=== PATIENT | female | born 1940 | race Caucasian/White ===

== ENCOUNTER → 2016-07-11 | Outpatient (CLI) | payer MEDICARE ==
--- NOTE | 2016-07-12 13:17 | ECHOF ---
Referral Reason:I27 Primary Pulmonary Hypertension MEASUREMENTS -------- HEIGHT: 157.5 cm WEIGHT: 79.4 kg BP: IVSd: 1.2 cm (0.6 - 1.1) LVIDd: 4.5 cm (3.9 - 5.3) LVPWd: 1.1 cm (0.6 - 1.1) IVSs: 1.4 cm LVIDs: 3.1 cm LVPWs: 1.4 cm LA Diam: 3.0 cm (2.7 - 3.8) Ao Diam: 3.4 cm (2.0 - 3.7) AV Cusp: 1.5 cm (1.5 - 2.6) LA Diam: 2.7 cm (2.7 - 3.8) MV EXCURSION: 15.965 mm (> 18.000) MV EF SLOPE: 78 mm/s (70 - 150) EPSS: 0.9 cm MV E Viktor: 0.46 m/s MV DecT: 259 ms MV A Viktor: 0.74 m/s MV E/A Ratio: 0.62 RAP: 5.00 mmHg RVSP: 25.57 mmHg FINDINGS -------- Sinus rhythm. This was a technically good study. The left ventricular size is normal. There is mild concentric left ventricular hypertrophy. Overall left ventricular systolic function is normal with, an EF between 55 - 60 %. The right ventricle is normal in size. The left atrial size is normal. The right atrial size is normal. There is mild aortic valve sclerosis. There is no evidence of aortic regurgitation. The mitral valve is normal. Mild mitral regurgitation is present. Mild tricuspid regurgitation present. There is no evidence of pulmonary hypertension. The right ventricular systolic pressure, as measured by Doppler, is 25.57mmHg. There is no pulmonic regurgitation present. The aortic root size is normal. There is no pericardial effusion. CONCLUSIONS -------- 1. Sinus rhythm. 2. There is no evidence of pulmonary hypertension. 3. There is no pulmonic regurgitation present. 4. There is no pericardial effusion. 5. This was a technically good study. 6. There is mild concentric left ventricular hypertrophy. 7. Overall left ventricular systolic function is normal with, an EF between 55 - 60 %. 8. The left atrial size is normal. 9. There is mild aortic valve sclerosis. 10. There is no evidence of aortic regurgitation. 11. Mild mitral regurgitation is present. 12. Mild tricuspid regurgitation present. [employer] INSTALLER: Blanca Hyde RDCS
== END | disposition home or self-care (01) ==
LOC: RADECHMAIN 14:32
PROVIDERS: ATTEND Internal Medicine
DX: I34.0 Nonrheumatic mitral (valve) insufficiency (principal); I36.1 Nonrheumatic tricuspid (valve) insufficiency; I35.8 Other nonrheumatic aortic valve disorders
CPT/HCPCS: 93306

== ENCOUNTER 2016-09-25 14:05 | Emergency (ER) | payer MEDICARE ==
[2016-09-25 14:12] VITALS: BP 128/87; PULSE 62; RESP 18; TEMP 98.7
[2016-09-25 14:54] LABS: Basophils % (A) 0 %; CH 32.2; CHCM 34.4; Eosinophils # (A) 0.1 k/uL (0-0.7); Eosinophils % (A) 2 %; HCT 44.9 % (34.0-46.0); HDW 2.31; HGB 15.1 gm/dL (11.4-16.0); Luc # (Auto) 0.13; Luc % (Auto) 2; Lymphocytes # (A) 1.8 k/uL (1.0-4.8); Lymphocytes % (A) 33 %; MCH 31.5 pg (25.0-35.0); MCHC 33.6 g/dL (31.0-37.0); MCV 93.9 fL (80.0-100.0); Monocytes # (A) 0.3 k/uL (0-1.0); Monocytes % (A) 5 %; Neutrophils # (A) 3.1 k/uL (1.3-7.7); Neutrophils % (A) 57 %; RBC 4.78 m/uL (3.80-5.40); RDW 13.3 % (11.5-15.5); WBC 5.5 k/uL (3.8-10.6); WBC (Perox) 5.21
[2016-09-25 15:02] LABS: ALT 26 U/L (9-52); AST 31 U/L (14-36); Alkaline Phosphatase 62 U/L (38-126); Anion Gap 8 mmol/L; Blood Urea Nitrogen 16 mg/dL (7-17); Calcium 9.2 mg/dL (8.4-10.2); Carbon Dioxide 25 mmol/L (22-30); Chloride 105 mmol/L (98-107); Glucose 88 mg/dL (74-99); Non-African American GFR(MDRD) >60 (>60 ml/min/1.73 sqM); Potassium 4.7 mmol/L (3.5-5.1); Sodium 138 mmol/L (137-145); Total Protein 7.3 g/dL (6.3-8.2)
[2016-09-25 15:05] LABS: Amorphous Sediment,Urine Occasional /hpf; Appearance,Urine Cloudy (Clear); Bilirubin,Urine Negative (Negative); Glucose,Urine (UA) Negative (Negative); Ketones,Urine 2+ (Negative); Leukocyte Esterase,Urine Large (Negative); Mucus,Urine Few /hpf; Nitrite,Urine Negative (Negative); Particle Count 5535; Protein,Urine Trace (Negative); RBC,Urine 2 /hpf (0-5); Specific Gravity,Urine 1.016 (1.001-1.035); Squamous Epithelial Cell,Urine 18 /hpf (0-4); UA Billing (MACRO vs. MICRO) MICRO; Urobilinogen,Urine <2.0 mg/dL (<2.0); WBC,Urine 19 /hpf (0-5)
--- NOTE | 2016-09-25 16:00 | ED ---
General Adult HPI - General Chief complaint: Urogenital Stated complaint: Poss UTI Time Seen by Provider: 09/25/16 14:18 Source: patient, family, RN notes reviewed, old records reviewed Mode of arrival: wheelchair Limitations: no limitations - History of Present Illness Initial comments: Chief complaint and history of present illness a 76-year-old female presents after having been on Macrodantin for 5 days for urinary tract infection. Patient reports she just feels tired and weak in general. Further investigation the patient's been feeling tired and weak for more than a year. She has difficulty sleeping. When she does fall asleep she states really 4 hours. Recently she was placed on Cymbalta for depression which irritated her stomach. - Related Data Home Medications Medication Instructions Recorded Confirmed Lisinopril [Zestril] 20 mg PO DAILY 09/20/15 09/25/16 Ascorbic Acid [Vitamin C] 500 mg PO DAILY 09/25/16 09/25/16 Aspirin 81 mg PO DAILY 09/25/16 09/25/16 Calcium Carbonate [Calcium] 600 mg PO DAILY 09/25/16 09/25/16 Ferrous Sulfate [Iron (65 MG 325 mg PO DAILY 09/25/16 09/25/16 Elemental)] Instaflex 1 cap PO DAILY 09/25/16 09/25/16 Magnesium Oxide [Magnesium] 500 mg PO DAILY 09/25/16 09/25/16 Multivitamins, Thera [Multivitamin 1 tab PO DAILY 09/25/16 09/25/16 (formulary)] Nitrofurantoin Monohyd/M-Cryst 100 mg PO BID 09/25/16 09/25/16 [Macrobid 100 mg Capsule] [place]-3 Fatty Acids/Fish Oil [Fish 1,000 mg PO DAILY 09/25/16 09/25/16 Oil 1,000 mg Capsule] Ubidecarenone [Co Q-10] 100 mg PO DAILY 09/25/16 09/25/16 Vitamin B Complex 1 cap PO DAILY 09/25/16 09/25/16 Previous Rx's Medication Instructions Recorded Ciprofloxacin HCl [Cipro] 500 mg PO Q12HR #14 tablet 09/25/16 Allergies Allergy/AdvReac Type Severity Reaction Status Date / Time No Known Allergies Allergy Verified 09/25/16 15:00 Review of Systems ROS Statement: Those systems with pertinent positive or pertinent negative responses have been documented in the HPI. Review of systems. No headache or chest pain or shortness of breath no GI/ problems other than being treated for urinary tract infection. She still has frequency and mild urgency. No dysuria. Patient's denying any headache or visual acuity. Changes no chest pain shortness of breath with generalized weakness which is been ongoing for a year or longer. She has difficulty sleeping and her physician is tried several medications to assist in sleep but they've not been effective. It was suggested the patient follow up with counselor psychologist or psychiatrist to help her with her sense of depression. All systems are reviewed. Past medical problems GERD, hypertension , pneumonia, leaky heart valve and irregular heart rate and rhythm. Surgeries close ectopy, orthopedic surgery, tonsillectomy. Instructed facial surgery. Family history non-contributory. Patient's later on stated that she may have some reaction to sulfa. Nonsmoker nondrinker ROS Other: All systems not noted in ROS Statement are negative. Past Medical History Past Medical History: GERD/Reflux, Hypertension, Pneumonia Additional Past Medical History / Comment(s): "leaky heart valve,irregular heart beat". hiatal hernia, hx kindey stones History of Any Multi-Drug Resistant Organisms: None Reported Past Surgical History: Cholecystectomy, Orthopedic Surgery, Tonsillectomy Additional Past Surgical History / Comment(s): reconstructive facial surgery, rt carpal tunnel, rt bunionectomy Past Anesthesia/Blood Transfusion Reactions: No Reported Reaction Past Psychological History: No Psychological Hx Reported Smoking Status: Never smoker Past Alcohol Use History: None Reported Past Drug Use History: None Reported - Past Family History Mother Family Medical History: Cancer General Exam - General Exam Comments Initial Comments: General: The patient is awake and alert, in no distress, and does not appear acutely ill. Complains of generally feeling weak for 1 year. She's had total workup several times during that time including an wound care nurse multiple labs done 1 month ago which she reports are negative. Recently placed on Cymbalta which made her have a mildly upset stomach so she stopped that. She's been on Macrodantin for 5 days. Still some urinary tract symptoms such as frequency and urgency but no dysuria. No blood in the urine. Vital signs shows temperature 98.7 pulse 60 respiratory rate 18 pulse ox 98% room air blood pressure 128/87 Eye: Pupils are equal, round and reactive to light, extra-ocular movements are intact ; there is normal conjunctiva bilaterally. No signs of icterus. Ears, nose, mouth and throat: There are moist mucous membranes and no oral lesions. Neck: The neck is supple, there is no tenderness . Cardiovascular: There is a regular rate and rhythm. Faint systolic murmur appreciated., rub or gallop is appreciated. Respiratory: Lungs are clear to auscultation, respirations are non-labored, breath sounds are equal. No wheezes, stridor, rales, or rhonchi. Gastrointestinal: Soft, non-distended, non-tender abdomen without masses or organomegaly noted. There is no rebound or guarding present. Bowel sounds are unremarkable. Back: There is no tenderness to palpation in the midline. Musculoskeletal: Normal ROM, no tenderness, There is no pedal edema. There is no calf tenderness or swelling. Neurological: No complaint of any focal or lateralizing symptoms. Skin: Skin is warm and dry and no rashes or lesions are noted. Psychiatric: Cooperative, somewhat flat affect. Does not argue that she may be depressed. Does not describe any suicidal thoughts. Encouraged to discuss this with her family physician for referral to a psychologist or psychiatrist. Patient agrees she will do this. Limitations: no limitations Course Vital Signs 09/25/16 14:09 Temperature 98.7 F Pulse Rate 62 Respiratory 18 Rate Blood Pressure 128/87 O2 Sat by Pulse 98 Oximetry Medical Decision Making - Medical Decision Making Medical decision making patient white count 5 hemoglobin 15 hematocrit of 44 with a potassium 4.7. BUN 16 creatinine 0.73 the GFR greater than 60. Glucose 88. TSH normal at 2.1. Urinalysis still shows significant number of red and white cells with large leuk esterase. The patient be placed on Cipro 500 twice a day for one week and advised to get her urine rechecked within the week after that. Also discussed with her family physician clinical depression. - Lab Data Result diagrams: 09/25/16 14:35 09/25/16 14:35 Lab Results 09/25/16 09/25/16 09/25/16 Range/Units 14:35 14:35 14:35 WBC 5.5 (3.8-10.6) k/uL RBC 4.78 (3.80-5.40) m/uL Hgb 15.1 (11.4-16.0) gm/dL Hct 44.9 (34.0-46.0) % MCV 93.9 (80.0-100.0) fL MCH 31.5 (25.0-35.0) pg MCHC 33.6 (31.0-37.0) g/dL RDW 13.3 (11.5-15.5) % Plt Count 194 (150-450) k/uL Neutrophils % 57 % Lymphocytes % 33 % Monocytes % 5 % Eosinophils % 2 % Basophils % 0 % Neutrophils # 3.1 (1.3-7.7) k/uL Lymphocytes # 1.8 (1.0-4.8) k/uL Monocytes # 0.3 (0-1.0) k/uL Eosinophils # 0.1 (0-0.7) k/uL Basophils # 0.0 (0-0.2) k/uL Sodium 138 (137-145) mmol/L Potassium 4.7 (3.5-5.1) mmol/L Chloride 105 (98-107) mmol/L Carbon Dioxide 25 (22-30) mmol/L Anion Gap 8 mmol/L BUN 16 (7-17) mg/dL Creatinine 0.73 (0.52-1.04) mg/dL Est GFR (MDRD) Af Amer >60 (>60 ml/min/1.73 sqM) Est GFR (MDRD) Non-Af >60 (>60 ml/min/1.73 sqM) Glucose 88 (74-99) mg/dL Calcium 9.2 (8.4-10.2) mg/dL Total Bilirubin 1.0 (0.2-1.3) mg/dL AST 31 (14-36) U/L ALT 26 (9-52) U/L Alkaline Phosphatase 62 (38-126) U/L Total Protein 7.3 (6.3-8.2) g/dL Albumin 4.4 (3.5-5.0) g/dL TSH 2.110 (0.465-4.680) mIU/L Urine Color Dark Yellow Urine Appearance Cloudy H (Clear) Urine pH 7.0 (5.0-8.0) Ur Specific [place] 1.016 (1.001-1.035) Urine Protein Trace H (Negative) Urine Glucose (UA) Negative (Negative) Urine Ketones 2+ H (Negative) Urine Blood Negative (Negative) Urine Nitrite Negative (Negative) Urine Bilirubin Negative (Negative) Urine Urobilinogen <2.0 (<2.0) mg/dL Ur Leukocyte Esterase Large H (Negative) Urine RBC 2 (0-5) /hpf Urine WBC 19 H (0-5) /hpf Ur Squamous Epith Cells 18 H (0-4) /hpf Amorphous Sediment Occasional H (None) /hpf Urine Mucus Few H (None) /hpf Disposition Clinical Impression: Urinary tract infection Disposition: HOME SELF-CARE Condition: Fair Instructions: Urinary Tract Infection in Women (ED) Additional Instructions: Follow-up with the family physician and ask about counseling with psychologist or psychiatrist for evaluation for situational depression. Continue with home medications and stop Macrodantin and take Cipro 500 twice daily 7 days also get urine rechecked within the week after finishing the antibiotics. Prescriptions: Ciprofloxacin HCl [Cipro] 500 mg PO Q12HR #14 tablet Referrals: Mell Fox MD [Primary Care Provider] - 1-2 days Time of Disposition: 16:08
== END 2016-09-25 16:19 | disposition home or self-care (01) ==
LOC: EC 14:05
DX: N39.0 Urinary tract infection, site not specified (principal); R53.1 Weakness; F32.9 Major depressive disorder, single episode, unspecified; K21.9 Gastro-esophageal reflux disease without esophagitis; I10 Essential (primary) hypertension; Z87.01 Personal history of pneumonia (recurrent); Z79.82 Long term (current) use of aspirin; Z79.899 Other long term (current) drug therapy
CPT/HCPCS: 36415; 80053; 81001; 84443; 85025; 87086; 99284

== ENCOUNTER → 2017-02-06 | Outpatient (CLI) | payer MEDICARE ==
--- NOTE | 2017-02-06 18:47 | BD ---
EXAMINATION TYPE: MG DEXA axial skeleton. DATE OF EXAM: 02/06/2017 COMPARISON: 01.09.2014 CLINICAL HISTORY: PT IS A 76 YR OLD FEMALE: ICD10 CODE: Z78.0 POST MENOPAUSAL Height: 68 Weight: 170 FRAX RISK QUESTIONS: Alcohol (3 or more units per day): NO Family History (Parent hip fracture): NO Glucocorticoids (More than 3mos): NO (Ex: prednisone, prednisolone, methylprednisolone, dexamethasone, and hydrocortisone). History of Fracture in Adulthood: YES Secondary Osteoporosis: NO 1. Type 1 Diabetes: NO 2. Hyperthyroidism: NO 3. Menopause before 45: NO 4. Malnutrition: NO 5. Chronic liver disease: NO Rheumatoid Arthritis: NO Current Tobacco Use: NO RISK FACTORS HISTORY OF: BOTH FEET/TOES, LT ANKLE AND LT ORBIT/FACIAL BONES >50 YRS OLD History of Wrist Fracture: RT When: > 50 YRS, 73 YRS OLD Family History of Osteoporosis: NO Active: YES Diet low in dairy products/other sources of calcium: NO Postmenopausal woman: YES AT AGE 53 Take estrogen and/or progesterone medications: TOOK IN PAST 3-4 YRS Lost more than 2 inches in height since high school: YES Hyperparathyroidism: NO Adrenal Insufficiency: NO MEDICATIONS: Prednisone or other steroids: PREDNISONE ON AND OFF Additional Medications: BP MEDS, VIIBRYD, VIT D AND CALCIUM Additional History: HYPERTENSION, INSOMNIA EXAM MEASUREMENTS: Bone mineral densitometry was performed using the [employer]ek System. Bone mineral density as measured about the Lumbar spine is: ----- L1-L4(G/cm2): 1.140 T Score Values are as follows: ----- L1: -1.6 ----- L2: -1.9 ----- L3: 0.2 ----- L4: 1.1 ----- L1-L4: -0.3 Bone mineral density has: Decreased -3.6% since study of: 01.09.2014 Bone mineral density about the R hip (g/cm2): 0.811 Bone mineral density about the L hip (g/cm2): 0.806 T Score values are as follows: -----R Neck: -0.5 -----L Neck: -1.5 -----R Total: -1.6 -----L Total: -1.6 Bone mineral density has: Decreased -5.9% since study of: 01.09.2014 FRAX%'S: THERE IS A 17.3% CHANCE OF A MAJOR OSTEOPOROTIC FX AND A 3.2% OF HIP FX.....PROBABILITY O F FX IN 10 YRS TIME IMPRESSION: Osteopenia (T Score between -2.5 and -1) as noted by T score values with respect to both hips. There is slightly increased risk of fracture and the patient may be considered for treatment. Re-Screen 2-5 years. NOTE: T-SCORE=SD OF THE YOUNG ADULT MEAN.
--- NOTE | 2017-02-07 06:58 | MM ---
Reason for exam: screening (asymptomatic). Last mammogram was performed 1 year ago. History: Patient is postmenopausal and has history of other cancer at age 74. Took estrogen for 5 years beginning at age 71. Physical Findings: A clinical breast exam by your physician is recommended on an annual basis and results should be correlated with mammographic findings. MG 3D Screening Mammo W/Cad Bilateral CC and MLO view(s) were taken. Prior study comparison: February 05, 2016, bilateral MG 3d screening mammo w/cad. February 03, 2015, bilateral MG screening mammo w CAD. January 14, 2014, right breast MG work up mamm w CAD RT. The breast tissue is heterogeneously dense. This may lower the sensitivity of mammography. Finding: There are a few typically benign round, diffuse calcifications in both breasts. There is a chronic nodularity bilaterally, retroaerolar region. There is no discrete abnormality. ASSESSMENT: Benign, BI-RAD 2 RECOMMENDATION: Routine screening mammogram of both breasts in 1 year.
== END | disposition home or self-care (01) ==
LOC: RADMAMWWP 11:33
PROVIDERS: ATTEND Internal Medicine
DX: Z12.31 Encounter for screening mammogram for malignant neoplasm of breast (principal); M85.89 Other specified disorders of bone density and structure, multiple sites; Z78.0 Asymptomatic menopausal state
CPT/HCPCS: 77080; 77063; G0202

== ENCOUNTER 2017-09-18 10:32 | Emergency (ER) | payer MEDICARE ==
[2017-09-18 10:39] VITALS: PULSE 71
[2017-09-18] MEDS ORDERED: ONDANSETRON 4 MG/2 ML VIAL IVP STA (11:04)
[2017-09-18] MEDS ORDERED: FAMOTIDINE 20 MG/2 ML VIAL IV STA (11:04)
[2017-09-18] MEDS ORDERED: ACETAMINOPHEN IV (For NPO) 1,000 MG in EMPTY BAG 1 BAG IVPB STA (11:04)
[2017-09-18] MEDS ORDERED: SODIUM CHLORIDE 0.9% 1,000 ML IV STA (11:04)
--- NOTE | 2017-09-18 11:07 | ED ---
General Adult HPI - General Chief complaint: Abdominal Pain Stated complaint: abdominal pain Time Seen by Provider: 09/18/17 10:41 Source: patient, EMS, RN notes reviewed Mode of arrival: EMS Limitations: no limitations - History of Present Illness Initial comments: Patient is a 77-year-old female presented to the emergency room today by EMS with chief complaint of nausea vomiting diarrhea times one day. Patient does admit to cramping type abdominal pain that comes and goes and middle of the abdomen. Patient denies any other complaints or symptoms. Patient denies any recent fever, chills, shortness of breath, chest pain, back pain, numbness or tingling, dysuria or hematuria, constipation, headaches or visual changes, or any other complaints. - Related Data Home Medications Medication Instructions Recorded Confirmed Lisinopril [Zestril] 20 mg PO DAILY 09/20/15 09/18/17 [facility] 2 tab PO BID 09/18/17 09/18/17 Vilazodone HCl [Viibryd] 40 mg PO DAILY 09/18/17 09/18/17 hydrOXYzine HCL [Atarax] 25 mg PO HS 09/18/17 09/18/17 Previous Rx's Medication Instructions Recorded Ondansetron Odt [Zofran ODT] 4 mg PO Q8HR PRN #20 tab 09/18/17 Allergies Allergy/AdvReac Type Severity Reaction Status Date / Time No Known Allergies Allergy Verified 09/18/17 11:19 Review of Systems ROS Statement: Those systems with pertinent positive or pertinent negative responses have been documented in the HPI. ROS Other: All systems not noted in ROS Statement are negative. Past Medical History Past Medical History: GERD/Reflux, Hypertension, Pneumonia Additional Past Medical History / Comment(s): "leaky heart valve,irregular heart beat". hiatal hernia, hx kindey stones History of Any Multi-Drug Resistant Organisms: None Reported Past Surgical History: Cholecystectomy, Orthopedic Surgery, Tonsillectomy Additional Past Surgical History / Comment(s): cataract extraction, reconstructive facial surgery, rt carpal tunnel, rt bunionectomy Past Anesthesia/Blood Transfusion Reactions: No Reported Reaction Past Psychological History: Depression Smoking Status: Never smoker Past Alcohol Use History: None Reported Past Drug Use History: None Reported - Past Family History Mother Family Medical History: Cancer General Exam - General Exam Comments Initial Comments: General: The patient is awake and alert, in no distress, and does not appear acutely ill. Eye: Pupils are equal, round and reactive to light, extra-ocular movements are intact. No nystagmus. There is normal conjunctiva bilaterally. No signs of icterus. Ears, nose, mouth and throat: There are moist mucous membranes and no oral lesions. Neck: The neck is supple, there is no tenderness or JVD. Cardiovascular: There is a regular rate and rhythm. No murmur, rub or gallop is appreciated. Respiratory: Lungs are clear to auscultation, respirations are non-labored, breath sounds are equal. No wheezes, stridor, rales, or rhonchi. Gastrointestinal: Admits soft on palpation. Patient does have mild tenderness epigastric. Mild tenderness lower abdomen and middle. No rebound tenderness. No guarding. No CVA tenderness. Musculoskeletal: Normal ROM, no tenderness. Strength 5/5. Sensation intact. Pulses equal bilaterally 2+. Neurological: A&O x 3. CN II-XII intact, There are no obvious motor or sensory deficits. Coordination appears grossly intact. Speech is normal. Skin: Skin is warm and dry and no rashes or lesions are noted. Psychiatric: Cooperative, appropriate mood & affect, normal judgment. Limitations: no limitations Course Vital Signs 09/18/17 10:34 Temperature 98.1 F Pulse Rate 71 Respiratory 18 Rate Blood Pressure 171/86 O2 Sat by Pulse 100 Oximetry Medical Decision Making - Medical Decision Making Patient reexamined at this time shows no signs of distress. She's had no vomiting here the emergency room. She states that she still does feel somewhat nauseous. Patient's CT of the abdomen does show some renal cyst that has been redemonstrated from prior. Small hiatal hernia. No other acute abnormalities. Results were discussed with the patient. Patient's labs been reviewed unremarkable. Patient's abdomen soft nontender. Patient will be discharged home with nausea medication. Advise follow-up family doctor next 2 days return here to the emergency room if any symptoms increase or worsen or for any other concerns. - Lab Data Result diagrams: 09/18/17 11:33 09/18/17 11:33 Lab Results 09/18/17 09/18/17 09/18/17 Range/Units 11:33 11:33 12:39 WBC 6.0 (3.8-10.6) k/uL RBC 4.79 (3.80-5.40) m/uL Hgb 14.8 (11.4-16.0) gm/dL Hct 43.1 (34.0-46.0) % MCV 90.0 (80.0-100.0) fL MCH 30.9 (25.0-35.0) pg MCHC 34.3 (31.0-37.0) g/dL RDW 13.2 (11.5-15.5) % Plt Count 178 (150-450) k/uL Neutrophils % 77 % Lymphocytes % 18 % Monocytes % 4 % Eosinophils % 1 % Basophils % 0 % Neutrophils # 4.6 (1.3-7.7) k/uL Lymphocytes # 1.1 (1.0-4.8) k/uL Monocytes # 0.2 (0-1.0) k/uL Eosinophils # 0.0 (0-0.7) k/uL Basophils # 0.0 (0-0.2) k/uL Sodium 142 (137-145) mmol/L Potassium 4.0 (3.5-5.1) mmol/L Chloride 105 (98-107) mmol/L Carbon Dioxide 24 (22-30) mmol/L Anion Gap 13 mmol/L BUN 12 (7-17) mg/dL Creatinine 0.66 (0.52-1.04) mg/dL Est GFR (CKD-EPI)AfAm >90 (>60 ml/min/1.73 sqM) Est GFR (CKD-EPI)NonAf 86 (>60 ml/min/1.73 sqM) Glucose 107 H (74-99) mg/dL Calcium 9.2 (8.4-10.2) mg/dL Total Bilirubin 0.8 (0.2-1.3) mg/dL AST 21 (14-36) U/L ALT 28 (9-52) U/L Alkaline Phosphatase 68 (38-126) U/L Total Protein 6.6 (6.3-8.2) g/dL Albumin 4.3 (3.5-5.0) g/dL Amylase 57 (30-110) U/L Lipase 243 (23-300) U/L Urine Color Yellow Urine Appearance Clear (Clear) Urine pH 8.0 (5.0-8.0) Ur Specific [place] 1.012 (1.001-1.035) Urine Protein Negative (Negative) Urine Glucose (UA) Negative (Negative) Urine Ketones 2+ H (Negative) Urine Blood Negative (Negative) Urine Nitrite Negative (Negative) Urine Bilirubin Negative (Negative) Urine Urobilinogen <2.0 (<2.0) mg/dL Ur Leukocyte Esterase Negative (Negative) Disposition Clinical Impression: Nausea vomiting and diarrhea Disposition: HOME SELF-CARE Condition: Good Instructions: Abdominal Pain (ED) Additional Instructions: Please use medication as discussed. Please follow-up with family doctor in the next 2 days of symptoms have not improved. Please return to emergency room if the symptoms increase or worsen or for any other concerns. Prescriptions: Ondansetron Odt [Zofran ODT] 4 mg PO Q8HR PRN #20 tab PRN Reason: Nausea Is patient prescribed a controlled substance at d/c from ED?: No Referrals: Mell Fox MD [Primary Care Provider] - 1-2 days Time of Disposition: 13:34
[2017-09-18 11:53] LABS: Basophils % (A) 0 %; Eosinophils % (A) 1 %; HCT 43.1 % (34.0-46.0); HGB 14.8 gm/dL (11.4-16.0); Lymphocytes # (A) 1.1 k/uL (1.0-4.8); Lymphocytes % (A) 18 %; MCH 30.9 pg (25.0-35.0); MCHC 34.3 g/dL (31.0-37.0); Mean Platelet Volume 6.6; Monocytes # (A) 0.2 k/uL (0-1.0); Monocytes % (A) 4 %; Neutrophils # (A) 4.6 k/uL (1.3-7.7); Neutrophils % (A) 77 %; Platelet Count 178 k/uL (150-450); RBC 4.79 m/uL (3.80-5.40); RDW 13.2 % (11.5-15.5)
[2017-09-18 11:56] LABS: ALT 28 U/L (9-52); AST 21 U/L (14-36); Albumin 4.3 g/dL (3.5-5.0); Alkaline Phosphatase 68 U/L (38-126); Amylase 57 U/L (30-110); Anion Gap 13 mmol/L; Blood Urea Nitrogen 12 mg/dL (7-17); Calcium 9.2 mg/dL (8.4-10.2); Carbon Dioxide 24 mmol/L (22-30); Chloride 105 mmol/L (98-107); Glucose 107 mg/dL (74-99); Lipase 243 U/L (23-300); Sodium 142 mmol/L (137-145); Total Bilirubin 0.8 mg/dL (0.2-1.3); Total Protein 6.6 g/dL (6.3-8.2)
[2017-09-18 12:55] LABS: Appearance,Urine Clear (Clear); Bilirubin,Urine Negative (Negative); Blood,Urine Negative (Negative); Color,Urine Yellow; Glucose,Urine (UA) Negative (Negative); Ketones,Urine 2+ (Negative); Leukocyte Esterase,Urine Negative (Negative); Nitrite,Urine Negative (Negative); Protein,Urine Negative (Negative); Specific Gravity,Urine 1.012 (1.001-1.035); Urobilinogen,Urine <2.0 mg/dL (<2.0)
--- NOTE | 2017-09-18 13:10 | CT ---
EXAMINATION TYPE: CT abdomen pelvis w con DATE OF EXAM: 09/18/2017 COMPARISON: 12/31/2013 HISTORY: Patient complains of epigastric pain and nausea. CT DLP: 557.8 mGycm CONTRAST: CT scan of the abdomen and pelvis is performed without Oral Contrast and with IV Contrast, patient in jected with 100 mL of Isovue 300. FINDINGS: LUNG BASES-: No visible nodule. No infiltrate. Sliding-type hiatal hernia. LIVER/GB: Cholecystectomy clips are in place. Mild hepatic steatosis. No space occupying hepatic l esion. Biliary tree is of normal caliber. PANCREAS: No inflammation. No distinct mass. SPLEEN: No splenic enlargement. No lesion seen. ADRENALS: No nodule. No thickening. KIDNEYS/BLADDER: No hydronephrosis. No nephrolithiasis. Bilateral renal cysts are again noted. Urin herbert bladder grossly unremarkable. BOWEL: Normal appendix. Normal bowel caliber. No inflammation. GENITAL ORGANS: No gross abnormality. LYMPH NODES: No greater than 1cm abdominal or pelvic lymph nodes are appreciated. AORTA: No significant abnormality. OSSEOUS STRUCTURES: No significant abnormality is seen. OTHER: No significant additional abnormality is seen. IMPRESSION: 1. No acute intra-abdominal process. 2. Renal cystic changes noted. 3. Small sliding-type hiatal hernia.
[2017-09-18 13:59] VITALS: BP 150/90; RESP 20; TEMP 97.9
== END 2017-09-18 13:47 | disposition home or self-care (01) ==
LOC: EC 10:32
DX: R11.2 Nausea with vomiting, unspecified (principal); R19.7 Diarrhea, unspecified; N28.1 Cyst of kidney, acquired; K44.9 Diaphragmatic hernia without obstruction or gangrene; R10.9 Unspecified abdominal pain; I10 Essential (primary) hypertension; F32.9 Major depressive disorder, single episode, unspecified; Z79.899 Other long term (current) drug therapy; Z90.49 Acquired absence of other specified parts of digestive tract
CPT/HCPCS: 99284; 96374; 96375 ×2; 96361; 36415; 80053; 82150; 83690; 85025; 81003; 74177; J2405; J0131; Q9967

== ENCOUNTER 2017-10-08 13:14 | Emergency (ER) | payer MEDICARE ==
[2017-10-08 13:36] VITALS: RESP 18; TEMP 98.2
[2017-10-08] MEDS ORDERED: FAMOTIDINE 20 MG/2 ML VIAL IV STA (13:52)
[2017-10-08] MEDS ORDERED: DICYCLOMINE 20 MG TAB PO STA (13:52)
[2017-10-08] MEDS ORDERED: SODIUM CHLORIDE 0.9% 1,000 ML IV ONE (13:52)
[2017-10-08] MEDS ORDERED: TRIMETHOBENZAMIDE 300 MG CAP PO STA (13:53)
--- NOTE | 2017-10-08 13:58 | ED ---
Abdominal Pain HPI - General Chief Complaint: Abdominal Pain Stated Complaint: IBS Time Seen by Provider: 10/08/17 13:41 Source: patient Mode of arrival: ambulatory Limitations: no limitations - History of Present Illness Initial Comments: 77 yoF presenting with cramping abdominal pain, diarrhea, and nausea. Patient states she has had these symptoms intermittently at night for many years. Over the last month they have increased in frequency and severity. She was seen on 09/18 this month for similar symptoms, had a normal CT abdomen pelvis, and was discharged home with Zofran. Patient states she felt improved after but then this Monday the symptoms returned. She initially was feeling constipated and used a Fleet enema with some relief. She has now had multiple episodes of yellow diarrhea and severe nausea but no vomiting. She states the symptoms are accompanied by severe abdominal cramping that is improved with bowel activity, but not alleviated, and are worse at night. The zofran is not helping her symptoms and her last dose was OILSEED MEAT PRESSER. She denies history of IBD, IBS, and states she had a normal colonoscopy two years prior. She has been trying to follow up with her primary care doctor for a referral to a GI doctor (required by her insurance) but has been unable to obtain an appointment. She denies urinary symptoms, chest pain, shortness of breath, F/C. She denies history of atrial fibrillation or anticoagulation use. Denies melena, hematochezia, or other bloody bowel movements. - Related Data Home Medications Medication Instructions Recorded Confirmed Lisinopril [Zestril] 20 mg PO DAILY 09/20/15 10/08/17 [facility] 2 tab PO BID 09/18/17 10/08/17 Vilazodone HCl [Viibryd] 40 mg PO DAILY 09/18/17 10/08/17 Previous Rx's Medication Instructions Recorded Dicyclomine [Bentyl] 10 mg PO TID PRN #20 capsule 10/08/17 Allergies Allergy/AdvReac Type Severity Reaction Status Date / Time No Known Allergies Allergy Verified 10/08/17 13:36 Review of Systems ROS Statement: Those systems with pertinent positive or pertinent negative responses have been documented in the HPI. Review of Systems Constitutional: Denies fever, chills Eyes: Denies change in vision, Denies pain Ears, nose, mouth, throat: Denies headaches, Denies sore throat Cardiovascular: Denies chest pain. Denies palpitations Respiratory: Denies shortness of breath, Denies cough Gastrointestinal: Positive abdominal pain, nausea, diarrhea. Genitourinary: Denies hematuria, Denies infections Musculoskeletal: Denies pain, Denies swelling Integumentary: Denies rash Neurological: Denies headache, focal weakness, focal numbness Psychiatric: Denies anxiety, Denies depression Hematologic/Lymphatic: Denies easy bleeding or bruising ROS Other: All systems not noted in ROS Statement are negative. Past Medical History Past Medical History: GERD/Reflux, Hypertension, Pneumonia Additional Past Medical History / Comment(s): "leaky heart valve,irregular heart beat". hiatal hernia, hx kindey stones History of Any Multi-Drug Resistant Organisms: None Reported Past Surgical History: Cholecystectomy, Orthopedic Surgery, Tonsillectomy Additional Past Surgical History / Comment(s): cataract extraction, reconstructive facial surgery, rt carpal tunnel, rt bunionectomy Past Anesthesia/Blood Transfusion Reactions: No Reported Reaction Past Psychological History: Depression Smoking Status: Never smoker Past Alcohol Use History: None Reported Past Drug Use History: None Reported - Past Family History Mother Family Medical History: Cancer General Exam - General Exam Comments Initial Comments: General: Awake, alert, No acute Distress HENT: Normocephalic. Atraumatic Eyes: PERRL. EOMI. No scleral icterus. No injected conjunctiva Neck: Full ROM Chest/Lungs: Clear to auscultation bilaterally. No wheezing, rhonchi, or rales Cardiac: Regular rate, rhythm. No murmurs or rubs Abdomen/GI: [Soft, nontender, nondistended. No rebound, guarding, or rigidity. Musculoskeletal: Full ROM Skin: Warm, dry, intact Neurologic: A/Ox3, no weakness, no sensory deficit, no abnormal gait, no coordination deficit Limitations: no limitations Course Vital Signs 10/08/17 13:33 Temperature 98.2 F Pulse Rate 73 Respiratory 18 Rate Blood Pressure 142/103 O2 Sat by Pulse 99 Oximetry Medical Decision Making - Medical Decision Making 77-year-old female presenting with nausea vomiting diarrhea. Initial exam the patient is awake, alert, no acute distress. VSS. Patient's laboratory workup unremarkable. CT showed a renal cyst but no other acute process. Patient's symptoms improved with medication. Patient's symptoms likely related to diet and possibly IBS. She was instructed to follow up with the GI doctor she has been wanting to see, as well as her primary care physician. She had no chest pain, upper abdominal pain, or shortness of breath. No cardiac workup was indicated. No further emergent workup indicated. The patient was given return to ED instructions. They were instructed to follow up with their primary care provider. Stable for discharge at this time. - Lab Data Result diagrams: 10/08/17 14:20 10/08/17 14:20 Lab Results 10/08/17 10/08/17 10/08/17 Range/Units 14:20 14:20 14:20 WBC 5.5 (3.8-10.6) k/uL RBC 4.80 (3.80-5.40) m/uL Hgb 15.2 (11.4-16.0) gm/dL Hct 43.9 (34.0-46.0) % MCV 91.4 (80.0-100.0) fL MCH 31.6 (25.0-35.0) pg MCHC 34.6 (31.0-37.0) g/dL RDW 13.4 (11.5-15.5) % Plt Count 182 (150-450) k/uL Neutrophils % 68 % Lymphocytes % 25 % Monocytes % 4 % Eosinophils % 2 % Basophils % 0 % Neutrophils # 3.7 (1.3-7.7) k/uL Lymphocytes # 1.4 (1.0-4.8) k/uL Monocytes # 0.2 (0-1.0) k/uL Eosinophils # 0.1 (0-0.7) k/uL Basophils # 0.0 (0-0.2) k/uL Sodium 141 (137-145) mmol/L Potassium 4.0 (3.5-5.1) mmol/L Chloride 104 (98-107) mmol/L Carbon Dioxide 27 (22-30) mmol/L Anion Gap 10 mmol/L BUN 15 (7-17) mg/dL Creatinine 0.80 (0.52-1.04) mg/dL Est GFR (CKD-EPI)AfAm 83 (>60 ml/min/1.73 sqM) Est GFR (CKD-EPI)NonAf 72 (>60 ml/min/1.73 sqM) Glucose 94 (74-99) mg/dL Calcium 9.3 (8.4-10.2) mg/dL Total Bilirubin 0.9 (0.2-1.3) mg/dL Conjugated Bilirubin 0.0 (0.0-0.3) mg/dL Unconjugated Bilirubin 0.6 (0.0-1.1) mg/dL Delta Bilirubin 0.3 H (0.0-0.2) mg/dL AST 22 (14-36) U/L ALT 30 (9-52) U/L Alkaline Phosphatase 64 (38-126) U/L Total Protein 6.9 (6.3-8.2) g/dL Albumin 4.5 (3.5-5.0) g/dL Lipase 256 (23-300) U/L Urine Color Yellow Urine Appearance Clear (Clear) Urine pH 6.0 (5.0-8.0) Ur Specific [place] 1.021 (1.001-1.035) Urine Protein Trace H (Negative) Urine Glucose (UA) Negative (Negative) Urine Ketones 2+ H (Negative) Urine Blood Negative (Negative) Urine Nitrite Negative (Negative) Urine Bilirubin Negative (Negative) Urine Urobilinogen <2.0 (<2.0) mg/dL Ur Leukocyte Esterase Trace H (Negative) Urine RBC 2 (0-5) /hpf Urine WBC 3 (0-5) /hpf Ur Squamous Epith Cells 1 (0-4) /hpf Amorphous Sediment Rare H (None) /hpf Urine Bacteria Rare H (None) /hpf Urine Mucus Many H (None) /hpf Disposition Clinical Impression: Emesis, IBS (irritable bowel syndrome), Cramp, abdominal Disposition: HOME SELF-CARE Condition: Good Additional Instructions: Follow up with your primary care doctor this week. Call GI doctor and make an appointment. Prescriptions: Dicyclomine [Bentyl] 10 mg PO TID PRN #20 capsule PRN Reason: pain Is patient prescribed a controlled substance at d/c from ED?: No Referrals: Mell Fox MD [Primary Care Provider] - 1-2 days
[2017-10-08 14:35] LABS: Basophils % (A) 0 %; Eosinophils # (A) 0.1 k/uL (0-0.7); Eosinophils % (A) 2 %; HCT 43.9 % (34.0-46.0); HGB 15.2 gm/dL (11.4-16.0); Lymphocytes # (A) 1.4 k/uL (1.0-4.8); Lymphocytes % (A) 25 %; MCH 31.6 pg (25.0-35.0); MCHC 34.6 g/dL (31.0-37.0); MCV 91.4 fL (80.0-100.0); Mean Platelet Volume 6.5; Monocytes # (A) 0.2 k/uL (0-1.0); Monocytes % (A) 4 %; Neutrophils # (A) 3.7 k/uL (1.3-7.7); Neutrophils % (A) 68 %; Platelet Count 182 k/uL (150-450); RDW 13.4 % (11.5-15.5); WBC 5.5 k/uL (3.8-10.6)
[2017-10-08 14:40] LABS: Amorphous Sediment,Urine Rare /hpf; Appearance,Urine Clear (Clear); Bacteria,Urine Rare /hpf; Bilirubin,Urine Negative (Negative); Blood,Urine Negative (Negative); Color,Urine Yellow; Glucose,Urine (UA) Negative (Negative); Ketones,Urine 2+ (Negative); Leukocyte Esterase,Urine Trace (Negative); Mucus,Urine Many /hpf; Nitrite,Urine Negative (Negative); Protein,Urine Trace (Negative); RBC,Urine 2 /hpf (0-5); Specific Gravity,Urine 1.021 (1.001-1.035); Squamous Epithelial Cell,Urine 1 /hpf (0-4); Urobilinogen,Urine <2.0 mg/dL (<2.0); WBC,Urine 3 /hpf (0-5)
[2017-10-08 14:45] LABS: Albumin 4.5 g/dL (3.5-5.0); Bilirubin, Delta 0.3 mg/dL (0.0-0.2); Bilirubin,Unconjugated 0.6 mg/dL (0.0-1.1); Calcium 9.3 mg/dL (8.4-10.2); Total Bilirubin 0.9 mg/dL (0.2-1.3); Total Protein 6.9 g/dL (6.3-8.2)
--- NOTE | 2017-10-08 16:25 | CT ---
EXAMINATION TYPE: CT angio abdomen pelvis DATE OF EXAM: 10/08/2017 COMPARISON: 09/18/2017 INDICATION: Treytent complains of nausea, diarrhea, and generalized abdominal pain. DLP: 667.7 mGycm, Automated exposure control for dose reduction was used. CONTRAST: 100 mL of Isovue 300. Study performed without Oral Contrast TECHNIQUE: Axial images were obtained from above the diaphragm to the pubic rami in the axial plane a t 5 mm thick sections. Reconstructed images are reviewed on the computer in the coronal plane. FINDINGS: Limited CT sections are obtained the lung bases. There is some tenting of the mediastinal border in the right middle lobe. Some atelectasis or scarring could be considered. Lung bases otherwise appear clear. CT ABDOMEN: Liver: Normal Spleen: Normal Pancreas: Normal, Pancreatic duct at the head of the pancreas is normal 0.3 cm. Adrenal glands: The adrenal glands are normal. Gallbladder: Surgically absent Kidneys: No masses are evident. No hydronephrosis is present. There is a 2.1 cm cyst measuring 19 H [place] units on the posterior lateral right mid kidney. Delayed images were obtained through the kidneys, which remain unremarkable. Aorta: Normal Inferior vena cava: Normal. CT PELVIS: Loops of bowel within the abdomen and pelvis are normal. There are loops of bowel which are incom pletely distended or lack oral contrast limiting their evaluation. Appendix: Not visualized. No suspicious inflammatory changes are evident. Urinary bladder: Normal. Genitourinary structures: Uterus and adnexal regions are normal. Osseous structures: No suspicious lytic or sclerotic lesions. Facet degenerative changes are within t he lumbar spine. IMPRESSIONS: 1. Right renal cyst. 2. No suspicious acute changes within the abdomen or pelvis.
[2017-10-08 16:54] VITALS: BP 148/72; PULSE 70
== END 2017-10-08 16:53 | disposition home or self-care (01) ==
LOC: EC 13:14
DX: K58.9 Irritable bowel syndrome, unspecified (principal); R11.2 Nausea with vomiting, unspecified; N28.1 Cyst of kidney, acquired; I10 Essential (primary) hypertension; F32.9 Major depressive disorder, single episode, unspecified; Z79.899 Other long term (current) drug therapy; Z90.49 Acquired absence of other specified parts of digestive tract
CPT/HCPCS: 36415; 80048; 80076; 83690; 85025; 81001; 74174; 99284; 96374; 96361; Q9967

== ENCOUNTER → 2018-02-13 | Outpatient (CLI) | payer MEDICARE ==
--- NOTE | 2018-02-15 11:29 | MM ---
Reason for exam: screening (asymptomatic). Last mammogram was performed 1 year ago. History: Patient is postmenopausal and has history of other cancer at age 74. Took estrogen for 5 years beginning at age 71. Physical Findings: A clinical breast exam by your physician is recommended on an annual basis and results should be correlated with mammographic findings. MG 3D Screening Mammo W/Cad Bilateral CC and MLO view(s) were taken. Prior study comparison: February 06, 2017, bilateral MG 3d screening mammo w/cad. February 05, 2016, bilateral MG 3d screening mammo w/cad. The breast tissue is heterogeneously dense. This may lower the sensitivity of mammography. Stable benign calcifications. There is no discrete abnormality. No significant changes when compared with prior studies. ASSESSMENT: Benign, BI-RAD 2 RECOMMENDATION: Routine screening mammogram of both breasts in 1 year.
== END | disposition home or self-care (01) ==
LOC: RADMAMWWP 13:55
PROVIDERS: ATTEND Internal Medicine
DX: Z12.31 Encounter for screening mammogram for malignant neoplasm of breast (principal)
CPT/HCPCS: 77063; 77067

== ENCOUNTER → 2018-03-28 | Outpatient (CLI) | payer MEDICARE ==
[2018-03-28 16:01] LABS: HCT 42.4 % (34.0-46.0); HGB 14.1 gm/dL (11.4-16.0); MCHC 33.3 g/dL (31.0-37.0); MCV 93.3 fL (80.0-100.0); Mean Platelet Volume 7.1; Platelet Count 189 k/uL (150-450); RBC 4.54 m/uL (3.80-5.40); RDW 12.9 % (11.5-15.5); WBC 6.1 k/uL (3.8-10.6)
[2018-03-28 16:13] LABS: Potassium 4.8 mmol/L (3.5-5.1)
== END | disposition home or self-care (01) ==
LOC: LABPAT 15:38
PROVIDERS: ATTEND Internal Medicine Interventional Cardiology
DX: Z01.812 Encounter for preprocedural laboratory examination (principal); I10 Essential (primary) hypertension; R94.39 Abnormal result of other cardiovascular function study; I49.1 Atrial premature depolarization
CPT/HCPCS: 80051; 82565; 84520; 85027

== ENCOUNTER → 2018-04-03 | Day surgery (SDC) | payer MEDICARE ==
[2018-03-29 11:54] VITALS: BMI 25.7
[~2018-04-03] MED LIST: ALPRAZolam 0.25 MG TAB PO PRN; ALPRAZolam 0.5 MG TAB PO PRN; AMITRIPTYLINE HCL 10 MG TAB PO SCH; ASPIRIN 325 MG TAB PO STA; ATORVASTATIN 80 MG TAB PO STA; DICYCLOMINE 10 MG CAP PO PRN; HEPARIN SODIUM 1,000 UN/ML (10ML VL) IV ONE; HEPARIN SODIUM 1,000 UN/ML (10ML VL) ONE; IOPAMIDOL-370 125ML BTL INJ ONE; LIDOCAINE 1% INJ 10MG/ML (20 ML MDV) ONE; LIDOCAINE 1% INJ 10MG/ML (20 ML MDV) SQ ONE; LISINOPRIL 20 MG TAB PO SCH; MIDAZOLAM 2 MG/2 ML VIAL IVP ONE; NITROGLYCERIN SL TABS 0.4 MG TAB SUBLINGUAL PRN; NON-FORMULARY DRUG (Aspirin [Adult Low Dose Aspirin Ec] 81 MG) PO SCH; NON-FORMULARY DRUG (Calcium Carbonate [Calcium] 600 MG) PO SCH; NON-FORMULARY DRUG (Magnesium [Magnesium] 200 MG) PO SCH; NON-FORMULARY DRUG (Vilazodone Hcl [Viibryd] 40 MG) PO SCH; NON-FORMULARY DRUG (Vit C/E/Zn/Coppr/Lutein/Zeaxan [Preservision Areds 2 Softgel] 1 EACH) PO SCH; RX INFO: IV CONTRAST WAS GIVEN 1 EACH MISC MISCELLANE PRN; SODIUM CHLORIDE 0.9% 1,000 ML IV ONE; SODIUM CHLORIDE 0.9% 1,000 ML IV SCH; SODIUM CHLORIDE 0.9% 1,000 ML in EMPTY BAG 1 BAG IV ONE; VERAPAMIL 2.5 MG/ML 2 ML AMP ONE; VERAPAMIL SYRINGE (5 MG/10 ML) INTRAARTER ONE; fentaNYL (PF) 50 MCG/ML 2 ML AMP IV ONE; fentaNYL (PF) 50 MCG/ML 2 ML AMP ONE
[2018-04-03 07:05] VITALS: RESP 16; TEMP 97.8
--- NOTE | 2018-04-03 08:32 | CC ---
CARDIAC CATHETERIZATION REPORT Mrs. Bae is a 77-year-old female with known history of hypertension who has been complaining of progressive dyspnea on exertion. She underwent a myocardial perfusion imaging that showed a partial reversible anterior wall defect. In view of that, recommendations were made regarding cardiac catheterization. The procedures, risks and complications were discussed with the patient who is in full understanding and agreement. PROCEDURE: Patient was brought to the labor gang supervisor in a fasting semi-sedated state after receiving fentanyl and Benadryl and achieving moderate conscious sedated state. Using Xylocaine anesthesia and Seldinger technique, a a 6-[place]ian sheath was introduced in the right radial artery. Selective right and left coronary angiography were performed using 5- [place] 3.5 bend right and left Tiffanie catheter. Multiple views of the coronary artery including hemiaxial views were obtained. Following that, a 5-[place]ian tight pigtail catheter was introduced in the left ventricle and a 30 degree HILL view of the left ventricle was obtained. Following that, catheter and sheaths were removed. Hemostasis was obtained with deployment of a TR band. There was no immediate complication. Patient is returned to her room in stable condition. Of note, patient received 4000 units of intravenous heparin as well as intra-arterial verapamil. FINDINGS: LEFT MAIN: This is a large-sized vessel, trifurcating into left circumflex, left descending artery and ramus intermedius. Left main coronary artery has no evidence of high-grade stenosis. LEFT ANTERIOR DESCENDING ARTERY: This is a large-sized vessel, reaching toward the apex with a wraparound apex segment, giving rise to a large proximal diagonal branch. The left anterior descending artery as well as branches have no evidence of obstructive coronary artery disease. RAMUS INTERMEDIUS: This is a large-sized vessel, reaching toward the apicolateral wall that has no evidence of high-grade stenosis. LEFT CIRCUMFLEX: This is a nondominant vessel, moderate in caliber, giving rise to one obtuse marginal branch of moderate caliber. The left circumflex and its branches have no evidence of obstructive coronary artery disease. RIGHT CORONARY ARTERY: This is a large dominant vessel, bifurcating distally into PDA and posterolateral segment and branches. The right coronary artery as well as branches have no evidence of obstructive coronary artery disease. LEFT VENTRICULOGRAM: Left ventriculogram is performed in 30 degree HILL view and revealed normal left ventricular size and systolic function. Ejection fraction is 60%. There was no significant mitral regurgitation. HEMODYNAMICS: There was no gradient across gradient across the aortic valve the ventricle end- diastolic pressure was 12 to 14 mmHg. CONCLUSION: 1. Normal coronary arteries. 2. Normal left ventricular size and systolic function. RECOMMENDATION: In view of finding anatomy, I would recommend continue medical therapy with aggressive coronary risk modifications being initiated. Those findings and recommendation were discussed with the patient and her family who are in full understanding and agreement. Duration of procedure is 19 minutes. MMODL / IJN: [id number] /
[2018-04-03 12:01] VITALS: BP 149/88; PULSE 66
== END | disposition home or self-care (01) ==
LOC: CATHCVL 06:24
PROVIDERS: ATTEND Internal Medicine Interventional Cardiology
DX: I10 Essential (primary) hypertension (principal); R94.39 Abnormal result of other cardiovascular function study; K21.9 Gastro-esophageal reflux disease without esophagitis; Z82.49 Family history of ischemic heart disease and other diseases of the circulatory system; Z72.0 Tobacco use; Z79.82 Long term (current) use of aspirin; Z79.899 Other long term (current) drug therapy; I49.1 Atrial premature depolarization
CPT/HCPCS: 93458; C1894; C1769 ×2; J2250; J2001; J3010; J1644; Q9967

== ENCOUNTER → 2018-12-10 | Outpatient (CLI) | payer MEDICARE ==
[2018-12-10 23:44] LABS: African American GFR (CKD) 62.9 (60.0-200.0); Anion Gap 9.4 mmol/L (4.00-12.00); Carbon Dioxide 30.6 mmol/L (21.6-31.8); Potassium 4.4 mmol/L (3.5-5.5)
== END | disposition home or self-care (01) ==
LOC: LABWHC1 15:05
PROVIDERS: ATTEND Internal Medicine Interventional Cardiology
DX: I10 Essential (primary) hypertension (principal)
CPT/HCPCS: 36415; 80051; 82565; 84520

== ENCOUNTER → 2019-01-14 | Outpatient (CLI) | payer MEDICARE ==
[2019-01-15 01:41] LABS: African American GFR (CKD) 96.9 (60.0-200.0); Anion Gap 9.6 mmol/L (4.00-12.00); BUN/Creat Ratio 35.71 Ratio (12.00-20.00); Carbon Dioxide 27.4 mmol/L (21.6-31.8)
== END | disposition home or self-care (01) ==
LOC: LABWHC1 15:26
PROVIDERS: ATTEND Nurse Practitioner Adult Health
DX: I10 Essential (primary) hypertension (principal)
CPT/HCPCS: 36415; 80048

== ENCOUNTER → 2019-04-06 | Outpatient (CLI) | payer MEDICARE ==
--- NOTE | 2019-04-12 10:02 | MM ---
Reason for exam: screening (asymptomatic). Last mammogram was performed 1 year and 2 months ago. History: Patient is postmenopausal and has history of other cancer at age 74. Took estrogen for 5 years beginning at age 71. Physical Findings: A clinical breast exam by your physician is recommended on an annual basis and results should be correlated with mammographic findings. MG 3D Screening Mammo W/Cad Bilateral CC and MLO view(s) were taken. Prior study comparison: February 13, 2018, bilateral MG 3d screening mammo w/cad. February 06, 2017, bilateral MG 3d screening mammo w/cad. There are scattered fibroglandular densities. Small benign oil cyst calcifications. No significant changes when compared with prior studies. ASSESSMENT: Benign, BI-RAD 2 RECOMMENDATION: Routine screening mammogram of both breasts in 1 year.
== END | disposition home or self-care (01) ==
LOC: RADMAMWWP 10:23
PROVIDERS: ATTEND Internal Medicine
DX: Z12.31 Encounter for screening mammogram for malignant neoplasm of breast (principal)
CPT/HCPCS: 77063; 77067

== ENCOUNTER → 2019-10-09 | Outpatient (CLI) | payer MEDICARE ==
[2019-10-09 15:28] LABS: HCT 45.5 % (34.0-46.0); HGB 14.5 gm/dL (11.4-16.0); MCH 30.3 pg (25.0-35.0); MCHC 31.8 g/dL (31.0-37.0); MCV 95.3 fL (80.0-100.0); Mean Platelet Volume 7.4; Platelet Count 217 k/uL (150-450); RBC 4.78 m/uL (3.80-5.40); RDW 13.4 % (11.5-15.5)
[2019-10-09 16:23] LABS: Erythrocyte Sedimentation Rate 8 mm/hr (0-20)
[2019-10-09 23:57] LABS: African American GFR (CKD) 62.5 (60.0-200.0); Albumin 4.6 g/dL (3.80-4.90); Albumin/Globulin Ratio 2.19 (1.60-3.17); Anion Gap 6.8 mmol/L (4.00-12.00); Calcium 9.1 mg/dL (8.7-10.3); Carbon Dioxide 28.2 mmol/L (21.6-31.8); Globulin 2.1 g/dL (1.6-3.3); Non-African American GFR(CKD) 53.9 (60.0-200.0); Total Bilirubin 0.5 mg/dL (0.3-1.2); Total Protein 6.7 g/dL (6.2-8.2)
[2019-10-10 00:04] LABS: T4, Free (Free Thyroxine) 1.2 ng/dL (0.80-1.80)
[2019-10-11 21:42] LABS: Cyclic Citrullinated Pep IgG NEGATIVE (NEGATIVE)
== END | disposition home or self-care (01) ==
LOC: LABWHC1 14:46
PROVIDERS: ATTEND Internal Medicine
DX: M25.50 Pain in unspecified joint (principal); R53.83 Other fatigue
CPT/HCPCS: 36415; 80053; 82785; 84439; 84443; 85027; 85652; 86038; 86200; 86431

== ENCOUNTER 2019-10-21 17:44 | Emergency (ER) | payer MEDICARE ==
[2019-10-21 17:52] VITALS: BP 123/87; RESP 16; TEMP 98
[2019-10-21 19:02] VITALS: PULSE 82
[2019-10-21] MEDS ORDERED: SODIUM CHLORIDE 0.9% 500 ML 500 ML IV STA (19:15)
--- NOTE | 2019-10-21 19:40 | ED ---
Weakness HPI - General Chief complaint: Weakness Stated complaint: weakness/trouble sleeping/throat drainage Time Seen by Provider: 10/21/19 18:58 Source: patient Mode of arrival: wheelchair Limitations: no limitations - History of Present Illness Initial comments: 79-year-old female patient presents to the emergency department today for evaluation of generalized weakness and fatigue. Patient states that she has had insomnia for the last couple of years, worsening over the last year. States that she did see her primary care physician about a week ago was prescribed Ambien. States she did take a for a few nights and seems to have made her symptoms worse. States she has not taken for the last 2 days but she is feeling more weak and fatigued. Patient states that she does have a history of depression. States the symptoms are not worse. Denies any chest pain, shortness of breath, abdominal pain, nausea, or vomiting. She denies any focal weakness to her extremities. Denies numbness or tingling. She denies any dizziness. Denies hematuria, dysuria, urinary frequency, urinary urgency. - Related Data Home Medications Medication Instructions Recorded Confirmed Lisinopril [Zestril] 20 mg PO DAILY 09/20/15 04/03/18 Vilazodone HCl [Viibryd] 40 mg PO DAILY 09/18/17 04/03/18 Amitriptyline HCl [Elavil] 10 mg PO HS 03/29/18 04/03/18 Aspirin [Adult Low Dose Aspirin EC] 81 mg PO DAILY 03/29/18 04/03/18 Calcium Carbonate [Calcium] 600 mg PO DAILY 03/29/18 04/03/18 Instaflex 1 tab PO DAILY 03/29/18 04/03/18 Magnesium 200 mg PO DAILY 03/29/18 04/03/18 Vit C/E/Zn/Coppr/Lutein/Zeaxan 1 each PO BID 03/29/18 04/03/18 [Preservision Areds 2 Softgel] Previous Rx's Medication Instructions Recorded Dicyclomine [Bentyl] 10 mg PO TID PRN #20 capsule 10/08/17 Allergies Allergy/AdvReac Type Severity Reaction Status Date / Time No Known Allergies Allergy Verified 03/29/18 11:45 Review of Systems ROS Statement: Those systems with pertinent positive or pertinent negative responses have been documented in the HPI. ROS Other: All systems not noted in ROS Statement are negative. Past Medical History Past Medical History: GERD/Reflux, Hypertension, Pneumonia Additional Past Medical History / Comment(s): "leaky heart valve,irregular heart beat". hiatal hernia, hx kindey stones History of Any Multi-Drug Resistant Organisms: None Reported Past Surgical History: Cholecystectomy, Orthopedic Surgery, Tonsillectomy Additional Past Surgical History / Comment(s): cataract extraction, reconstructive facial surgery, rt carpal tunnel, rt bunionectomy Past Anesthesia/Blood Transfusion Reactions: No Reported Reaction Past Psychological History: Depression Smoking Status: Never smoker Past Alcohol Use History: None Reported Past Drug Use History: None Reported - Past Family History Mother Family Medical History: Cancer General Exam Limitations: no limitations General appearance: alert, in no apparent distress, other (This is a well- developed, well-nourished adult female patient in no acute distress. Vital signs upon presentation are temperature 98.0F, pulse 83, respirations 16, blood pressure 123/87, pulse ox 97% on room air.) Eye exam: Present: normal appearance, PERRL, EOMI. Absent: scleral icterus, conjunctival injection, nystagmus, periorbital swelling Respiratory exam: Present: normal lung sounds bilaterally. Absent: respiratory distress, wheezes, rales, rhonchi, stridor Cardiovascular Exam: Present: regular rate, normal rhythm, normal heart sounds. Absent: systolic murmur, diastolic murmur, rubs, gallop, clicks GI/Abdominal exam: Present: soft, normal bowel sounds. Absent: distended, tenderness, guarding, rebound, rigid Neurological exam: Present: alert, oriented X3, CN II-XII intact Psychiatric exam: Present: normal affect, normal mood Skin exam: Present: warm, dry, intact, normal color. Absent: rash Course Vital Signs 10/21/19 10/21/19 17:49 18:48 Temperature 98.0 F Pulse Rate 83 Pulse Rate [ 82 Pulse Oximetery ] Respiratory 16 Rate Blood Pressure 123/87 O2 Sat by Pulse 97 Oximetry Medical Decision Making - Medical Decision Making 79-year-old female patient presented to the emergency department today for evaluation of increased weakness, fatigue, insomnia. Patient believes this may be related to her medications as symptoms started a couple of years ago after she started taking Effexor. Physical examination is unremarkable. She is neurologically intact with no focal deficits. She did see her primary care phys izzy about a week ago and was started on Ambien but she states this made her symptoms worse. Labs are reviewed and are unremarkable. Urinalysis shows no signs of infection. Chest x-ray did show increased infiltrate the right lung base did show that it could be possibly subsegmental atelectasis. Since patient has no cough, congestion, or fever atelectasis is most likely. She will be discharged to follow-up with her primary care physician for recheck in 1-2 days. She does have an appointment with her rock breaker at the end of this week. Return parameters were discussed in detail. She verbalizes understanding and agrees with this plan. - Lab Data Result diagrams: 10/21/19 19:34 10/21/19 19:34 Lab Results 10/21/19 10/21/19 10/21/19 Range/Units 19:34 19:34 19:34 WBC 5.2 (3.8-10.6) k/uL RBC 4.58 (3.80-5.40) m/uL Hgb 14.7 (11.4-16.0) gm/dL Hct 43.2 (34.0-46.0) % MCV 94.3 (80.0-100.0) fL MCH 32.1 (25.0-35.0) pg MCHC 34.1 (31.0-37.0) g/dL RDW 13.2 (11.5-15.5) % Plt Count 210 (150-450) k/uL Neutrophils % 59 % Lymphocytes % 31 % Monocytes % 6 % Eosinophils % 2 % Basophils % 0 % Neutrophils # 3.1 (1.3-7.7) k/uL Lymphocytes # 1.6 (1.0-4.8) k/uL Monocytes # 0.3 (0-1.0) k/uL Eosinophils # 0.1 (0-0.7) k/uL Basophils # 0.0 (0-0.2) k/uL PT 10.3 (9.0-12.0) sec INR 1.0 (<1.2) APTT 23.6 (22.0-30.0) sec Sodium 136 L (137-145) mmol/L Potassium 4.5 (3.5-5.1) mmol/L Chloride 103 (98-107) mmol/L Carbon Dioxide 26 (22-30) mmol/L Anion Gap 7 mmol/L BUN 14 (7-17) mg/dL Creatinine 0.61 (0.52-1.04) mg/dL Est GFR (CKD-EPI)AfAm >90 (>60 ml/min/1.73 sqM) Est GFR (CKD-EPI)NonAf 87 (>60 ml/min/1.73 sqM) Glucose 94 (74-99) mg/dL Plasma Lactic Acid [place] (0.7-2.0) mmol/L Calcium 9.2 (8.4-10.2) mg/dL Magnesium 2.3 (1.6-2.3) mg/dL Total Bilirubin 0.5 (0.2-1.3) mg/dL AST 41 H (14-36) U/L ALT 50 H (4-34) U/L Alkaline Phosphatase 79 (38-126) U/L Troponin I (0.000-0.034) ng/mL Total Protein 6.6 (6.3-8.2) g/dL Albumin 4.2 (3.5-5.0) g/dL TSH 1.610 (0.465-4.680) mIU/L Urine Color Urine Appearance (Clear) Urine pH (5.0-8.0) Ur Specific [place] (1.001-1.035) Urine Protein (Negative) Urine Glucose (UA) (Negative) Urine Ketones (Negative) Urine Blood (Negative) Urine Nitrite (Negative) Urine Bilirubin (Negative) Urine Urobilinogen (<2.0) mg/dL Ur Leukocyte Esterase (Negative) 10/21/19 10/21/19 10/21/19 Range/Units 19:34 19:34 20:02 WBC (3.8-10.6) k/uL RBC (3.80-5.40) m/uL Hgb (11.4-16.0) gm/dL Hct (34.0-46.0) % MCV (80.0-100.0) fL MCH (25.0-35.0) pg MCHC (31.0-37.0) g/dL RDW (11.5-15.5) % Plt Count (150-450) k/uL Neutrophils % % Lymphocytes % % Monocytes % % Eosinophils % % Basophils % % Neutrophils # (1.3-7.7) k/uL Lymphocytes # (1.0-4.8) k/uL Monocytes # (0-1.0) k/uL Eosinophils # (0-0.7) k/uL Basophils # (0-0.2) k/uL PT (9.0-12.0) sec INR (<1.2) APTT (22.0-30.0) sec Sodium (137-145) mmol/L Potassium (3.5-5.1) mmol/L Chloride (98-107) mmol/L Carbon Dioxide (22-30) mmol/L Anion Gap mmol/L BUN (7-17) mg/dL Creatinine (0.52-1.04) mg/dL Est GFR (CKD-EPI)AfAm (>60 ml/min/1.73 sqM) Est GFR (CKD-EPI)NonAf (>60 ml/min/1.73 sqM) Glucose (74-99) mg/dL Plasma Lactic Acid [place] 1.3 (0.7-2.0) mmol/L Calcium (8.4-10.2) mg/dL Magnesium (1.6-2.3) mg/dL Total Bilirubin (0.2-1.3) mg/dL AST (14-36) U/L ALT (4-34) U/L Alkaline Phosphatase (38-126) U/L Troponin I <0.012 (0.000-0.034) ng/mL Total Protein (6.3-8.2) g/dL Albumin (3.5-5.0) g/dL TSH (0.465-4.680) mIU/L Urine Color Yellow Urine Appearance Clear (Clear) Urine pH 8.0 (5.0-8.0) Ur Specific [place] 1.011 (1.001-1.035) Urine Protein Negative (Negative) Urine Glucose (UA) Negative (Negative) Urine Ketones 1+ H (Negative) Urine Blood Negative (Negative) Urine Nitrite Negative (Negative) Urine Bilirubin Negative (Negative) Urine Urobilinogen <2.0 (<2.0) mg/dL Ur Leukocyte Esterase Negative (Negative) - Radiology Data Radiology results: report reviewed, image reviewed Two-view x-ray of the chest is obtained. Report is reviewed in its entirety. Impression by Dr. Hernandez shows minimal increased infiltrate the right lung ba se. Body of the report reads that this could be subsegmental atelectasis per Disposition Clinical Impression: Weakness, Fatigue, Insomnia Disposition: HOME SELF-CARE Condition: Good Instructions (If sedation given, give patient instructions): Weakness (ED), Insomnia (ED), Fatigue (ED) Additional Instructions: Follow-up with Dr. Fox in 1-2 days. Discuss weaning you from your effexor and trying a different medication. Discuss seroquel as a possibility. Also, discuss a home sleep study. Return to the emergency department immediately for any new, worsening, or concerning symptoms. Is patient prescribed a controlled substance at d/c from ED?: No Referrals: Mell Fox MD [Primary Care Provider] - 1-2 days Time of Disposition: 20:55
[2019-10-21 19:55] LABS: Basophils % (A) 0 %; Eosinophils # (A) 0.1 k/uL (0-0.7); Eosinophils % (A) 2 %; HCT 43.2 % (34.0-46.0); HGB 14.7 gm/dL (11.4-16.0); Lymphocytes # (A) 1.6 k/uL (1.0-4.8); Lymphocytes % (A) 31 %; MCH 32.1 pg (25.0-35.0); MCHC 34.1 g/dL (31.0-37.0); MCV 94.3 fL (80.0-100.0); Mean Platelet Volume 7.3; Monocytes # (A) 0.3 k/uL (0-1.0); Monocytes % (A) 6 %; Neutrophils # (A) 3.1 k/uL (1.3-7.7); Neutrophils % (A) 59 %; Platelet Count 210 k/uL (150-450); RBC 4.58 m/uL (3.80-5.40); RDW 13.2 % (11.5-15.5); WBC 5.2 k/uL (3.8-10.6)
[2019-10-21 20:04] LABS: ALT 50 U/L (4-34); AST 41 U/L (14-36); African American GFR (CKD) >90 (>60 ml/min/1.73 sqM); Albumin 4.2 g/dL (3.5-5.0); Alkaline Phosphatase 79 U/L (38-126); Anion Gap 7 mmol/L; Blood Urea Nitrogen 14 mg/dL (7-17); Calcium 9.2 mg/dL (8.4-10.2); Carbon Dioxide 26 mmol/L (22-30); Chloride 103 mmol/L (98-107); Glucose 94 mg/dL (74-99); Magnesium 2.3 mg/dL (1.6-2.3); Non-African American GFR(CKD) 87 (>60 ml/min/1.73 sqM); Potassium 4.5 mmol/L (3.5-5.1); Sodium 136 mmol/L (137-145); Total Bilirubin 0.5 mg/dL (0.2-1.3); Total Protein 6.6 g/dL (6.3-8.2)
[2019-10-21 20:08] LABS: Partial Thromboplastin Time 23.6 sec (22.0-30.0); Prothrombin Time 10.3 sec (9.0-12.0)
--- NOTE | 2019-10-21 20:15 | XR ---
EXAMINATION TYPE: XR chest 2V DATE OF EXAM: 10/21/2019 COMPARISON: 02/25/2013 INDICATION: Weakness fatigue not sleeping TECHNIQUE: Frontal and lateral views of the chest are obtained. FINDINGS: The heart size is normal. The pulmonary vasculature is normal. There is subtle increased lung markings at the right base. Subsegmental atelectasis or early pneumoni a could be considered. Follow-up can be performed as clinically indicated. IMPRESSION: 1. Minimal increased infiltrate at the right lung base. Follow-up as clinically indicated
[2019-10-21 20:26] LABS: Appearance,Urine Clear (Clear); Bilirubin,Urine Negative (Negative); Blood,Urine Negative (Negative); Color,Urine Yellow; Glucose,Urine (UA) Negative (Negative); Ketones,Urine 1+ (Negative); Leukocyte Esterase,Urine Negative (Negative); Nitrite,Urine Negative (Negative); Protein,Urine Negative (Negative); Specific Gravity,Urine 1.011 (1.001-1.035); Urobilinogen,Urine <2.0 mg/dL (<2.0)
[2019-10-22 14:53] LABS: Hepatitis A Antibody IgM NEGATIVE
[2019-10-22 20:26] LABS: Hepatitis B Core IgM Non-Reactive (Non-Reactive); Hepatitis B Surface Antigen Non-Reactive (Non-Reactive); Hepatitis C IgG Antibody Non-Reactive (Non-Reactive)
== END 2019-10-21 21:04 | disposition home or self-care (01) ==
LOC: EC 17:44
DX: R53.1 Weakness (principal); R53.83 Other fatigue; G47.00 Insomnia, unspecified; R91.8 Other nonspecific abnormal finding of lung field; F32.9 Major depressive disorder, single episode, unspecified; I10 Essential (primary) hypertension; Z79.899 Other long term (current) drug therapy; Z79.82 Long term (current) use of aspirin
CPT/HCPCS: 36415; 71046; 80053; 80074; 81003; 83605; 83735; 84443; 84484; 85025; 85610; 85730; 93005; 99285

== ENCOUNTER → 2020-03-06 | Outpatient (CLI) | payer MEDICARE ==
[2020-03-06 12:10] LABS: Basophils % (A) 0 %; Eosinophils # (A) 0.1 k/uL (0-0.7); Eosinophils % (A) 3 %; HCT 46.1 % (34.0-46.0); HGB 14.6 gm/dL (11.4-16.0); Lymphocytes # (A) 1.5 k/uL (1.0-4.8); Lymphocytes % (A) 33 %; MCH 29.7 pg (25.0-35.0); MCHC 31.6 g/dL (31.0-37.0); MCV 94.2 fL (80.0-100.0); Mean Platelet Volume 6.7; Monocytes # (A) 0.3 k/uL (0-1.0); Monocytes % (A) 6 %; Neutrophils # (A) 2.6 k/uL (1.3-7.7); Neutrophils % (A) 57 %; Platelet Count 230 k/uL (150-450); RDW 13.8 % (11.5-15.5); WBC 4.6 k/uL (3.8-10.6)
[2020-03-06 19:39] LABS: Anion Gap 7.3 mmol/L (4.00-12.00); Carbon Dioxide 28.7 mmol/L (21.6-31.8); Potassium 4.8 mmol/L (3.5-5.5)
[2020-03-06 19:57] LABS: INR 0.95 (0.90-1.11); Prothrombin Time 10.5 sec (9.9-11.9)
== END | disposition home or self-care (01) ==
LOC: LABWHC1 11:18
PROVIDERS: ATTEND Orthopaedic Surgery
DX: Z01.818 Encounter for other preprocedural examination (principal); M16.12 Unilateral primary osteoarthritis, left hip
CPT/HCPCS: 36415; 80051; 85025; 85610; 87070

== ENCOUNTER 2020-03-16 11:02 | Day surgery (SDC) | payer MEDICARE ==
[2020-03-06 09:58] VITALS: BMI 27.2
--- NOTE | 2020-03-15 10:50 | HP ---
HISTORY AND PHYSICAL REASON FOR ADMISSION: Surgery is scheduled for 03/16/2020 HISTORY OF PRESENT ILLNESS: Karo Bae is a 79-year-old patient seen with symptomatic left hip osteoarthritis. We discussed options for treatment. She elected to proceed left total hip arthroplasty. Consent was obtained. Medical clearance was provided by Dr. Fox. PAST MEDICAL HISTORY: Hypertension. SURGICAL HISTORY: Cholecystectomy, carpal tunnel release. MEDICATIONS: Lisinopril. ALLERGIES: None reported. SOCIAL HISTORY: She denies tobacco use. PHYSICAL EXAMINATION: Evaluation of the left hip: There is very limited range of motion. Diffuse tenderness about the hip girdle. Positive hip impingement sign. Straight leg raise negative. Distal neurovascular exam is intact. RADIOGRAPHS: Radiographs of the left hip reveal severe osteoarthritic changes. IMPRESSION: 1. Left hip osteoarthritis. 2. Hypertension. PLAN: Direct anterior left total hip arthroplasty. Surgery is scheduled for 03/16/2020. MMODL / IJN: [id number] /
[~2020-03-16 11:02] MED LIST changes: +ACETAMINOPHEN TAB 500 MG TAB PO PRN; -ALPRAZolam 0.25 MG TAB PO PRN; -ALPRAZolam 0.5 MG TAB PO PRN; -AMITRIPTYLINE HCL 10 MG TAB PO SCH; -ASPIRIN 325 MG TAB PO STA; -ATORVASTATIN 80 MG TAB PO STA; +DEXAMETHASONE SOD PHOSPHATE 4 MG/ML 1 ML VIAL IV ONE; -DICYCLOMINE 10 MG CAP PO PRN; -HEPARIN SODIUM 1,000 UN/ML (10ML VL) IV ONE; -HEPARIN SODIUM 1,000 UN/ML (10ML VL) ONE; +HYDROmorphone 0.5 MG/0.5 ML SYRINGE IVP PRN; -IOPAMIDOL-370 125ML BTL INJ ONE; -LIDOCAINE 1% INJ 10MG/ML (20 ML MDV) ONE; -LIDOCAINE 1% INJ 10MG/ML (20 ML MDV) SQ ONE; -LISINOPRIL 20 MG TAB PO SCH; +MELOXICAM 7.5 MG TAB PO PRN; -MIDAZOLAM 2 MG/2 ML VIAL IVP ONE; -NITROGLYCERIN SL TABS 0.4 MG TAB SUBLINGUAL PRN; -NON-FORMULARY DRUG (Aspirin [Adult Low Dose Aspirin Ec] 81 MG) PO SCH; -NON-FORMULARY DRUG (Calcium Carbonate [Calcium] 600 MG) PO SCH; -NON-FORMULARY DRUG (Magnesium [Magnesium] 200 MG) PO SCH; -NON-FORMULARY DRUG (Vilazodone Hcl [Viibryd] 40 MG) PO SCH; -NON-FORMULARY DRUG (Vit C/E/Zn/Coppr/Lutein/Zeaxan [Preservision Areds 2 Softgel] 1 EACH) PO SCH; +ONDANSETRON 4 MG/2 ML VIAL IVP ONE; -RX INFO: IV CONTRAST WAS GIVEN 1 EACH MISC MISCELLANE PRN; -SODIUM CHLORIDE 0.9% 1,000 ML IV ONE; -SODIUM CHLORIDE 0.9% 1,000 ML IV SCH; -SODIUM CHLORIDE 0.9% 1,000 ML in EMPTY BAG 1 BAG IV ONE; +TRANEXAMIC ACID 1,000 MG in SODIUM CHLORIDE 0.9% 100 ML IVPB PRN; -VERAPAMIL 2.5 MG/ML 2 ML AMP ONE; -VERAPAMIL SYRINGE (5 MG/10 ML) INTRAARTER ONE; -fentaNYL (PF) 50 MCG/ML 2 ML AMP IV ONE; -fentaNYL (PF) 50 MCG/ML 2 ML AMP ONE
[2020-03-16] MEDS: LACTATED RINGERS 1,000 ML IV SCH ×2 (11:57→16:33)
[2020-03-16] MEDS ORDERED: LIDOCAINE 1% (10MG/ML) FOR IV START INTRADERMA ONE (11:57)
[2020-03-16] MEDS ORDERED: TRANEXAMIC ACID 1,000 MG/10 ML VIAL ONE (12:18)
[2020-03-16] MEDS ORDERED: MIDAZOLAM 2 MG/2 ML VIAL ONE (12:18)
[2020-03-16] MEDS ORDERED: PHENYLEPHRINE-0.9% NACL SYG 1 MG/10 ML SYRINGE ONE (12:18)
[2020-03-16] MEDS ORDERED: PROPOFOL 10 MG/ML 20 ML VIAL IV ONE (12:18)
[2020-03-16] MEDS ORDERED: SODIUM CHLORIDE 0.9% 100 ML BAG ONE (12:18)
[2020-03-16] MEDS ORDERED: ceFAZolin 1,000 MG in SODIUM CHLORIDE 0.9% 1,000 ML IRRIGATION ONE (12:20)
[2020-03-16] MEDS: ROPIVACAINE 246.25 MG, EPINEPHrine 0.5 MG, KETOROLAC 30 MG, cloNIDine HCL/PF 80 MCG, WA... MISCELLANE PRN ×10 (12:56→13:29)
[2020-03-16] MEDS ORDERED: LACTATED RINGERS 1,000 ML IV ONE (13:50)
--- NOTE | 2020-03-16 13:53 | XR ---
EXAMINATION TYPE: XR Hip Limited LT DATE OF EXAM: 03/16/2020 COMPARISON: NONE HISTORY: Pain TECHNIQUE: One view submitted. FINDINGS: There is postsurgical change in near anatomic alignment. There is soft tissue edema and emphysema. IMPRESSION: 1. Postoperative change. Appears in near-anatomic alignment.
--- NOTE | 2020-03-16 13:58 | FL ---
EXAMINATION TYPE: FL guidance operating room DATE OF EXAM: 03/16/2020 HISTORY: Fluoroscopy time 18 seconds of fluoroscopy provided. IMPRESSION: 1. Fluoroscopy time.
[2020-03-16] MEDS ORDERED: HYDROmorphone 0.5 MG/0.5 ML SYRINGE IVP PRN ×2 (14:01)
[2020-03-16] MEDS ORDERED: HYDROcodone/APAP 5-325MG 1 EACH TAB PO PRN (14:01)
[2020-03-16] MEDS ORDERED: NALOXONE 0.4 MG/ML 1 ML VIAL IV PRN (14:01)
[2020-03-16] MEDS ORDERED: ONDANSETRON 4 MG/2 ML VIAL IVP PRN (14:01)
[2020-03-16] MEDS ORDERED: HYDROmorphone 0.2 MG/1 ML SYRINGE IVP PRN (14:01)
--- NOTE | 2020-03-16 14:01 | P.OP ---
Date of Procedure: 03/16/20 Preoperative Diagnosis: Left hip osteoarthritis Postoperative Diagnosis: Left hip osteoarthritis Procedure(s) Performed: Direct anterior left total hip arthroplasty Implants: 1. Depuy [place]ail KA size 12 press-fit femoral stem 2. Depuy [place] 52 mm press-fit acetabular shell 3. Depuy [place] neutral acetabular polyethylene liner 36 mm ID 50 mm OD 4. Biolox delta ceramic femoral head +1.5 36 mm Anesthesia: local, spinal Surgeon: Skyler Weaver Milk Route Deliverer #1: Prince Jones Estimated Blood Loss (ml): 125 Pathology: other (Femoral head) Condition: stable Disposition: PACU Indications for Procedure: 79-year-old patient seen with symptomatic left hip osteoarthritis. After treatment options were discussed, she elected to proceed with total hip arthroplasty Operative Findings: See description of procedure Description of Procedure: The patient was taken to the operative suite. Patient underwent a right total anesthetic by the department of anesthesia. Patient was then transferred to the [place] table. Patient was given preoperative IV antibiotics and TXA. Both lower extremities were placed in standard leg spars. The hip was then prepped and draped in the normal sterile orthopedic fashion. A standard anterior incision was made beginning 3 cm lateral and 1 cm distal to the ASIS extending 10 cm. Dissection was then carried down through the subcutaneous soft tissues down to the fascia overlying the tensor fascia angela. An incision was now made through the fascia. Careful dissection was taken down exposing the tensor fascia angela muscle. A Cobra retractor was now placed along the medial femoral neck and a second one along the lateral femoral neck. The venous circumflex vessels were now identified, cauterized and clipped. We identified the anterior hip capsule. An incision was made through the hip capsule along the lateral border. I performed a partial anterior capsulectomy. Retractors were now placed around the femoral neck itself. A femoral neck cut was now made with a sagittal saw. It was completed with an osteotome at the lateral neck area. The femoral head was now removed without difficulty. The extremity was now rotated to 45 of external rotation. It was locked in position. Residual labrum was now debrided out. Serial reaming was performed of the acetabulum while Sanjay BARTLETT assisted holding an anterior retractor for exposure. Once we reached the appropriate size and a trial was position and fit nicely. The appropriate size was now chosen opened and made available. It was introduced into the acetabulum without difficulty. The C-arm/fluoroscopy was now brought into the operative field. We made sure we had a true AP pelvic view. We now under direct C- arm/fluoroscopy introduced into the acetabular component with appropriate version and inclination. I held the cup in appropriate position well Sanjay BARTLETT used a mallet to seat the acetabular component. I noted the component now to be well seated and stable. Acetabular cup introduce her was removed. The C-arm was pulled back. An appropriate liner was introduced and clicked into position. It was felt to be stable. At this point retractors were removed. The extremity was now placed into 120 external rotation with no traction. The leg was now dropped to the ground and adducted. Appropriate retractors were now positioned along the proximal femur. We also placed our femoral look into position. Additional capsular releasing was performed to gain access to the proximal femur. We now used a box osteotome. A canal finder was now utilized. Serial broaching was now performed with the assistance of Sanjay BARTLETT tapping the broaches down with a mallet while held the broach in appropriate rotation and position. This was done until we reached the appropriate size with good overall rotational stability. Appropriate calcar planing was performed. A trial head/neck was placed into position. The hip was now reduced. The C-a rm/fluoroscopy was brought back into the operative field. I obtained an AP pelvis to ascertain leg lengths which seemed reasonably aligned. The trial components appeared stable. The C-arm/fluoroscopy was pulled back. Retractors were repositioned and the hip was dislocated. The leg was again taken down to the ground and adducted. Appropriate retractors were repositioned as well as the femoral hook. All trial components were removed. The femoral implant was opened along with the femoral head. The femoral implant was introduced on the appropriate handle into our pre-broached area. I held the component position well Sanjay BARTLETT used a mallet to seat the femoral component. The femoral component was now noted to be well seated and stable.. The femoral head was introduced with good positioning and fixation noted. Retractors were now removed. The hip was now reduced. There appeared be good positioning of the hip confirmed on intraoperative fluoroscopy. Spot films were obtained to document this. A second gram of TXA was given. The deep and superficial soft tissues were infiltrated with local analgesic. Bipolar cautery had been utilized intermittently through the procedure for hemostasis. The wound was irrigated copiously with pulse lavage mechanical irrigation. The fascia was repaired with Vicryl suture. The subcutaneous soft tissues were repaired in layers with Vicryl suture. The skin was approximated with pernio/Dermabond. Sterile dressings were applied. Patient was then awakened, transferred to a bed and taken to recovery in stable condition. Sanjay BARTLETT assisted with the complex procedure.
[2020-03-16 17:56] LABS: Basophils % (A) 0 %; Eosinophils % (A) 0 %; HCT 43.2 % (34.0-46.0); HGB 13.8 gm/dL (11.4-16.0); Lymphocytes # (A) 0.4 k/uL (1.0-4.8); Lymphocytes % (A) 4 %; MCH 30.3 pg (25.0-35.0); MCHC 31.9 g/dL (31.0-37.0); MCV 95.1 fL (80.0-100.0); Mean Platelet Volume 6.9; Monocytes # (A) 0.1 k/uL (0-1.0); Monocytes % (A) 1 %; Neutrophils # (A) 9.5 k/uL (1.3-7.7); Neutrophils % (A) 94 %; Platelet Count 214 k/uL (150-450); RBC 4.55 m/uL (3.80-5.40); RDW 13.9 % (11.5-15.5); WBC 10.1 k/uL (3.8-10.6)
[2020-03-16 18:05] LABS: African American GFR (CKD) >90 (>60 ml/min/1.73 sqM); Anion Gap 4 mmol/L; Blood Urea Nitrogen 16 mg/dL (7-17); Carbon Dioxide 29 mmol/L (22-30); Chloride 103 mmol/L (98-107); Glucose 131 mg/dL (74-99); Non-African American GFR(CKD) 78 (>60 ml/min/1.73 sqM); Potassium 4.3 mmol/L (3.5-5.1); Sodium 136 mmol/L (137-145)
[2020-03-16 19:57] LABS: Appearance,Urine Clear (Clear); Bilirubin,Urine Negative (Negative); Blood,Urine Negative (Negative); Color,Urine Yellow; Glucose,Urine (UA) Negative (Negative); Ketones,Urine Negative (Negative); Leukocyte Esterase,Urine Negative (Negative); Nitrite,Urine Negative (Negative); PH, Urine 6.5 (5.0-8.0); Protein,Urine Negative (Negative); Specific Gravity,Urine 1.016 (1.001-1.035); Urobilinogen,Urine <2.0 mg/dL (<2.0)
[2020-03-16] MEDS: HYDROcodone/APAP 5-325MG 1 EACH TAB PO PRN (20:49)
[2020-03-16] MEDS ORDERED: SENNOSIDES-DOCUSATE SODIUM 1 EACH TAB PO SCH (21:00)
--- NOTE | 2020-03-16 23:03 | CONS ---
CONSULTATION DATE OF SERVICE: 03/16/2020. REASON FOR CONSULTATION: Advice regarding hypertension and multiple other medical issues requested by Dr. Weaver. HISTORY OF PRESENT ILLNESS: This 79-year-old woman with a past medical history of GERD, hypertension, DJD, leaky heart valve, being followed Dr. Fox in the outpatient setting underwent left total hip joint arthroplasty for severe DJD by Dr. Weaver. Postoperatively, patient had some shaking chills and was feeling cold also. There is no history of any fever. No history of headache, loss of consciousness or seizures at this time. PAST MEDICAL HISTORY: History of DJD, GERD, hypertension, history of leaky valve, cholecystectomy. MEDICATIONS: Medications are: Lisinopril 20 mg daily, vitamin C, zinc 1 p.o. daily, magnesium 200 mg daily, Claritin 10 mg, aspirin 81 mg daily. ALLERGIES: None. FAMILY HISTORY: History of cancer in the family. SOCIAL HISTORY: No history of smoking. Occasional alcohol intake. REVIEW OF SYSTEMS: ENT: No diminished hearing or diminished vision. CARDIOVASCULAR SYSTEM: No angina. RESPIRATORY SYSTEM: No cough or hemoptysis. GI: No nausea or vomiting. : No dysuria. NERVOUS SYSTEM: No numbness or weakness. ALLERGY/IMMUNOLOGY: No asthma or hayfever. MUSCULOSKELETAL: As mentioned earlier. HEMATOLOGY/ONCOLOGY: No history of anemia. ENDOCRINE: No history of diabetes mellitus or hypothyroidism. CONSTITUTIONAL: As mentioned earlier. DERMATOLOGY: Negative. RHEUMATOLOGY: Negative. PSYCHIATRY: As mentioned earlier. PHYSICAL EXAMINATION: Patient is alert and oriented x3. The pulse is 67, blood pressure is 118/70, respirations 16, temperature 97.6, pulse ox 99% on room air. HEENT: Conjunctivae normal. NECK: No jugular venous distention. CARDIOVASCULAR: S1, S2 muffled. RESPIRATORY: Breath sounds diminished at the bases. No rhonchi, no crackles. ABDOMEN: Soft, nontender. LEGS: Status post surgery. NERVOUS SYSTEM: Higher function as mentioned earlier. Moves all 4 limbs. No focal motor or sensory deficits. LYMPHATICS: No lymphadenopathy of the neck, axillae or groin. SKIN: No ulcer, rash or bleeding. JOINTS: No active deforming arthropathy. LAB: The preop labs hematology is within normal limits. Coags are normal. Chemistry also acceptable. Urine noted. Rheumatoid factor was elevated. ASSESSMENT: 1. Status post left hip arthroplasty for severe left degenerative joint disease. 2. Hypertension. 3. Degenerative joint disease. 4. History of leaky valve. 5. Cholecystectomy. 6. History of cataracts extraction. 7. History of depression. 8. FULL CODE. RECOMMENDATIONS AND DISCUSSION: This 79-year-old woman who was admitted after surgery at this time I recommend to continue the current medications. Continue symptomatic treatment. The patient had symptoms of some chills after the surgery. I would recommend CBC, BMP, and UA with micro and continue to monitor. Otherwise, DVT prophylaxis. Resume the home medications. The patient may be asked to follow up with Dr. Fox after discharge and we will follow the patient closely. Thank you Dr. Weaver for letting us participate in the care of this patient. MMCHAYAL / CASEYN: [id number] /
[2020-03-16] MEDS ORDERED: CALCIUM CARBONATE 500 MG CHEWABLE PO PRN (23:31)
[2020-03-17] MEDS: HYDROcodone/APAP 5-325MG 1 EACH TAB PO PRN ×2 (04:05→10:32)
[2020-03-17 04:47] VITALS: TEMP 98.1
[2020-03-17] MEDS: LACTATED RINGERS 1,000 ML IV SCH ×2 (05:11→09:13)
[2020-03-17 06:34] LABS: Basophils % (A) 0 %; Eosinophils % (A) 0 %; HGB 12.7 gm/dL (11.4-16.0); Lymphocytes # (A) 1.1 k/uL (1.0-4.8); Lymphocytes % (A) 11 %; MCH 31.3 pg (25.0-35.0); MCHC 33.3 g/dL (31.0-37.0); MCV 93.7 fL (80.0-100.0); Mean Platelet Volume 6.7; Monocytes # (A) 0.6 k/uL (0-1.0); Monocytes % (A) 6 %; Neutrophils % (A) 82 %; Platelet Count 186 k/uL (150-450); RBC 4.06 m/uL (3.80-5.40); RDW 13.3 % (11.5-15.5); WBC 9.8 k/uL (3.8-10.6)
[2020-03-17 08:13] VITALS: BP 113/74; PULSE 55; RESP 16
[2020-03-17] MEDS ORDERED: ENOXAPARIN 40 MG/0.4 ML SYRINGE SQ SCH (09:00)
[2020-03-17] MEDS ORDERED: LORATADINE 10 MG TAB PO SCH (09:00)
[2020-03-17] MEDS ORDERED: lisinopriL 20 MG TAB PO SCH (09:00)
[2020-03-17] MEDS ORDERED: ASPIRIN 81 MG PO SCH (09:00)
[2020-03-17] MEDS ORDERED: MAGNESIUM OXIDE 400 MG TAB PO SCH (09:00)
--- NOTE | 2020-03-17 10:38 | P.PN ---
Subjective Progress Note Date: 03/17/20 Principal diagnosis: Status post direct anterior left total hip arthroplasty Patient evaluated today at bedside, she is resting comfortably. Her pain is well-controlled. She denies any headaches, lightheadedness, chest pain or shortness of breath. Objective - Vital Signs Vital signs: Vital Signs Temp 98.1 F 03/17/20 08:00 Pulse 55 L 03/17/20 08:00 Resp 16 03/17/20 08:15 BP 113/74 03/17/20 08:00 Pulse Ox 97 03/17/20 08:00 Intake & Output 03/16/20 03/17/20 03/17/20 18:59 06:59 18:59 Intake Total 1151 Output Total 125 1600 Balance 1026 -1600 Weight 86.5 kg Intake: IV 1051 Oral 100 Output: Urine 1600 Estimated Blood Loss 125 Other: Voiding Method Toilet Toilet # Voids 1 - Exam Left lower extremity: Incision is clean, dry, and intact. The foam dressing is in good condition. There is minimal soft tissue swelling and ecchymosis surrounding the medial and lateral aspects of the incision. Calf is soft, no tenderness with palpation. Plantar flexion, dorsiflexion, EHL, FHL are intact. Sensory exam to light touch throughout the extremity is intact, dorsal pedis pulses 2+. - Labs CBC & Chem 7: 03/17/20 06:03 03/16/20 17:10 Labs: Abnormal Lab Results - Last 24 Hours (Table) 03/16/20 03/16/20 03/17/20 Range/Units 17:10 17:10 06:03 Neutrophils # 9.5 H 8.0 H (1.3-7.7) k/uL Lymphocytes # 0.4 L (1.0-4.8) k/uL Sodium 136 L (137-145) mmol/L Glucose 131 H (74-99) mg/dL Assessment and Plan Assessment: Status post direct anterior left total hip arthroplasty Plan: Pain control, plan for discharge home on oral medication DVT prophylaxis, aspirin 81 mg twice a day Wound care instructions discussed Home health care discharge Medical recommendations Plan for discharge home today Time with Patient: Less than 30
--- NOTE | 2020-03-17 10:39 | P.DS ---
Providers Date of admission: 03/16/2020 Expected date of discharge: 03/17/20 Attending physician: Skyler Weaver Consults: 03/16/20 14:01 Consult Physician Routine Consulting Provider: Karl Monterroso Consult Reason/Comments: Medical management Do you want consulting provider notified?: Yes Primary care physician: Ruddy Monte [facility] Course: Date of admission: 03/16/2020 Date of discharge: 03/17/2020 Admission diagnosis: Status post direct anterior left total hip arthroplasty Discharge diagnosis: Same Attending physician: Dr. Weaver Surgical procedures: Direct anterior left total hip arthroplasty Brief history: Patient is a 79-year-old female with a history of progressive primary left hip osteoarthritis. At this point patient has failed conservative treatment measures and has opted to proceed with a elective direct anterior left total hip arthroplasty. Hospital course: Details of patient's surgery can be found in operative report. Patient tolerated the procedure well and was subsequently transported to orthopedic floor. Patient's orthopeidc and medical care was provided daily. Patient had daily laboratory tests performed for evaluation of overall blood counts. Patient had daily physical therapy to include strengthening range of motion as well as education with walker ambulation. Patient was treated with Lovenox for their postoperative DVT prophylaxis during their inpatient stay. Patient was noted to have a relatively uneventful postoperative course. Patient reported satisfactory pain control with oral pain medications by postoperative day 0. Patient showed satisfactory progress with physical therapy. Patient moved steadily through the program and had no difficulty meeting the goals by postoperative day 1. Given patient's otherwise satisfactory course and having met physical therapy goals, plan is to discharge patient home on postoperative day 1. Discharge condition/disposition: Patient will be discharged home in stable con dition. Discharge medications: Instructions are given on resumption of patient's normal daily medications per primary care recommendation, in addition patient will be prescribed [place] 5 mg/325 mg, Colace 100 mg, aspirin 81 mg. Discharge instructions: 1. Wound care and infection precautions, keep incision dry and covered while showering, no lotions, creams, moisturizers. No soaking, tubs, pools, hottubs. Do not scrub over the incision. Okay to remove foam dressing on 03/26/2020 2. Weight-bear as tolerated with walker / cane until follow-up. 3. Ice and elevate when necessary. Do not exceed 20 minutes per hour with ice pack. 4. Utilize compression sleeve until seen at first follow up appointment. 5. Visiting nursing care. 6. Home physical therapy. 7. Pain meds and anticoagulants per prescription. 8. Pain medication has potential to cause constipation. Increase oral fluid and fiber intake. Contact primary care provider if you have not had a bowel movement within 48 hours after discharge 9. No anti-inflammatory medication until discussed at first post operative visit, this including Motrin, Aleve, Mobic, Diclofenac. 10. Follow up in office at 2 weeks postop with Sanjay Jones PA-C 11. Follow up with your primary care doctor 7-10 days after discharge. 12. Contact [facility] with any questions, . Procedures: Direct anterior left total hip arthroplasty Patient Condition at Discharge: Good Plan - Discharge Summary Discharge Rx Participant: Yes New Discharge Prescriptions: New Aspirin [Adult Low Dose Aspirin EC] 81 mg PO BID #60 tablet. Docusate [Colace] 100 mg PO DAILY #30 capsule Hydrocodone/Acetaminophen [[place] 5-325] 1 - 2 each PO Q6HR PRN #42 tab PRN Reason: Pain Discontinued Aspirin [Adult Low Dose Aspirin EC] 81 mg PO DAILY No Action lisinopriL [Zestril] 20 mg PO DAILY Vit C/E/Zn/Coppr/Lutein/Zeaxan [Preservision Areds 2 Softgel] 1 each PO BID Magnesium 200 mg PO DAILY Loratadine [Claritin] 10 mg PO DAILY Discharge Medication List lisinopriL [Zestril] 20 mg PO DAILY 09/20/15 [History] Magnesium 200 mg PO DAILY 03/29/18 [History] Vit C/E/Zn/Coppr/Lutein/Zeaxan [Preservision Areds 2 Softgel] 1 each PO BID 03/29/18 [History] Loratadine [Claritin] 10 mg PO DAILY 03/06/20 [History] Aspirin [Adult Low Dose Aspirin EC] 81 mg PO BID #60 tablet. 03/17/20 [Rx] Docusate [Colace] 100 mg PO DAILY #30 capsule 03/17/20 [Rx] Hydrocodone/Acetaminophen [[place] 5-325] 1 - 2 each PO Q6HR PRN #42 tab 03/17/20 [Rx] Follow up Appointment(s)/Referral(s): Jean Carlos Dior [NON-STAFF] - As Needed Prince Jones, PAC [PHYSICIAN [facility]] - 2 Weeks Activity/Diet/Wound Care/Special Instructions: Orthopedic Discharge Instructions: 1. Wound care and infection precautions, keep incision dry and covered while showering, no lotions, creams, moisturizers. No soaking, pools, hot tubs. Do not scrub over incision. Okay to remove foam dressing on 03/26/2020 2. Weight-bear as tolerated with walker / cane until follow-up. 3. Ice and elevate when necessary. Do not exceed 20 minutes per hour with ice pack. 4. Utilize compression sleeve until seen at first follow up appointment. 5. Pain meds and anticoagulants per prescription. 6. Pain medication has potential to cause constipation. Increase oral fluid and fiber intake. Contact primary care provider if you have not had a bowel movement within 48 hours after discharge. 7. No anti-inflammatory medication until discussed at first post operative visit, this including Motrin, Aleve, Mobic, Diclofenac. 8. Follow up in office at 2 weeks postop with Sanjay Jones PA-C 9. Follow up with your primary care doctor 7-10 days after discharge. 10. Contact [facility] with any questions, . Discharge Disposition: HOME WITH HOME HEALTH SERVICES
--- NOTE | 2020-03-17 13:52 | P.PN ---
Subjective Progress Note Date: 03/17/20 This is a 79-year-old female who was recently admitted with Dr. Weaver and underwent left total hip joint arthroplasty for severe degenerative joint disease and is being closely monitored. Patient has a medical history of GERD, hypertension, DJD, leaky heart valve as follows with Dr. Fox in the outpatient setting. Patient home medications have been resumed and patient will continue with 2 baby aspirins daily for the next 2 weeks until follow-up with primary care provider and orthopedic surgery in the outpatient setting. Patient was seen and evaluated by physical therapy and will be going home today. Patient currently denies any chest pain, shortness of breath, or palpitations. Patient is afebrile. No reports of nausea or vomiting and patient is tolerating diet. Patient states she is feeling much better and is anxious to go home today. Review of systems: Constitutional: No reports of fatigue, fever, or chills Cardiovascular: No reports of chest pain or palpitations Respiratory: No reports of shortness of breath or cough GI: No reports of nausea, vomiting, or diarrhea : No reports of dysuria or retention Neurovascular: No reports of weakness or numbness All medications have been reviewed Objective - Vital Signs Vital signs: Vital Signs Temp 98.1 F 03/17/20 08:00 Pulse 55 L 03/17/20 08:00 Resp 16 03/17/20 08:15 BP 113/74 03/17/20 08:00 Pulse Ox 97 03/17/20 08:00 Intake & Output 03/16/20 03/17/20 03/17/20 18:59 06:59 18:59 Intake Total 1151 Output Total 125 1600 Balance 1026 -1600 Weight 86.5 kg Intake: IV 1051 Oral 100 Output: Urine 1600 Estimated Blood Loss 125 Other: Voiding Method Toilet Toilet # Voids 1 - Exam Gen: This is a 79-year-old female, awake, alert and oriented 3, well-developed, well-nourished. Temp is 98.1F, pulse is 55, respirations are 16, blood pr essure is 113/74, oxygen saturation is 97% on room air. HEENT: Head is atraumatic, normocephalic. Pupils equal, round. Sclerae is anicteric. NECK: Supple. No JVD. No lymphadenopathy. No thyromegaly. LUNGS: Diminished breath sounds at the bases with no wheezes or rhonchi. No intercostal retractions. HEART: S1, S2 are muffled. ABDOMEN: Soft. Bowel sounds are present. No masses. No tenderness. EXTREMITIES: No pedal edema. No calf tenderness. NEUROLOGICAL: Patient is awake, alert and oriented x3. Cranial nerves 2 through 12 are grossly intact. - Labs CBC & Chem 7: 03/17/20 06:03 03/16/20 17:10 Labs: Abnormal Lab Results - Last 24 Hours (Table) 03/16/20 03/16/20 03/17/20 Range/Units 17:10 17:10 06:03 Neutrophils # 9.5 H 8.0 H (1.3-7.7) k/uL Lymphocytes # 0.4 L (1.0-4.8) k/uL Sodium 136 L (137-145) mmol/L Glucose 131 H (74-99) mg/dL Assessment and Plan Assessment: Status post left hip arthroplasty for severe left degenerative joint disease Hypertension Degenerative joint disease History of leaking valve Cholecystectomy History of cataracts extraction history of depression Full code Recommendations and discussion: Recommend continue current medications and symptomatic treatment. Continue with current home medications. Patient will be continued on 2 baby aspirin daily until orthopedic and primary care follow-up in the outpatient setting. Discussed with the patient about increasing activity as tolerated. Will continue to follow along with orthopedic surgery during hospitalization. Further recommendations to follow. Patient states she is being discharged today.
== END 2020-03-17 13:20 | disposition home health service (06) ==
LOC: OR 11:02 → 4SSUR 13:53 → OR 03-17 13:20
PROVIDERS: ATTEND Orthopaedic Surgery
DX: M16.12 Unilateral primary osteoarthritis, left hip (principal); I10 Essential (primary) hypertension; F32.9 Major depressive disorder, single episode, unspecified; K21.9 Gastro-esophageal reflux disease without esophagitis; Z98.41 Cataract extraction status, right eye; Z98.42 Cataract extraction status, left eye; Z90.49 Acquired absence of other specified parts of digestive tract; Z79.899 Other long term (current) drug therapy; M19.90 Unspecified osteoarthritis, unspecified site; Z79.82 Long term (current) use of aspirin; Z80.9 Family history of malignant neoplasm, unspecified; Z98.890 Other specified postprocedural states
CPT/HCPCS: 97161; 80048; 85025 ×2; 81003; 88300; 73501; 27130; C1776; J2250; J0171; J1100; J0690 ×3; J2405; J1650; J1885; J2795; J2370; J2704; J0735; J1170; 86850; 86900; 86901

== ENCOUNTER → 2020-04-22 | Outpatient (CLI) | payer MEDICARE ==
--- NOTE | 2020-04-23 15:04 | MM ---
Reason for exam: screening (asymptomatic). Last mammogram was performed 1 year and 1 month ago. History: Patient is postmenopausal and has history of other cancer at age 74. Took estrogen for 5 years beginning at age 71. Physical Findings: A clinical breast exam by your physician is recommended on an annual basis and results should be correlated with mammographic findings. MG 3D Screening Mammo W/Cad Bilateral CC and MLO view(s) were taken. Prior study comparison: April 06, 2019, bilateral MG 3d screening mammo w/cad. February 13, 2018, bilateral MG 3d screening mammo w/cad. There are scattered fibroglandular densities. No significant changes when compared with prior studies. ASSESSMENT: Benign, BI-RAD 2 RECOMMENDATION: Routine screening mammogram of both breasts in 1 year.
== END | disposition home or self-care (01) ==
LOC: RADMAMWWP 11:18
PROVIDERS: ATTEND Internal Medicine
DX: Z12.31 Encounter for screening mammogram for malignant neoplasm of breast (principal)
CPT/HCPCS: 77063; 77067

== ENCOUNTER → 2020-10-16 | Outpatient (CLI) | payer MEDICARE ==
[2020-10-16 13:43] LABS: Basophils % (A) 0 %; Eosinophils # (A) 0.1 k/uL (0-0.7); Eosinophils % (A) 2 %; HCT 43.5 % (34.0-46.0); HGB 14.7 gm/dL (11.4-16.0); Lymphocytes # (A) 1.7 k/uL (1.0-4.8); Lymphocytes % (A) 30 %; MCH 31.6 pg (25.0-35.0); MCHC 33.9 g/dL (31.0-37.0); MCV 93.4 fL (80.0-100.0); Mean Platelet Volume 7.4; Monocytes # (A) 0.3 k/uL (0-1.0); Monocytes % (A) 5 %; Neutrophils # (A) 3.5 k/uL (1.3-7.7); Neutrophils % (A) 62 %; Platelet Count 215 k/uL (150-450); RBC 4.66 m/uL (3.80-5.40); RDW 13.2 % (11.5-15.5); WBC 5.7 k/uL (3.8-10.6)
[2020-10-16 13:47] LABS: Prothrombin Time 10.5 sec (9.0-12.0)
[2020-10-16 13:48] LABS: African American GFR (CKD) >90 (>60 ml/min/1.73 sqM); Anion Gap 7 mmol/L; Blood Urea Nitrogen 18 mg/dL (7-17); Carbon Dioxide 29 mmol/L (22-30); Chloride 103 mmol/L (98-107); Non-African American GFR(CKD) 86 (>60 ml/min/1.73 sqM); Potassium 4.4 mmol/L (3.5-5.1); Sodium 139 mmol/L (137-145)
[2020-10-16 14:05] LABS: T4, Free (Free Thyroxine) 1.27 ng/dL (0.78-2.19)
[2020-10-16 21:40] LABS: Hemoglobin A1C 5.2 % (4.0-6.0)
== END | disposition home or self-care (01) ==
LOC: LABPAT 12:20
PROVIDERS: ATTEND Orthopaedic Surgery
DX: Z01.812 Encounter for preprocedural laboratory examination (principal); G60.9 Hereditary and idiopathic neuropathy, unspecified; M16.11 Unilateral primary osteoarthritis, right hip
CPT/HCPCS: 80051; 82565; 82607; 83036; 84439; 84443; 84520; 85025; 85610; 87070

== ENCOUNTER 2020-10-26 13:38 | Day surgery (SDC) | payer MEDICARE ==
[2020-10-23 11:33] VITALS: BMI 27.2
--- NOTE | 2020-10-25 12:00 | HP ---
HISTORY AND PHYSICAL REASON FOR ADMISSION: Surgery scheduled for 10/26/2020 HISTORY OF PRESENT ILLNESS: Karo Bae is a 80-year-old patient seen with symptomatic right hip osteoarthritis. We discussed options for treatment. She elected to proceed with direct anterior right total hip arthroplasty. Consent was obtained. Medical clearance was provided by Dr. Fox. Cardiac clearance by Dr. Bae. PAST MEDICAL HISTORY: Hypertension, hyperlipidemia. PAST SURGICAL HISTORY: Carpal tunnel release, cholecystectomy. DAILY MEDICATIONS: Lisinopril, [place]. ALLERGIES: None. SOCIAL HISTORY: She currently denies tobacco use. PHYSICAL EXAMINATION: Evaluation of the right hip: There is very limited range of motion with severe pain. Positive hip impingement sign. Straight leg raise negative. Distal neurovascular exam is intact. RADIOGRAPHS: Radiographs of the right hip reveals severe osteoarthritic changes. IMPRESSION: 1. Right hip osteoarthritis. 2. Hypertension. PLAN: Direct anterior right total hip arthroplasty. Surgery is scheduled for 10/26/2020. MMODL / IJN: [id number] /
[~2020-10-26 13:38] MED LIST changes: +ROPIVACAINE/EPI/CLONIDINE/KET 50 ML SYRINGE MISCELLANE PRN
[2020-10-26] MEDS ORDERED: ONDANSETRON 4 MG/2 ML VIAL ONE (13:56)
[2020-10-26] MEDS: LACTATED RINGERS 1,000 ML IV SCH ×2 (14:08→20:42)
[2020-10-26] MEDS ORDERED: TRANEXAMIC ACID 1,000 MG/10 ML VIAL ONE (15:28)
[2020-10-26] MEDS ORDERED: MIDAZOLAM 2 MG/2 ML VIAL ONE (15:28)
[2020-10-26] MEDS ORDERED: fentaNYL (PF) 50 MCG/ML 2 ML AMP ONE (15:28)
[2020-10-26] MEDS ORDERED: SODIUM CHLORIDE 0.9% 100 ML BAG ONE (15:28)
[2020-10-26] MEDS ORDERED: PROPOFOL 10 MG/ML 20 ML VIAL IV ONE (15:28)
[2020-10-26] MEDS ORDERED: NALOXONE 0.4 MG/ML 1 ML VIAL IV PRN (17:06)
[2020-10-26] MEDS ORDERED: HYDROcodone/APAP 5-325MG 1 EACH TAB PO PRN ×2 (17:06)
[2020-10-26] MEDS ORDERED: ONDANSETRON 4 MG/2 ML VIAL IVP PRN (17:06)
[2020-10-26] MEDS ORDERED: HYDROmorphone 0.5 MG/0.5 ML SYRINGE IVP PRN ×2 (17:06)
[2020-10-26] MEDS ORDERED: HYDROmorphone 0.2 MG/1 ML SYRINGE IVP PRN (17:06)
--- NOTE | 2020-10-26 17:06 | P.OP ---
Date of Procedure: 10/26/20 Preoperative Diagnosis: Right hip osteoarthritis Postoperative Diagnosis: Right hip osteoarthritis Procedure(s) Performed: Direct anterior right total hip arthroplasty Implants: 1. Depuy Corail KA size 12 press-fit femoral stem 2. Depuy pinnacle 54 mm press-fit acetabular shell 3. Depuy pinnacle neutral polyethylene acetabular liner 36 mm ID 54 mm OD 4. Biolox delta ceramic femoral head +1.5 36 mm Anesthesia: local, spinal Surgeon: Skyler Weaver [employer] Maker #1: Prince Jones Estimated Blood Loss (ml): 105 Pathology: none sent (Femoral head) Condition: stable Disposition: PACU Indications for Procedure: 80-year-old patient seen with symptomatic right hip osteoarthritis. After treatment options were discussed, she elected to proceed with total hip arthroplasty. Operative Findings: See description of procedure Description of Procedure: The patient was taken to the operative suite. Patient underwent a spinal anesthetic by the department of anesthesia. Patient was then transferred to the [place] table. Patient was given preoperative IV antibiotics and TXA. Both lower extremities were placed in standard leg spars. The hip was then prepped and draped in the normal sterile orthopedic fashion. A standard anterior incision was made beginning 3 cm lateral and 1 cm distal to the ASIS extending 10 cm. Dissection was then carried down through the subcutaneous soft tissues down to the fascia overlying the tensor fascia angela. An incision was now made through the fascia. Careful dissection was taken down exposing the tensor fascia angela muscle. A Cobra retractor was now placed along the medial femoral neck and a second one along the lateral femoral neck. The venous circumflex vessels were now identified, cauterized and clipped. We identified the anterior hip capsule. An incision was made through the hip capsule along the lateral border. I performed a partial anterior capsulectomy. Retractors were now placed around the femoral neck itself. A femoral neck cut was now made with a sagittal saw. It was completed with an osteotome at the lateral neck area. The femoral head was now removed without difficulty. The extremity was now rotated to 60 of external rotation. It was locked in position. Residual labrum was now debrided out. Serial reaming was performed of the acetabulum while Sanjay BARTLETT assisted holding an anterior retractor for exposure. Once we reached the appropriate size and a trial was position and fit nicely. The appropriate size was now chosen opened and made available. It was introduced into the acetabulum without difficulty. The C-arm/fluoroscopy was now brought into the operative field. We made sure we had a true AP pelvic view. We now under direct C- arm/fluoroscopy introduced into the acetabular component with appropriate version and inclination. I held the cup in appropriate position well Sanjay BARTLETT used a mallet to seat the acetabular component. I noted the component now to be well seated and stable. Acetabular cup introduce her was removed. The C-arm was pulled back. An appropriate liner was introduced and clicked into position. It was felt to be stable. At this point retractors were removed. The extremity was now placed into 140 external rotation with no traction. The leg was now dropped to the ground and adducted. Appropriate retractors were now positioned along the proximal femur. We also placed our femoral look into position. Additional capsular releasing was performed to gain access to the proximal femur. We now used a box osteotome. A canal finder was now utilized. Serial broaching was now performed with the assistance of Sanjay BARTLETT tapping the broaches down with a mallet while held the broach in appropriate rotation and position. This was done until we reached the appropriate size with good overall rotational stability. Appropriate calcar planing was performed. A trial head/neck was placed into position. The hip was now reduced. The C- arm/fluoroscopy was brought back into the operative field. I obtained an AP pelvis noting reasonable leg length alignment. The trial components appear to be appropriately sized. The C-arm/fluoroscopy was pulled back. Retractors were repositioned and the hip was dislocated. The leg was again taken down to the ground and adducted. Appropriate retractors were repositioned as well as the femoral hook. All trial components were removed. The femoral implant was opened along with the femoral head. The femoral implant was introduced on the appropriate handle into our pre-broached area. I held the component position well Sanjay BARTLETT used a mallet to seat the femoral component. The femoral component was now noted to be well seated and stable.. The femoral head was introduced with good positioning and fixation noted. Retractors were now removed. The hip was now reduced. There appeared be good positioning of the hip confirmed on intraoperative fluoroscopy. Spot films were obtained to document this. A second gram of TXA was given. The deep and superficial soft tissues were infiltrated with local analgesic. Bipolar cautery had been utilized intermittently through the procedure for hemostasis. The wound was irrigated copiously with pulse lavage mechanical irrigation. The fascia was repaired with Vicryl suture. The subcutaneous soft tissues were repaired in layers with Vicryl suture. The skin was approximated with pernio/Dermabond. Sterile dressings were applied. Patient was then awakened, transferred to a bed and taken to recovery in stable condition. Sanjay BARTLETT assisted with the complex procedure.
[2020-10-26] MEDS ORDERED: SODIUM CHLORIDE 0.9% 1,000 ML IV SCH (17:15)
[2020-10-26] MEDS ORDERED: LACTATED RINGERS 1,000 ML IV ONE (17:20)
--- NOTE | 2020-10-26 19:29 | XR ---
EXAMINATION TYPE: XR Hip Limited RT DATE OF EXAM: 10/26/2020 COMPARISON: NONE HISTORY: Hip surgery TECHNIQUE: 2 views fluoroscopic images FINDINGS: There is a right hip prosthesis. Components appear in anatomic position. IMPRESSION: No complicating process seen.
[2020-10-26] MEDS ORDERED: SENNOSIDES-DOCUSATE SODIUM 1 EACH TAB PO SCH (21:00)
[2020-10-26] MEDS ORDERED: MAG HYDROX/AL HYDROX/SIMETH 30 ML CUP PO PRN (21:11)
[2020-10-26] MEDS: PANTOPRAZOLE 40 MG TABLET PO SCH (21:55)
[2020-10-27 07:11] VITALS: BP 118/78; PULSE 66; RESP 16; TEMP 98.6
[2020-10-27] MEDS: PANTOPRAZOLE 40 MG TABLET PO SCH (08:14)
--- NOTE | 2020-10-27 08:45 | FL ---
EXAMINATION TYPE: FL guidance operating room DATE OF EXAM: 10/26/2020 CLINICAL HISTORY: Right hip arthroplasty TECHNIQUE: Fluoroscopy. COMPARISON: None. FINDINGS: Fluoroscopic guidance was provided during right hip total arthroplasty procedure. A total of 25 seconds of fluoroscopic time was utilized during the procedure and 2 spot images was acquired. IMPRESSION: As Above.
[2020-10-27] MEDS ORDERED: VIT A,C & E-LUTEIN-MINERALS 1 EACH TAB PO SCH (09:00)
[2020-10-27] MEDS ORDERED: ASPIRIN 81 MG PO SCH (09:00)
[2020-10-27] MEDS ORDERED: ENOXAPARIN 40 MG/0.4 ML SYRINGE SQ SCH (09:00)
[2020-10-27] MEDS ORDERED: MAGNESIUM OXIDE 400 MG TAB PO SCH (09:00)
[2020-10-27 09:04] LABS: Basophils # (A) 0.02 X 10*3/uL (0.00-0.10); Basophils % (A) 0.2 %; Eosinophils # (A) 0 X 10*3/uL (0.04-0.35); Eosinophils % (A) 0 %; HCT 33.6 % (37.2-46.3); Lymphocytes # (A) 1.02 X 10*3/uL (0.90-5.00); Lymphocytes % (A) 9.8 %; MCH 31.1 pg (27.0-32.0); MCHC 32.7 g/dL (32.0-37.0); MCV 94.9 fL (80.0-97.0); Mean Platelet Volume 10.2 fL (9.5-12.2); Monocytes # (A) 0.81 X 10*3/uL (0.20-1.00); Monocytes % (A) 7.8 %; Neutrophils # (A) 8.52 X 10*3/uL (1.80-7.70); Neutrophils % (A) 81.6 %; Platelet Count 166 X 10*3/uL (140-440); RBC 3.54 X 10*6/uL (4.10-5.20); RDW 12.9 % (11.5-14.5); WBC 10.43 X 10*3/uL (4.50-10.00)
--- NOTE | 2020-10-27 09:41 | P.PN ---
Subjective Progress Note Date: 10/27/20 Principal diagnosis: Status post direct anterior right total hip arthroplasty Patient was evaluated at bedside, she is resting comfortably in her hospital bed. She is a year to get up and work with physical therapy. She denies any headaches, lightheadedness, chest pain or shortness of breath. Objective - Vital Signs Vital signs: Vital Signs Temp 98.6 F 10/27/20 07:10 Pulse 66 10/27/20 07:10 Resp 16 10/27/20 07:10 BP 118/78 10/27/20 07:10 Pulse Ox 97 10/27/20 07:10 Intake & Output 10/26/20 10/27/20 10/27/20 18:59 06:59 18:59 Intake Total 1050 Output Total 105 Balance 945 Weight 86 kg 86 kg Intake: IV 1050 Output: Estimated Blood Loss 105 Other: Voiding Method Toilet # Voids 2 - Exam Right lower extremity: Incision is clean, dry, and intact. The foam dressing is in good condition. There is minimal soft tissue swelling and ecchymosis surrounding the medial and lateral aspects of the incision. Calf is soft, no tenderness with palpation. Plantar flexion, dorsiflexion, EHL, FHL are intact. Sensory exam to light touch throughout the extremity is intact, dorsal pedis pulses 2+. - Labs CBC & Chem 7: 10/27/20 06:36 Labs: Abnormal Lab Results - Last 24 Hours (Table) 10/27/20 Range/Units 06:36 WBC 10.43 H (4.50-10.00) X 10*3/uL RBC 3.54 L (4.10-5.20) X 10*6/uL Hgb 11.0 L (12.0-15.0) g/dL Hct 33.6 L (37.2-46.3) % Immature Gran # 0.06 H (0.00-0.04) X 10*3/uL Neutrophils # 8.52 H (1.80-7.70) X 10*3/uL Eosinophils # 0 L (0.04-0.35) X 10*3/uL Assessment and Plan Assessment: Postoperative day 1 status post direct anterior right total hip arthroplasty Plan: Pain control, plan for discharge home on [place] 5 mg/325 mg GI and DVT prophylaxis, aspirin 81 mg twice a day for 30 days Encourage incentive spirometer PT/OT evaluation today Dressing instructions were discussed with patient Medical recommendations Discharge planning: Planning for discharge home today Time with Patient: Less than 30
--- NOTE | 2020-10-27 09:48 | P.DS ---
Providers Date of admission: 10/26/2020 Expected date of discharge: 10/27/20 Attending physician: Skyler Weaver Consults: 10/26/20 17:06 Consult Physician Routine Consulting Provider: Karl Monterroso Consult Reason/Comments: Medical management Do you want consulting provider notified?: Yes Primary care physician: Ruddy Monte [place] Hospital Course: Date of admission: 10/26/2020 Date of discharge: 10/27/2020 Admission diagnosis: Status post direct anterior right total hip arthroplasty Discharge diagnosis: same Attending physician: Dr. Weaver Surgical procedures: direct anterior right total hip arthroplasty Brief history: Patient is a 80-year-old female with a history of progressive primary right hip osteoarthritis. At this point patient has failed conservative treatment measures and has opted to proceed with a elective direct anterior right total hip arthroplasty. Hospital course: Details of patient's surgery can be found in operative report. Patient tolerated the procedure well and was subsequently transported to orthopedic floor. Patient's orthopeidc and medical care was provided daily. Patient had daily laboratory tests performed for evaluation of overall blood counts. Patient had daily physical therapy to include strengthening range of motion as well as education with walker ambulation. Patient was treated with Lovenox for their postoperative DVT prophylaxis during their inpatient stay. Patient was noted to have a relatively uneventful postoperative course. Patient reported satisfactory pain control with oral pain medications by postoperative day 0. Patient showed satisfactory progress with physical therapy. Patient moved steadily through the program and had no difficulty meeting the goals by postoperative day 1. Given patient's otherwise satisfactory course and having met physical therapy goals, plan is to discharge patient home on postoperative day 1. Discharge condition/disposition: Patient will be discharged home in stable condition. Discharge medications: Instructions are given on resumption of patient's normal daily medications per primary care recommendation, in addition patient will be prescribed [place] 5 mg/325 mg, Colace 100 mg, aspirin 81 mg. Discharge instructions: 1. Wound care and infection precautions, keep incision dry and covered while showering, no lotions, creams, moisturizers. No soaking, tubs, pools, hottubs. Do not scrub over the incision. After removal of the foam dressing on 11/02/2020, okay to shower directly over incision 2. Weight-bear as tolerated with walker / cane until follow-up. 3. Ice and elevate when necessary. Do not exceed 20 minutes per hour with ice pack. 4. Utilize compression sleeve until seen at first follow up appointment. 5. Visiting nursing care. 6. Home physical therapy including home CPM. 7. Pain meds and anticoagulants per prescription. 8. Pain medication has potential to cause constipation. Increase oral fluid and fiber intake. Contact primary care provider if you have not had a bowel movement within 48 hours after discharge 9. No anti-inflammatory medication until discussed at first post operative visit, this including Motrin, Aleve, Mobic, Diclofenac 10. Follow up in office at 2 weeks postop with Sanjay Jones PA-C/Theron Mc 11. Follow up with your primary care doctor 7-10 days after discharge. 12. Contact [facility] with any questions, . Procedures: Direct anterior right total hip arthroplasty Patient Condition at Discharge: Good Plan - Discharge Summary Discharge Rx Participant: Yes New Discharge Prescriptions: New Docusate [Colace] 100 mg PO DAILY #30 capsule HYDROcodone/APAP 5-325MG [[place] 5-325] 1 - 2 tab PO Q6HR PRN #42 tab PRN Reason: Pain No Action lisinopriL [Zestril] 20 mg PO DAILY Vit C/E/Zn/Coppr/Lutein/Zeaxan [Preservision Areds 2 Softgel] 1 each PO BID Magnesium 500 mg PO DAILY Loratadine [Claritin] 10 mg PO DAILY Aspirin [Adult Low Dose Aspirin EC] 81 mg PO BID #60 tablet. Gabapentin [Neurontin] 400 mg PO 1700 Discharge Medication List lisinopriL [Zestril] 20 mg PO DAILY 09/20/15 [History] Magnesium 500 mg PO DAILY 03/29/18 [History] Vit C/E/Zn/Coppr/Lutein/Zeaxan [Preservision Areds 2 Softgel] 1 each PO BID 03/29/18 [History] Loratadine [Claritin] 10 mg PO DAILY 03/06/20 [History] Aspirin [Adult Low Dose Aspirin EC] 81 mg PO BID #60 tablet. 03/17/20 [Rx] Gabapentin [Neurontin] 400 mg PO 1700 10/23/20 [History] Docusate [Colace] 100 mg PO DAILY #30 capsule 10/27/20 [Rx] HYDROcodone/APAP 5-325MG [[place] 5-325] 1 - 2 tab PO Q6HR PRN #42 tab 10/27/20 [Rx] Follow up Appointment(s)/Referral(s): Mell Fox MD [Primary Care Provider] - 11/03/20 9:40 am Prince Jones PAC [PH[facility]IC[facility]] - 11/11/20 2:10 pm Activity/Diet/Wound Care/Special Instructions: Orthopedic Discharge Instructions: 1. Wound care and infection precautions, keep incision dry and covered while showering, no lotions, creams, moisturizers. No soaking, pools, hot tubs. Do not scrub over incision. After removal of the foam dressing on 11/02/2020, can directly shower over incision 2. Weight-bear as tolerated with walker / cane until follow-up. 3. Ice and elevate when necessary. Do not exceed 20 minutes per hour with ice pack. 4. Utilize compression sleeve until seen at first follow up appointment. 5. Pain meds and anticoagulants per prescription. 6. Pain medication has potential to cause constipation. Increase oral fluid and fiber intake. Contact primary care provider if you have not had a bowel movement within 48 hours after discharge. 7. No anti-inflammatory medication until discussed at first post operative visit, this including Motrin, Aleve, Mobic, Diclofenac. 8. Follow up in office at 2 weeks postop with Sanjay Jones PA-C/Theron Burnett PA-C 9. Follow up with your primary care doctor 7-10 days after discharge. 10. Contact [facility] with any questions, . Discharge Disposition: HOME WITH HOME HEALTH SERVICES
--- NOTE | 2020-10-27 11:56 | P.CONS ---
History of Present Illness - Reason for Consult Management of hypertension and leukocytosis - History of Present Illness Patient is a pleasant 80-year-old female a admitted for left hip arthroplasty patient is excessively no surgery patient was bit hypotensive. Patient does use lisinopril 20 mg daily patient did lose significant weight and patient has been using 20 mg of lisinopril for many years. Patient does have leukocytosis but doesn't have any cough. patient denied any dysuria denied any fever chills cough. Patient is clinically doing well and probably will be discharged later today. REVIEW OF SYSTEMS: CONSTITUTIONAL: No fever, no malaise, no fatigue. HEENT: No recent visual problems or hearing problems. Denied any sore throat. CARDIOVASCULAR: No chest pain, orthopnea, PND, no palpitations, no syncope. PULMONARY: No shortness of breath, no cough, no hemoptysis. GASTROINTESTINAL: No diarrhea, no nausea, no vomiting, no abdominal pain. NEUROLOGICAL: No headaches, no weakness, no numbness. HEMATOLOGICAL: Denies any bleeding or petechiae. GENITOURINARY: Denies any burning micturition, frequency, or urgency. MUSCULOSKELETAL/RHEUMATOLOGICAL: Denies any joint pain, swelling, or any muscle pain. ENDOCRINE: Denies any polyuria or polydipsia. The rest of the 14-point review of systems is negative. PHYSICAL EXAMINATION: GENERAL: The patient is alert and oriented x3, not in any acute distress. Well developed, well nourished. HEENT: Pupils are round and equally reacting to light. EOMI. No scleral icterus. No conjunctival pallor. Normocephalic, atraumatic. No pharyngeal erythema. No thyromegaly. CARDIOVASCULAR: S1 and S2 present. No murmurs, rubs, or gallops. PULMONARY: Chest is clear to auscultation, no wheezing or crackles. ABDOMEN: Soft, nontender, nondistended, normoactive bowel sounds. No palpable organomegaly. MUSCULOSKELETAL: Deferred to orthopedic surgery EXTREMITIES: No cyanosis, clubbing, or pedal edema. NEUROLOGICAL: Gross neurological examination did not reveal any focal deficits. SKIN: No rashes. Assessment and plan -Hypertension: Patient is hypotensive at this time this is expected in the perioperative period patient was asked to hold her anti-with his medication that is lisinopril today and tomorrow patient can start taking half a pill if her blood pressure starts going up I believe patient will not need to 20 mg of lisinopril patient is asked to check the blood pressure 2-3 times a day and take it to PCP so that her antidepressive medications can be titrated accordingly. -Gastric esophageal reflux disease -Primary multi-joint osteoarthritis and patient is a hip arthroplasty and due to prophylaxis as per primary service I believe patient is an 81 mg twice a day for that. Patient can be discharged from medical perspective Past Medical History Past Medical History: Cancer, GERD/Reflux, Hypertension, Osteoarthritis (OA) Additional Past Medical History / Comment(s): "leaky heart valve,irregular heart beat". hiatal hernia, hx kidney stones, hx skin cancer, neuropathy History of Any Multi-Drug Resistant Organisms: None Reported Past Surgical History: Cholecystectomy, Heart Catheterization, Joint Repla cement, Orthopedic Surgery, Tonsillectomy Additional Past Surgical History / Comment(s): margot cataract extraction, reconstructive facial surgery-left eye, rt carpal tunnel, rt bunionectomy, COLONOSCOPY, EGD, left hip replacement Past Anesthesia/Blood Transfusion Reactions: No Reported Reaction Past Psychological History: No Psychological Hx Reported Smoking Status: Never smoker Past Alcohol Use History: Rare Past Drug Use History: None Reported - Past Family History Mother Family Medical History: Cancer Medications and Allergies Home Medications Medication Instructions Recorded Confirmed Type Magnesium 500 mg PO DAILY 03/29/18 10/26/20 History Vit C/E/Zn/Coppr/Lutein/Zeaxan 1 each PO BID 03/29/18 10/23/20 History [Preservision Areds 2 Softgel] Loratadine [Claritin] 10 mg PO DAILY 03/06/20 10/26/20 History Aspirin [Adult Low Dose Aspirin EC] 81 mg PO BID #60 tablet. 03/17/20 10/23/20 Rx Gabapentin [Neurontin] 400 mg PO 1700 10/23/20 10/26/20 History Docusate [Colace] 100 mg PO DAILY #30 capsule 10/27/20 Rx HYDROcodone/APAP 5-325MG [[place] 1 - 2 tab PO Q6HR PRN #42 tab 10/27/20 Rx 5-325] lisinopriL [Zestril] 20 mg PO DAILY #0 10/27/20 10/26/20 Rx Allergies Allergy/AdvReac Type Severity Reaction Status Date / Time No Known Allergies Allergy Verified 10/26/20 14:05 Physical Exam Vitals: Vital Signs Temp Pulse Pulse Resp BP BP Pulse Ox 10/27/20 08:17 66 16 10/27/20 07:10 98.6 F 66 16 118/78 97 10/27/20 02:00 98.5 F 68 17 106/65 95 10/26/20 22:56 93 L 10/26/20 20:18 76 116/79 91 L 10/26/20 19:48 73 116/78 89 L 10/26/20 19:18 73 122/81 10/26/20 19:05 16 10/26/20 19:04 70 124/81 10/26/20 18:49 72 141/81 10/26/20 18:18 97.5 F L 69 16 138/77 97 10/26/20 18:05 70 16 110/68 98 10/26/20 17:50 73 16 127/67 98 10/26/20 17:35 60 16 107/58 97 10/26/20 17:22 98.5 F 68 12 95/50 99 10/26/20 14:03 97.1 F L 70 16 147/69 96 Intake and Output 10/26/20 10/27/20 10/27/20 22:59 06:59 14:59 Intake Total 850 Output Total 105 Balance 745 Intake: IV 850 Output: Estimated Blood Loss 105 Other: Voiding Method Toilet Toilet # Voids 2 Weight 86 kg Results CBC & Chem 7: 10/27/20 06:36 Labs: Abnormal Lab Results - Last 24 Hours (Table) 10/27/20 Range/Units 06:36 WBC 10.43 H (4.50-10.00) X 10*3/uL RBC 3.54 L (4.10-5.20) X 10*6/uL Hgb 11.0 L (12.0-15.0) g/dL Hct 33.6 L (37.2-46.3) % Immature Gran # 0.06 H (0.00-0.04) X 10*3/uL Neutrophils # 8.52 H (1.80-7.70) X 10*3/uL Eosinophils # 0 L (0.04-0.35) X 10*3/uL
[2020-10-27] MEDS ORDERED: GABAPENTIN 400 MG CAP PO SCH (17:00)
== END 2020-10-27 13:50 | disposition home health service (06) ==
LOC: OR 13:38 → 4SSUR 17:16 → OR 10-27 13:50
PROVIDERS: ATTEND Orthopaedic Surgery
DX: M16.11 Unilateral primary osteoarthritis, right hip (principal); I10 Essential (primary) hypertension; E78.5 Hyperlipidemia, unspecified; Z79.891 Long term (current) use of opiate analgesic; Z79.899 Other long term (current) drug therapy; Z90.49 Acquired absence of other specified parts of digestive tract; Z98.890 Other specified postprocedural states; D72.829 Elevated white blood cell count, unspecified; K21.9 Gastro-esophageal reflux disease without esophagitis; G47.33 Obstructive sleep apnea (adult) (pediatric); M19.90 Unspecified osteoarthritis, unspecified site; Z85.828 Personal history of other malignant neoplasm of skin; I38 Endocarditis, valve unspecified; K44.9 Diaphragmatic hernia without obstruction or gangrene; G62.9 Polyneuropathy, unspecified; Z87.442 Personal history of urinary calculi; Z90.89 Acquired absence of other organs; Z98.42 Cataract extraction status, left eye; Z98.41 Cataract extraction status, right eye; Z96.642 Presence of left artificial hip joint; Z80.9 Family history of malignant neoplasm, unspecified; Z79.82 Long term (current) use of aspirin
CPT/HCPCS: 97161; 86900; 86901; 85025; 86850; 88300; 73501; 36415; 27130; C1776; J2250; J1100; J0690 ×2; J2405; J1650; J3010; J2704; J1170

== ENCOUNTER 2021-03-17 17:40 | Inpatient (IN) | payer MEDICARE ==
[2021-03-17 18:50] LABS: HCT 42.9 % (34.0-46.0); HGB 15.1 gm/dL (11.4-16.0); MCH 30.7 pg (25.0-35.0); MCHC 35.2 g/dL (31.0-37.0); MCV 87.1 fL (80.0-100.0); Mean Platelet Volume 7.3; Platelet Count 185 k/uL (150-450); RBC 4.93 m/uL (3.80-5.40); RDW 13.1 % (11.5-15.5); WBC 7.5 k/uL (3.8-10.6)
[2021-03-17 18:58] LABS: ALT 44 U/L (4-34); AST 35 U/L (14-36); African American GFR (CKD) >90 (>60 ml/min/1.73 sqM); Albumin 3.4 g/dL (3.5-5.0); Alkaline Phosphatase 80 U/L (38-126); Anion Gap 6 mmol/L; Blood Urea Nitrogen 14 mg/dL (7-17); Carbon Dioxide 24 mmol/L (22-30); Chloride 98 mmol/L (98-107); Glucose 115 mg/dL (74-99); Magnesium 1.9 mg/dL (1.6-2.3); Non-African American GFR(CKD) 88 (>60 ml/min/1.73 sqM); Potassium 4.1 mmol/L (3.5-5.1); Sodium 128 mmol/L (137-145); Total Bilirubin 0.5 mg/dL (0.2-1.3); Total Protein 6.1 g/dL (6.3-8.2)
[2021-03-17 19:13] LABS: INR 0.9 (<1.2); Partial Thromboplastin Time 23.7 sec (22.0-30.0); Prothrombin Time 10.1 sec (9.0-12.0)
--- NOTE | 2021-03-17 19:30 | XR ---
EXAMINATION TYPE: XR chest 1V portable DATE OF EXAM: 03/17/2021 COMPARISON: 10/21/2019 INDICATION: Covid short of breath cough fever TECHNIQUE: Single frontal view of the chest is obtained. FINDINGS: The heart size is normal. The pulmonary vasculature is normal. Nonspecific scattered lung markings are present. Early atypical pneumonia should be considered. No shi spicious focal consolidations. IMPRESSION: 1. No suspicious infiltrates or consolidations. Mild nonspecific lung markings are present. Follow-up can be performed as clinically indicated.
[2021-03-17] MEDS ORDERED: ACETAMINOPHEN TAB 500 MG TAB PO STA (19:52)
[2021-03-17 20:00] LABS: Band Neutrophils % 2 %; Lymphocytes # (M) 0.38 k/uL (1.0-4.8); Monocytes # (M) 0.45 k/uL (0-1.0); Myelocytes # (M) 0.08 k/uL (0); Myelocytes % 1 %; Neutrophils % (M) 87 %; Nucleated Red Blood Cells 0 /100 WBC (0-0); Total Cells Counted 200
--- NOTE | 2021-03-17 20:08 | ED ---
SOB HPI - General Chief Complaint: Shortness of Breath Stated Complaint: COVID+, not feeling well Time Seen by Provider: 03/17/21 17:43 Source: patient, EMS Mode of arrival: EMS Limitations: no limitations - History of Present Illness Initial Comments: Patient presents with shortness of breath. She was diagnosed with Covid recently. She has been symptomatic for 12 days. She has no chest pain or pressure or tightness. She has no nausea or vomiting. She has no focal weakness. She has taken no medicine for the symptoms. She has no swelling in the arms or legs. She has positive sick contacts at home. She has not traveled anywhere. - Related Data Home Medications Medication Instructions Recorded Confirmed Loratadine [Claritin] 10 mg PO DAILY 03/06/20 03/17/21 Albuterol Inhaler [Ventolin Hfa 1 puff INHALATION RT-Q4H PRN 03/17/21 03/17/21 Inhaler] Azithromycin [Zithromax Z-pack (6 See Taper PO DAILY 03/17/21 03/17/21 tabs)] Gabapentin 600 mg PO BID 03/17/21 03/17/21 dexAMETHasone 6 mg PO DAILY 03/17/21 03/17/21 Previous Rx's Medication Instructions Recorded lisinopriL [Zestril] 20 mg PO DAILY #0 10/27/20 Allergies Allergy/AdvReac Type Severity Reaction Status Date / Time No Known Allergies Allergy Verified 03/17/21 18:26 Review of Systems ROS Statement: Those systems with pertinent positive or pertinent negative responses have been documented in the HPI. ROS Other: All systems not noted in ROS Statement are negative. Past Medical History Past Medical History: GERD/Reflux, Hypertension, Osteoarthritis (OA) Additional Past Medical History / Comment(s): "leaky heart valve,irregular heart beat". hiatal hernia, hx kidney stones History of Any Multi-Drug Resistant Organisms: None Reported Past Surgical History: Cholecystectomy, Orthopedic Surgery, Tonsillectomy Additional Past Surgical History / Comment(s): cataract extraction, reconstructive facial surgery, rt carpal tunnel, rt bunionectomy, COLONOSCOPY, EGD,b Past Anesthesia/Blood Transfusion Reactions: No Reported Reaction Past Psychological History: Depression Smoking Status: Never smoker Past Alcohol Use History: Occasional Past Drug Use History: None Reported - Past Family History Mother Family Medical History: Cancer General Exam Limitations: no limitations General appearance: alert, in no apparent distress Head exam: Present: atraumatic, normocephalic, normal inspection Eye exam: Present: normal appearance, PERRL, EOMI. Absent: scleral icterus, conjunctival injection, periorbital swelling ENT exam: Present: normal exam, mucous membranes moist Neck exam: Present: normal inspection. Absent: tenderness, meningismus, lymphadenopathy Respiratory exam: Present: respiratory distress. Absent: rales, rhonchi, stridor Cardiovascular Exam: Present: regular rate, normal rhythm, normal heart sounds. Absent: systolic murmur, diastolic murmur, rubs, gallop, clicks GI/Abdominal exam: Present: soft, normal bowel sounds. Absent: distended, tenderness, guarding, rebound, rigid Extremities exam: Present: normal inspection, full ROM, normal capillary refill. Absent: tenderness, pedal edema, joint swelling, calf tenderness Back exam: Present: normal inspection Neurological exam: Present: alert, oriented X3, CN II-XII intact Psychiatric exam: Present: normal affect, normal mood Skin exam: Present: warm, dry, intact, normal color. Absent: rash Course Vital Signs 03/17/21 03/17/21 17:47 18:41 Temperature 102.0 F H Pulse Rate 81 Respiratory 18 Rate Blood Pressure 149/85 O2 Sat by Pulse 95 93 L Oximetry Medical Decision Making - Medical Decision Making Patient is reevaluated. She is hypoxic on room air require supplemental oxygen therapy. She will be admitted to the hospital. - Lab Data Result diagrams: 03/17/21 18:36 03/17/21 18:36 Lab Results 03/17/21 03/17/21 03/17/21 Range/Units 18:36 18:36 18:36 WBC 7.5 (3.8-10.6) k/uL RBC 4.93 (3.80-5.40) m/uL Hgb 15.1 (11.4-16.0) gm/dL Hct 42.9 (34.0-46.0) % MCV 87.1 (80.0-100.0) fL MCH 30.7 (25.0-35.0) pg MCHC 35.2 (31.0-37.0) g/dL RDW 13.1 (11.5-15.5) % Plt Count 185 (150-450) k/uL MPV 7.3 Neutrophils % (Manual) 87 % Band Neuts % (Manual) 2 % Lymphocytes % (Manual) 5 % Monocytes % (Manual) 6 % Myelocytes % 1 % Neutrophils # (Manual) 6.60 (1.3-7.7) k/uL Lymphocytes # (Manual) 0.38 L (1.0-4.8) k/uL Monocytes # (Manual) 0.45 (0-1.0) k/uL Myelocytes # (Manual) 0.08 H (0) k/uL Nucleated RBCs 0 (0-0) /100 WBC Manual Slide Review Performed PT 10.1 (9.0-12.0) sec INR 0.9 (<1.2) APTT 23.7 (22.0-30.0) sec D-Dimer 1.32 H (<0.60) mg/L FEU Sodium (137-145) mmol/L Potassium (3.5-5.1) mmol/L Chloride (98-107) mmol/L Carbon Dioxide (22-30) mmol/L Anion Gap mmol/L BUN (7-17) mg/dL Creatinine (0.52-1.04) mg/dL Est GFR (CKD-EPI)AfAm (>60 ml/min/1.73 sqM) Est GFR (CKD-EPI)NonAf (>60 ml/min/1.73 sqM) Glucose (74-99) mg/dL Calcium (8.4-10.2) mg/dL Magnesium (1.6-2.3) mg/dL Total Bilirubin (0.2-1.3) mg/dL AST (14-36) U/L ALT (4-34) U/L Alkaline Phosphatase (38-126) U/L Troponin I (0.000-0.034) ng/mL NT-Pro-B Natriuret Pep pg/mL Total Protein (6.3-8.2) g/dL Albumin (3.5-5.0) g/dL Influenza Type A (PCR) Not Detected (Not Detectd) Influenza Type B (PCR) Not Detected (Not Detectd) RSV (PCR) Not Detected (Not Detectd) SARS-CoV-2 (PCR) Detected A (Not Detectd) 03/17/21 03/17/21 03/17/21 Range/Units 18:36 18:36 18:36 WBC (3.8-10.6) k/uL RBC (3.80-5.40) m/uL Hgb (11.4-16.0) gm/dL Hct (34.0-46.0) % MCV (80.0-100.0) fL MCH (25.0-35.0) pg MCHC (31.0-37.0) g/dL RDW (11.5-15.5) % Plt Count (150-450) k/uL MPV Neutrophils % (Manual) % Band Neuts % (Manual) % Lymphocytes % (Manual) % Monocytes % (Manual) % Myelocytes % % Neutrophils # (Manual) (1.3-7.7) k/uL Lymphocytes # (Manual) (1.0-4.8) k/uL Monocytes # (Manual) (0-1.0) k/uL Myelocytes # (Manual) (0) k/uL Nucleated RBCs (0-0) /100 WBC Manual Slide Review PT (9.0-12.0) sec INR (<1.2) APTT (22.0-30.0) sec D-Dimer (<0.60) mg/L FEU Sodium 128 L (137-145) mmol/L Potassium 4.1 (3.5-5.1) mmol/L Chloride 98 (98-107) mmol/L Carbon Dioxide 24 (22-30) mmol/L Anion Gap 6 mmol/L BUN 14 (7-17) mg/dL Creatinine 0.59 (0.52-1.04) mg/dL Est GFR (CKD-EPI)AfAm >90 (>60 ml/min/1.73 sqM) Est GFR (CKD-EPI)NonAf 88 (>60 ml/min/1.73 sqM) Glucose 115 H (74-99) mg/dL Calcium 8.0 L (8.4-10.2) mg/dL Magnesium 1.9 (1.6-2.3) mg/dL Total Bilirubin 0.5 (0.2-1.3) mg/dL AST 35 (14-36) U/L ALT 44 H (4-34) U/L Alkaline Phosphatase 80 (38-126) U/L Troponin I <0.012 (0.000-0.034) ng/mL NT-Pro-B Natriuret Pep 96 pg/mL Total Protein 6.1 L (6.3-8.2) g/dL Albumin 3.4 L (3.5-5.0) g/dL Influenza Type A (PCR) (Not Detectd) Influenza Type B (PCR) (Not Detectd) RSV (PCR) (Not Detectd) SARS-CoV-2 (PCR) (Not Detectd) 03/17/21 20:06 Twelve-lead EKG shows ventricular rate 83 bpm, normal MD interval and QRS complexes, no ST elevation or depression, interpreted by me as normal sinus rhythm. Disposition Clinical Impression: COVID-19 Disposition: ADMITTED IP TO THIS HOSP Condition: Fair Referrals: Mell Fox MD [Primary Care Provider] - 1-2 days
[2021-03-17] MEDS ORDERED: NALOXONE 0.4 MG/ML 1 ML VIAL IV PRN (20:09)
[2021-03-17] MEDS ORDERED: ONDANSETRON 4 MG/2 ML VIAL IVP PRN (20:09)
[2021-03-17] MEDS ORDERED: CALCIUM CARBONATE 500 MG CHEWABLE PO PRN (20:09)
[2021-03-17] MEDS ORDERED: HYDROcodone/APAP 5-325MG 1 EACH TAB PO PRN (20:09)
[2021-03-17] MEDS: SODIUM CHLORIDE 0.9% 1,000 ML IV SCH (22:40)
[2021-03-17] MEDS: GABAPENTIN 300 MG CAP PO SCH (22:40)
[2021-03-17] MEDS: ZINC SULFATE 220 MG CAP PO SCH (22:40)
[2021-03-17] MEDS: ENOXAPARIN 40 MG/0.4 ML SYRINGE SQ SCH (22:40)
[2021-03-18] MEDS: ALBUTEROL HFA INHALER INHALATION PRN ×4 (07:35→20:10)
[2021-03-18] MEDS: LORATADINE 10 MG TAB PO SCH ×3 (08:36→08:38)
[2021-03-18] MEDS: ZINC SULFATE 220 MG CAP PO SCH (08:36)
[2021-03-18] MEDS: GABAPENTIN 300 MG CAP PO SCH ×2 (08:36→20:45)
[2021-03-18] MEDS: ENOXAPARIN 40 MG/0.4 ML SYRINGE SQ SCH ×2 (08:36→20:45)
[2021-03-18] MEDS: DEXAMETHASONE SOD PHOSPHATE 10 MG/ML 1 ML VIAL IVP SCH (08:38)
[2021-03-18] MEDS ORDERED: lisinopriL 20 MG TAB PO SCH (09:00)
--- NOTE | 2021-03-18 12:50 | P.HPIM ---
History of Present Illness 10-year-old Female Came in with Comments of a Cough Shortness of Has Been Going on for about 12 Days and Patient Was Diagnosed with Covid 19 about a Week Ago. Patient Has Body Aches Generalized Weakness Doesn't Have Any Fever Denied Any Diarrhea or Nausea Vomiting. Patient Was Not Vaccinated for Covid 19. Serum Sodium Is 128 D-Dimer Is 1.32. Patient is presently on 3 L of oxygen chest x- ray did not show any significant infiltrate REVIEW OF SYSTEMS: CONSTITUTIONAL: No fever, no malaise, no fatigue. HEENT: No recent visual problems or hearing problems. Denied any sore throat. CARDIOVASCULAR: No chest pain, orthopnea, PND, no palpitations, no syncope. PULMONARY: no hemoptysis. GASTROINTESTINAL: No diarrhea, no nausea, no vomiting, no abdominal pain. NEUROLOGICAL: No headaches, no weakness, no numbness. HEMATOLOGICAL: Denies any bleeding or petechiae. GENITOURINARY: Denies any burning micturition, frequency, or urgency. MUSCULOSKELETAL/RHEUMATOLOGICAL: Denies any joint pain, swelling, or any muscle pain. ENDOCRINE: Denies any polyuria or polydipsia. The rest of the 14-point review of systems is negative. PHYSICAL EXAMINATION: GENERAL: The patient is alert and oriented x3, not in any acute distress. Well developed, well nourished. HEENT: Pupils are round and equally reacting to light. EOMI. No scleral icterus. No conjunctival pallor. Normocephalic, atraumatic. No pharyngeal erythema. No thyromegaly. CARDIOVASCULAR: S1 and S2 present. No murmurs, rubs, or gallops. PULMONARY: Chest is clear to auscultation, no wheezing or crackles. ABDOMEN: Soft, nontender, nondistended, normoactive bowel sounds. No palpable organomegaly. MUSCULOSKELETAL: No joint swelling or deformity. EXTREMITIES: No cyanosis, clubbing, or pedal edema. NEUROLOGICAL: Gross neurological examination did not reveal any focal deficits. SKIN: No rashes. Assessment and plan -Acute hypoxic respiratory failure secondary to Covid 19 pneumonia patient will be continued on Decadron, vitamin C, vitamin D in the sink patient is not a candidate for Remdesivir, pulmonary will evaluate the patient -Gastroesophageal reflux disease -Hypertension -Hypovolemic hyponatremia patient will be started on IV fluids DVT prophylaxis: When asked twice a day Past Medical History Past Medical History: Eye Disorder, GERD/Reflux, Hypertension, Osteoarthritis (OA), Renal Disease Additional Past Medical History / Comment(s): Hiatal hernia, leaky heart valve, nephrolithiasis-passed stones on her own, bilateral macular degeneration, neuropathy bilateral calves, skin cancer. History of Any Multi-Drug Resistant Organisms: None Reported Past Surgical History: Adenoidectomy, Cholecystectomy, Joint Replacement, Ort hopedic Surgery, Tonsillectomy Additional Past Surgical History / Comment(s): Bilateral total hip arthroplasties, R foot bunionectomy, R wrist carpal tunnel release, L eye rec onstructive surgery, skin cancer removals, D&C, EGD, colonoscopy, bilateral cataract removals. Past Anesthesia/Blood Transfusion Reactions: No Reported Reaction Smoking Status: Never smoker - Past Family History Father Family Medical History: Coronary Artery Disease (CAD), Myocardial Infarction (KS) Additional Family Medical History / Comment(s): Father had a massive [place] at the age of 61 yrs and during CABG surgery. Mother Family Medical History: Cancer Additional Family Medical History / Comment(s): Hodgkins Medications and Allergies Home Medications Medication Instructions Recorded Confirmed Type Loratadine [Claritin] 10 mg PO DAILY 03/06/20 03/17/21 History lisinopriL [Zestril] 20 mg PO DAILY #0 10/27/20 03/17/21 Rx Albuterol Inhaler [Ventolin Hfa 1 puff INHALATION RT-Q4H PRN 03/17/21 03/17/21 History Inhaler] Azithromycin [Zithromax Z-pack (6 See Taper PO DAILY 03/17/21 03/17/21 History tabs)] Gabapentin 600 mg PO BID 03/17/21 03/17/21 History dexAMETHasone 6 mg PO DAILY 03/17/21 03/17/21 History Allergies Allergy/AdvReac Type Severity Reaction Status Date / Time No Known Allergies Allergy Verified 03/17/21 18:26 Physical Exam Vitals: Vital Signs Temp Pulse Resp BP Pulse Ox 03/18/21 08:38 61 18 122/72 98 03/18/21 07:36 98 03/18/21 06:43 97.9 F 52 L 18 117/81 98 03/18/21 04:28 97.6 F 57 L 18 128/82 97 03/17/21 22:46 98.3 F 64 16 132/84 95 03/17/21 18:41 93 L 03/17/21 17:47 102.0 F H 81 18 149/85 95 Intake and Output 03/17/21 03/18/21 03/18/21 22:59 06:59 14:59 Other: Weight 86.183 kg 86.183 kg Results CBC & Chem 7: 03/17/21 18:36 03/17/21 18:36 Labs: Abnormal Lab Results - Last 24 Hours (Table) 03/17/21 03/17/21 03/17/21 Range/Units 18:36 18:36 18:36 Lymphocytes # (Manual) 0.38 L (1.0-4.8) k/uL Myelocytes # (Manual) 0.08 H (0) k/uL D-Dimer 1.32 H (<0.60) mg/L FEU Sodium (137-145) mmol/L Glucose (74-99) mg/dL Calcium (8.4-10.2) mg/dL ALT (4-34) U/L Total Protein (6.3-8.2) g/dL Albumin (3.5-5.0) g/dL SARS-CoV-2 (PCR) Detected A (Not Detectd) 03/17/21 Range/Units 18:36 Lymphocytes # (Manual) (1.0-4.8) k/uL Myelocytes # (Manual) (0) k/uL D-Dimer (<0.60) mg/L FEU Sodium 128 L (137-145) mmol/L Glucose 115 H (74-99) mg/dL Calcium 8.0 L (8.4-10.2) mg/dL ALT 44 H (4-34) U/L Total Protein 6.1 L (6.3-8.2) g/dL Albumin 3.4 L (3.5-5.0) g/dL SARS-CoV-2 (PCR) (Not Detectd) Thrombosis Risk Factor Assmnt - Choose All That Apply Any of the Below Risk Factors Present?: Yes Each Factor Represents 1 point: Obesity (BMI >25), Serious lung disease incl. pneumonia (< 1month) Other Risk Factors: Yes Each Risk Factor Represents 2 Points: Malignancy Each Risk Factor Represents 3 Points: Age 75 years or older Other congenital or acquired thrombophilia - If yes, enter type in comment: No Thrombosis Risk Factor Assessment Total Risk Factor Score: 7 Thrombosis Risk Factor Assessment Level: High Risk
[2021-03-18] MEDS: SODIUM CHLORIDE 0.9% 1,000 ML IV SCH ×3 (16:00→22:29)
[2021-03-18] MEDS: ASCORBIC ACID 500 MG TAB PO SCH (20:45)
[2021-03-18] MEDS: MELATONIN 5 MG TABLET PO SCH (21:26)
[2021-03-18] MEDS: ACETAMINOPHEN TAB 325 MG TAB PO PRN (21:32)
[2021-03-19] MEDS: ALBUTEROL HFA INHALER INHALATION PRN ×3 (08:17→21:17)
[2021-03-19] MEDS: SODIUM CHLORIDE 0.9% 1,000 ML IV SCH (08:32)
[2021-03-19] MEDS: DEXAMETHASONE SOD PHOSPHATE 10 MG/ML 1 ML VIAL IVP SCH (08:36)
[2021-03-19] MEDS: ACETAMINOPHEN TAB 325 MG TAB PO PRN ×2 (08:38→20:54)
[2021-03-19] MEDS ORDERED: lisinopriL 10 MG TAB PO SCH (09:00)
[2021-03-19] MEDS: GABAPENTIN 300 MG CAP PO SCH ×2 (09:00→20:50)
[2021-03-19] MEDS: ZINC SULFATE 220 MG CAP PO SCH (09:01)
[2021-03-19] MEDS: ENOXAPARIN 40 MG/0.4 ML SYRINGE SQ SCH ×2 (09:01→20:50)
[2021-03-19] MEDS: ASCORBIC ACID 500 MG TAB PO SCH ×2 (09:01→20:50)
[2021-03-19] MEDS: LORATADINE 10 MG TAB PO SCH (09:01)
[2021-03-19 11:05] LABS: HCT 44.5 % (37.2-46.3); HGB 14.8 g/dL (12.0-15.0); MCHC 33.3 g/dL (32.0-37.0); MCV 90.3 fL (80.0-97.0); Mean Platelet Volume 9.5 fL (9.5-12.2); Platelet Count 188 X 10*3/uL (140-440); RBC 4.93 X 10*6/uL (4.10-5.20); RDW 13.4 % (11.5-14.5); WBC 6.93 X 10*3/uL (4.50-10.00)
[2021-03-19 11:26] LABS: African American GFR (CKD) 92.9 (60.0-200.0); Anion Gap 10.5 mmol/L (10.00-18.00); BUN/Creat Ratio 16.2 Ratio (12.00-20.00); Blood Urea Nitrogen 11.6 mg/dL (9.0-27.0); Calcium 8.1 mg/dL (8.7-10.3); Carbon Dioxide 25.7 mmol/L (20.0-27.5); Non-African American GFR(CKD) 80.2 (60.0-200.0); Potassium 4.6 mmol/L (3.5-5.5)
[2021-03-19 13:44] VITALS: BMI 27.2
[2021-03-19] MEDS: MELATONIN 5 MG TABLET PO SCH (20:50)
--- NOTE | 2021-03-20 00:55 | P.PN ---
Subjective Progress Note Date: 03/19/21 80-year-old Female Came in with Comments of a Cough Shortness of Has Been Going on for about 12 Days and Patient Was Diagnosed with Covid 19 about a Week Ago. Patient Has Body Aches Generalized Weakness Doesn't Have Any Fever Denied Any Diarrhea or Nausea Vomiting. Patient Was Not Vaccinated for Covid 19. Serum Sodium Is 128 D-Dimer Is 1.32. Patient is presently on 3 L of oxygen chest x- ray did not show any significant infiltrate 03/19/2021 Patient is seen and evaluated this morning and states she feels awful and extremely weak and has fever this morning. Patient is maintained on 2L via NC and denies any worsening shortness of breath. Patient states extreme body aches and feels exhausted. Oral intake is poor and no real appetite. Encouraged oral intake and increased activity as tolerated. Maintained on IV hydration and sodium mildly improved at 130 today. Will repeat am labs and monitor closely. REVIEW OF SYSTEMS: CONSTITUTIONAL: reports fever, malaise, and fatigue. CARDIOVASCULAR: No chest pain, or palpitations PULMONARY: reports mild shortness of breath. GASTROINTESTINAL: No diarrhea, no nausea, no vomiting, no abdominal pain. reports no desire to eat NEUROLOGICAL: No headaches, reports generalized weakness GENITOURINARY: Denies any burning micturition, frequency, or urgency. Active Medications Acetaminophen (Acetaminophen Tab 325 Mg Tab) 650 mg PO Q6HR PRN PRN Reason: Mild Pain or Fever > 100.5 Last Admin: 03/19/21 20:54 Dose: 650 mg Documented by: Hydrocodone Bitart/Acetaminophen (Hydrocodone/Apap 5-325mg 1 Each Tab) 1 each PO Q4HR PRN PRN Reason: Moderate Pain Last Admin: 03/17/21 22:43 Dose: 1 each Documented by: Albuterol Sulfate (Albuterol Hfa Inhaler) 1 puff INHALATION RT-Q4H PRN PRN Reason: Shortness Of Breath Last Admin: 03/19/21 21:17 Dose: 1 puff Documented by: Ascorbic Acid (Ascorbic Acid 500 Mg Tab) 500 mg PO BID ALDO Last Admin: 03/19/21 20:50 Dose: 500 mg Documented by: Calcium Carbonate/Glycine (Calcium Carbonate 500 Mg Chewable) 1,000 mg PO Q4HR PRN PRN Reason: Dyspepsia Dexamethasone Sodium Phosphate (Dexamethasone Sod Phosphate 10 Mg/Ml 1 Ml Vial) 6 mg IVP DAILY [facility] Last Admin: 03/19/21 08:36 Dose: 6 mg Documented by: Enoxaparin Sodium (Enoxaparin 40 Mg/0.4 Ml Syringe) 40 mg SQ BID [facility] Last Admin: 03/19/21 20:50 Dose: 40 mg Documented by: Gabapentin (Gabapentin 300 Mg Cap) 600 mg PO BID [facility] Last Admin: 03/19/21 20:50 Dose: 600 mg Documented by: Sodium Chloride (Saline 0.9%) 1,000 mls @ 100 mls/hr IV .Q10H [facility] Last Admin: 03/19/21 08:32 Dose: Not Given Documented by: Loratadine (Loratadine 10 Mg Tab) 10 mg PO DAILY [facility] Last Admin: 03/19/21 09:01 Dose: 10 mg Documented by: Melatonin (Melatonin 5 Mg Tablet) 5 mg PO HS [facility] Last Admin: 03/19/21 20:50 Dose: 5 mg Documented by: Naloxone HCl (Naloxone 0.4 Mg/Ml 1 Ml Vial) 0.2 mg IV Q2M PRN PRN Reason: Opioid Reversal Ondansetron HCl (Ondansetron 4 Mg/2 Ml Vial) 4 mg IVP Q8HR PRN PRN Reason: Nausea And Vomiting Zinc Sulfate (Zinc Sulfate 220 Mg Cap) 220 mg PO DAILY [facility] Last Admin: 03/19/21 09:01 Dose: 220 mg Documented by: PHYSICAL EXAMINATION: GENERAL: The patient is alert and oriented x3, not in any acute distress. Well developed, well nourished. Ill-appearing HEENT: Pupils are round and equally reacting to light. EOMI. No scleral icterus. No conjunctival pallor. Normocephalic, atraumatic. No pharyngeal erythema. No thyromegaly. CARDIOVASCULAR: S1 and S2 present. No murmurs, rubs, or gallops. PULMONARY: Chest is clear to auscultation, no wheezing or crackles. ABDOMEN: Soft, nontender, nondistended, normoactive bowel sounds. No palpable organomegaly. MUSCULOSKELETAL: No joint swelling or deformity. EXTREMITIES: No cyanosis, clubbing, or pedal edema. NEUROLOGICAL: Gross neurological examination did not reveal any focal deficits. SKIN: No rashes. Assessment and plan: -Acute hypoxic respiratory failure secondary to Covid 19 pneumonia; patient maintained on Decadron, vitamin C, vitamin D and zinc. Out of the window for Remdesivir. Pulmonary consulted -Gastroesophageal reflux disease -Hypertension -Hypovolemic hyponatremia improving on IV fluids and will continue -DVT prophylaxis: subq lovenox BID -GI prophylaxis -full code Objective - Vital Signs Vital signs: Vital Signs Temp 102.8 F H 03/19/21 08:33 Pulse 78 03/19/21 08:33 Resp 18 03/19/21 08:33 BP 134/79 03/19/21 08:33 Pulse Ox 93 L 03/19/21 08:33 Intake & Output 03/18/21 03/19/21 03/19/21 18:59 06:59 18:59 Weight 86.183 kg Other: Voiding Method Toilet # Voids 1 1 # Bowel Movements 1 - Labs CBC & Chem 7: 03/19/21 08:26 03/19/21 08:26
[2021-03-20] MEDS: SODIUM CHLORIDE 0.9% 1,000 ML IV SCH ×3 (03:49→17:32)
[2021-03-20] MEDS: GABAPENTIN 300 MG CAP PO SCH ×2 (08:12→20:19)
[2021-03-20] MEDS: ENOXAPARIN 40 MG/0.4 ML SYRINGE SQ SCH ×2 (08:12→20:19)
[2021-03-20] MEDS: ASCORBIC ACID 500 MG TAB PO SCH ×2 (08:12→20:20)
[2021-03-20] MEDS: PANTOPRAZOLE 40 MG/10 ML VIAL IVP SCH (08:12)
[2021-03-20] MEDS: DEXAMETHASONE SOD PHOSPHATE 10 MG/ML 1 ML VIAL IVP SCH (08:12)
[2021-03-20] MEDS: ZINC SULFATE 220 MG CAP PO SCH (08:12)
[2021-03-20] MEDS: ALBUTEROL HFA INHALER INHALATION PRN ×3 (08:49→16:26)
[2021-03-20 10:37] LABS: Basophils % (A) 0 %; Eosinophils % (A) 0 %; HCT 41.4 % (34.0-46.0); HGB 13.7 gm/dL (11.4-16.0); Lymphocytes # (A) 0.4 k/uL (1.0-4.8); Lymphocytes % (A) 7 %; MCH 29.2 pg (25.0-35.0); MCV 88.6 fL (80.0-100.0); Mean Platelet Volume 7.4; Monocytes # (A) 0.2 k/uL (0-1.0); Monocytes % (A) 3 %; Neutrophils # (A) 5.1 k/uL (1.3-7.7); Neutrophils % (A) 88 %; Platelet Count 205 k/uL (150-450); RBC 4.67 m/uL (3.80-5.40); RDW 13.2 % (11.5-15.5); WBC 5.8 k/uL (3.8-10.6)
[2021-03-20 11:04] LABS: African American GFR (CKD) >90 (>60 ml/min/1.73 sqM); Anion Gap 5 mmol/L; Blood Urea Nitrogen 16 mg/dL (7-17); Calcium 8.1 mg/dL (8.4-10.2); Carbon Dioxide 28 mmol/L (22-30); Chloride 100 mmol/L (98-107); Glucose 150 mg/dL (74-99); Non-African American GFR(CKD) 85 (>60 ml/min/1.73 sqM); Potassium 4.3 mmol/L (3.5-5.1); Sodium 133 mmol/L (137-145)
--- NOTE | 2021-03-20 14:45 | P.PN ---
Subjective Progress Note Date: 03/20/21 10-year-old Female Came in with Comments of a Cough Shortness of Has Been Going on for about 12 Days and Patient Was Diagnosed with Covid 19 about a Week Ago. Patient Has Body Aches Generalized Weakness Doesn't Have Any Fever Denied Any Diarrhea or Nausea Vomiting. Patient Was Not Vaccinated for Covid 19. Serum Sodium Is 128 D-Dimer Is 1.32. Patient is presently on 3 L of oxygen chest x- ray did not show any significant infiltrate 03/20/2021 Patient evaluated today resting in the bed. She states that she has more energy than yesterday but she still feels weak. She was able to ambulate without di fficulty per RN. She denies any nausea vomiting or she does report looser stools. She is requiring 2-3 L nasal cannula. She was hypoxic on room air in the high 80s. She was able to ambulate on a 3 L nasal cannula for saturations between 91-93%. Lungs are clear, patient has a mild congested cough. We would consider patient for discharge home tomorrow on oral Decadron, zinc and vitamin C if okay with pulmonary. We will repeat a chest x-ray tomorrow to ensure clearing of the lungs. Home oxygen will be set up today for possible discharge tomorrow. Vital signs today show temperature 97.8, heart rate 63, blood pressure 102/63 and she is 94% on 2 L nasal cannula resting post ambulation. Jeffry liu is hoping to get a shower today we will see how she does. Labs today show a sodium 133, potassium 4.3, glucose 150. D-dimer is improving and is 0.61. ROS Constitutional: Denied any fever, reports fatigue. Cardio vascular: denied any chest pain, palpitations Gastrointestinal denied any nausea vomiting Pulmonary: Reports shortness of breath with ambulation, none at rest, mild congested cough. Neurologic denied any new focal deficits All inpatient medications were reviewed and appropriate changes in these medications as dictated in the interval history and assessment and plan. PHYSICAL EXAMINATION: GENERAL: The patient is alert and oriented x3, not in any acute distress. Well developed, well nourished. HEENT: Pupils are round and equally reacting to light. EOMI. No scleral icterus. No conjunctival pallor. Normocephalic, atraumatic. No pharyngeal erythema. No thyromegaly. CARDIOVASCULAR: S1 and S2 present. No murmurs, rubs, or gallops. PULMONARY: Chest is clear to auscultation, no wheezing or crackles. ABDOMEN: Soft, nontender, nondistended, normoactive bowel sounds. No palpable organomegaly. MUSCULOSKELETAL: No joint swelling or deformity. EXTREMITIES: No cyanosis, clubbing, or pedal edema. NEUROLOGICAL: Gross neurological examination did not reveal any focal deficits. SKIN: No rashes. Assessment and plan -Acute hypoxic respiratory failure secondary to Covid 19 pneumonia patient will be continued on Decadron, vitamin C, vitamin D. Patient doing well on 2-3 L NC. Patient is able to ambulate for short duration on nasal cannula, she will require home oxygen. -Gastroesophageal reflux disease -Hypertension -Hypovolemic hyponatremia, door to poor oral intake. DVT prophylaxis: Lovenox BID Plan Continue IV fluids Recheck labs tomorrow Pulmonary consultation PT/OT consultation Increase activity as tolerated Encourage oral intake. Objective - Vital Signs Vital signs: Vital Signs Temp 97.8 F 03/20/21 10:13 Pulse 63 03/20/21 10:13 Resp 18 03/20/21 10:13 BP 102/63 03/20/21 10:13 Pulse Ox 94 L 03/20/21 10:13 Intake & Output 03/19/21 03/20/21 03/20/21 18:59 06:59 18:59 Weight 86.183 kg Other: Voiding Method Toilet Toilet # Voids 1 2 - Labs CBC & Chem 7: 03/20/21 10:05 03/20/21 10:05 Labs: Abnormal Lab Results - Last 24 Hours (Table) 03/20/21 03/20/21 03/20/21 Range/Units 10:05 10:05 10:05 Lymphocytes # 0.4 L (1.0-4.8) k/uL D-Dimer 0.61 H (<0.60) mg/L FEU Sodium 133 L (137-145) mmol/L Glucose 150 H (74-99) mg/dL Calcium 8.1 L (8.4-10.2) mg/dL
--- NOTE | 2021-03-20 15:20 | P.CNPUL ---
History of Present Illness Consult date: 03/20/21 Requesting physician: Beth Camp Reason for consult: dyspnea, hypoxemia, abnormal CXR/CT Chief complaint: Shortness of breath, cough, congestion History of present illness: This is a very pleasant 80-year-old female patient with a history of hypertension and osteoarthritis, gastroesophageal reflux disease and depression. Lifelong nonsmoker. She presented here to the emergency room on 03/17/2021 with complaints of increasing shortness of breath cough and congestion. She had been tested positive for CoVID the week prior to her arrival. Symptoms have been about 12 days prior to her arrival. She did not receive monoclonal antibodies. She was initiated on steroids and antibiotics by her PCP Dr. Fox. Chest x-ray revealed some mild nonspecific lung markings. No significant in filtrates or consolidations. She is seen today in consultation on the regular medical floor. She is resting comfortably in bed. Maintaining good O2 saturations in the 90s on 2 L/m per nasal cannula. She's been initiated on Decadron, Lovenox, vitamin supplements. White count 5.8. Hemoglobin 13.7. Lymphocytes 0.4. D-dimer 0.61. Sodium 133. Potassium 4.3. Creatinine 0.65. Glucose 150. Coronal virus by PCR positive. Review of Systems REVIEW OF SYSTEMS: CONSTITUTIONAL: Denies any recent significant weight loss or weight gain. EYES: Denies change in vision. EARS, NOSE, MOUTH, THROAT: Denies headaches, denies sore throat. CARDIOVASCULAR: Denies chest pain, palpitations or syncopal episodes. RESPIRATORY: Positive for shortness of breath, cough, congestion no hemoptysis. GASTROINTESTINAL: Denies change in appetite, denies abdominal pain GENITOURINARY: Denies hematuria, denies infections. MUSKULOSKELETAL: Denies pain, denies swelling. INTEGUMENTARY: Denies rash, denies eczema. NEUROLOGICAL: Denies recent memory loss, no recent seizure activity. PSYCHIATRIC: Denies anxiety, denies depression. HEMATOLOGIC/LYMPHATIC: Denies anemia, denies enlarged lymph nodes. Past Medical History Past Medical History: Eye Disorder, GERD/Reflux, Hypertension, Osteoarthritis (OA), Renal Disease Additional Past Medical History / Comment(s): Hiatal hernia, leaky heart valve, nephrolithiasis-passed stones on her own, bilateral macular degeneration, neuropathy bilateral calves, skin cancer. History of Any Multi-Drug Resistant Organisms: None Reported Past Surgical History: Adenoidectomy, Cholecystectomy, Joint Replacement, Orthopedic Surgery, Tonsillectomy Additional Past Surgical History / Comment(s): Bilateral total hip arthroplasties, R foot bunionectomy, R wrist carpal tunnel release, L eye reconstructive surgery, skin cancer removals, D&C, EGD, colonoscopy, bilateral cataract removals. Past Anesthesia/Blood Transfusion Reactions: No Reported Reaction Smoking Status: Never smoker - Past Family History Father Family Medical History: Coronary Artery Disease (CAD), Myocardial Infarction (SD) Additional Family Medical History / Comment(s): Father had a massive SD at the age of 61 yrs and during CABG surgery. Mother Family Medical History: Cancer Additional Family Medical History / Comment(s): Hodgkins Medications and Allergies Home Medications Medication Instructions Recorded Confirmed Type Loratadine [Claritin] 10 mg PO DAILY 03/06/20 03/17/21 History lisinopriL [Zestril] 20 mg PO DAILY #0 10/27/20 03/17/21 Rx Albuterol Inhaler [Ventolin Hfa 1 puff INHALATION RT-Q4H PRN 03/17/21 03/17/21 History Inhaler] Azithromycin [Zithromax Z-pack (6 See Taper PO DAILY 03/17/21 03/17/21 History tabs)] Gabapentin 600 mg PO BID 03/17/21 03/17/21 History dexAMETHasone 6 mg PO DAILY 03/17/21 03/17/21 History Allergies Allergy/AdvReac Type Severity Reaction Status Date / Time No Known Allergies Allergy Verified 03/17/21 18:26 Physical Exam Vitals: Vital Signs Temp Pulse Resp BP Pulse Ox 03/20/21 14:00 98.5 F 68 18 131/84 96 03/20/21 10:13 97.8 F 63 18 102/63 94 L 03/20/21 05:32 97.6 F 53 L 121/73 98 03/20/21 02:12 97.8 F 53 L 111/71 98 03/19/21 21:52 97.9 F 63 99/58 96 03/19/21 20:00 63 17 03/19/21 17:03 97.7 F 79 17 104/71 90 L Intake and Output 03/20/21 03/20/2121 06:59 14:59 22:59 Other: Voiding Method Toilet # Voids 2 GENERAL EXAM: Alert, pleasant 80-year-old female patient, on 2 L nasal cannula, fairly comfortable in no apparent distress. HEAD: Normocephalic. EYES: Normal reaction of pupils, equal size. NOSE: Clear with pink turbinates. THROAT: No erythema or exudates. NECK: No masses, no JVD. CHEST: No chest wall deformity. LUNGS: Equal air entry with faint crackles in the posterior bases. CVS: S1 and S2 normal with no audible murmur, regular rhythm. ABDOMEN: No hepatosplenomegaly, normal bowel sounds, no guarding or rigidity. SPINE: No scoliosis or deformity SKIN: No rashes CENTRAL NERVOUS SYSTEM: No focal deficits, tone is normal in all 4 extremities. EXTREMITIES: There is no peripheral edema. No clubbing, no cyanosis. Peripheral pulses are intact. Results - Laboratory Findings CBC and BMP: 03/20/21 10:05 03/20/21 10:05 PT/INR, D-dimer PT 10.1 sec (9.0-12.0) 03/17/21 18:36 INR 0.9 (<1.2) 03/17/21 18:36 D-Dimer 0.61 mg/L FEU (<0.60) H 03/20/21 10:05 Abnormal lab findings: Abnormal Labs 03/17/21 03/17/21 03/17/21 18:36 18:36 18:36 Lymphocytes # Lymphocytes # (Manual) 0.38 L Myelocytes # (Manual) 0.08 H D-Dimer 1.32 H Sodium Chloride Glucose Calcium ALT Total Protein Albumin SARS-CoV-2 (PCR) Detected A 03/17/21 03/19/21 03/20/21 18:36 08:26 10:05 Lymphocytes # 0.4 L Lymphocytes # (Manual) Myelocytes # (Manual) D-Dimer Sodium 128 L 131 L Chloride 95 L Glucose 115 H Calcium 8.0 L 8.1 L ALT 44 H Total Protein 6.1 L Albumin 3.4 L SARS-CoV-2 (PCR) 03/20/21 03/20/21 10:05 10:05 Lymphocytes # Lymphocytes # (Manual) Myelocytes # (Manual) D-Dimer 0.61 H Sodium 133 L Chloride Glucose 150 H Calcium 8.1 L ALT Total Protein Albumin SARS-CoV-2 (PCR) - Diagnostic Findings Chest x-ray: image reviewed Assessment and Plan Assessment: 1 Acute hypoxemic respiratory failure secondary to COVID-19 pneumonia, currently on 2 L nasal cannula. Not vaccinated. Outside the window for Remdesivir. Not qualify per Baricitinib. 2 History of hypertension 3 Osteoarthritis. 4 Gastroesophageal reflux disease Plan: The patient was seen and evaluated by Dr. Emerson Chest x-ray and labs reviewed Continue Decadron, Lovenox, vitamin supplements Titrate down the FiO2 as tolerated Follow-up chest x-ray and inflammatory markers in the a.m. We will continue to follow make further recommendations based on her clinical status. Time with Patient: Greater than 30
[2021-03-20] MEDS: MELATONIN 5 MG TABLET PO SCH (20:19)
--- NOTE | 2021-03-21 07:12 | XR ---
EXAMINATION TYPE: XR chest 1V portable DATE OF EXAM: 03/21/2021 COMPARISON: 03/17/2021 HISTORY: Covid pneumonia TECHNIQUE: Single frontal view of the chest is obtained. FINDINGS: There is mild diffuse interstitial edema which appears unchanged from the prior study when allowing for differences in technique. The heart size normal. There is no large pleural effusion and no pneumothorax. The osseous structures are intact. IMPRESSION: No significant interval change in the mild interstitial opacity.
[2021-03-21] MEDS: LORATADINE 10 MG TAB PO SCH (09:10)
[2021-03-21] MEDS: GABAPENTIN 300 MG CAP PO SCH (09:10)
[2021-03-21] MEDS: ASCORBIC ACID 500 MG TAB PO SCH (09:10)
[2021-03-21] MEDS: PANTOPRAZOLE 40 MG/10 ML VIAL IVP SCH (09:10)
[2021-03-21] MEDS: DEXAMETHASONE SOD PHOSPHATE 10 MG/ML 1 ML VIAL IVP SCH (09:10)
[2021-03-21] MEDS: ZINC SULFATE 220 MG CAP PO SCH (09:10)
[2021-03-21] MEDS: ENOXAPARIN 40 MG/0.4 ML SYRINGE SQ SCH (09:10)
[2021-03-21] MEDS: ALBUTEROL HFA INHALER INHALATION PRN ×2 (10:06→16:45)
[2021-03-21 10:52] VITALS: RESP 17; TEMP 98.2
[2021-03-21 12:46] LABS: African American GFR (CKD) 98.4 (60.0-200.0); Anion Gap 9.2 mmol/L (10.00-18.00); BUN/Creat Ratio 19.41 Ratio (12.00-20.00); Blood Urea Nitrogen 12.4 mg/dL (9.0-27.0); C Reactive Protein 3.4 mg/dL (0.00-0.80); Carbon Dioxide 24.4 mmol/L (20.0-27.5); Non-African American GFR(CKD) 84.9 (60.0-200.0)
[2021-03-21 14:54] VITALS: BP 105/66; PULSE 76
--- NOTE | 2021-03-21 16:22 | P.PN ---
Subjective Progress Note Date: 03/21/21 Principal diagnosis: CoVID pneumonia This is a very pleasant 80-year-old female patient with a history of hypertension and osteoarthritis, gastroesophageal reflux disease and depression. Lifelong nonsmoker. She presented here to the emergency room on 03/17/2021 with complaints of increasing shortness of breath cough and congestion. She had been tested positive for CoVID the week prior to her arrival. Symptoms have been about 12 days prior to her arrival. She did not receive monoclonal antibodies. She was initiated on steroids and antibiotics by her PCP Dr. Fox. Chest x-ray revealed some mild nonspecific lung markings. No significant infiltrates or consolidations. She is seen today in consultation on the regular medical floor. She is resting comfortably in bed. Maintaining good O2 saturations in the 90s on 2 L/m per nasal cannula. She's been initiated on Decadron, Lovenox, vitamin supplements. White count 5.8. Hemoglobin 13.7. Lymphocytes 0.4. D-dimer 0.61. Sodium 133. Potassium 4.3. Creatinine 0.65. Glucose 150. Coronal virus by PCR positive. The patient is seen today 03/21/2021 in follow-up on the regular medical floor. Awake and alert in no acute distress. Currently resting comfortably in bed. She is maintaining O2 saturations in the mid 90s on 2 L/m per nasal cannula. She's been afebrile. Hemodynamically stable. X-ray continues to show mild diffuse pulmonary infiltrates. No worsening compared to previous on 03/17/2021. D-dimer 0.85. Sodium 134. Potassium 4.0. Creatinine 0.6. LDH 271. C- reactive protein 3.4. She is quite adamant about going home today. Objective - Vital Signs Vital signs: Vital Signs Temp 98.2 F 03/21/21 14:00 Pulse 76 03/21/21 14:00 Resp 17 03/21/21 14:00 BP 105/66 03/21/21 14:00 Pulse Ox 97 03/21/21 14:00 Intake & Output 03/20/21 03/21/21 03/21/21 18:59 06:59 18:59 Intake Total 1200 Balance 1200 Intake: IV 1200 Sodium Chloride 0.9% 1, 1200 000 ml @ 100 mls/hr IV . Q10H [facility] Rx#:[id number] Other: Voiding Method Toilet Toilet Toilet # Voids 2 # Bowel Movements 1 - Exam GENERAL EXAM: Alert, pleasant 80-year-old female, on 2 L nasal cannula, fairly comfortable in no apparent distress. HEAD: Normocephalic. EYES: Normal reaction of pupils, equal size. NOSE: Clear with pink turbinates. THROAT: No erythema or exudates. NECK: No masses, no JVD. CHEST: No chest wall deformity. LUNGS: Equal air entry with faint bibasilar crackles CVS: S1 and S2 normal with no audible murmur, regular rhythm. ABDOMEN: No hepatosplenomegaly, normal bowel sounds, no guarding or rigidity. SPINE: No scoliosis or deformity SKIN: No rashes CENTRAL NERVOUS SYSTEM: No focal deficits, tone is normal in all 4 extremities. EXTREMITIES: There is no peripheral edema. No clubbing, no cyanosis. Peripheral pulses are intact. - Labs CBC & Chem 7: 03/20/21 10:05 03/21/21 07:14 Labs: Abnormal Lab Results - Last 24 Hours (Table) 03/21/21 03/21/21 Range/Units 07:14 07:14 D-Dimer 0.85 H (<0.60) mg/L FEU Sodium 134 L (135-145) mmol/L Anion Gap 9.20 L (10.00-18.00) mmol/L Calcium 8.0 L (8.7-10.3) mg/dL Lactate Dehydrogenase 271 H (120-246) U/L C-Reactive Protein 3.40 H (0.00-0.80) mg/dL Assessment and Plan Assessment: 1 Acute hypoxemic respiratory failure secondary to COVID-19 pneumonia, currently on 2 L nasal cannula. Not vaccinated. Outside the window for Remdesivir. Not qualifying for Baricitinib. 2 History of hypertension 3 Osteoarthritis. 4 Gastroesophageal reflux disease Plan: The patient was seen and evaluated Chest x-ray and labs reviewed Cleared for discharge from the pulmonary standpoint per her request We'll require home oxygen at 2 L/m per nasal cannula Encouraged to return if her symptoms should worsen Complete a 10 day course of Decadron Follow up closely with her PCP
--- NOTE | 2021-03-21 23:22 | P.DS ---
Providers Date of admission: 03/17/21 20:12 Attending physician: Karl Monterroso Consults: 03/20/21 00:59 Consult Physician Urgent Consulting Provider: Benjamín Emerson Consult Reason/Comments: covid Do you want consulting provider notified?: Yes Primary care physician: Ruddy Monte Hospital Course: Final Diagnosis Acute hypoxic respiratory failure secondary to covid 19 pneumonia, stable on 2L oxygen via nasal cannula Fatigue secondary to above Gastroesophageal reflux disease Hypertension Hypervolemic Hyponatremia due to poor oral intake Discharge Disposition Patient discharged home on 2L nasal cannula, discharged on 1 more week of lovenox and short decadron taper as well as to continue Zinc, vitamins. Repeat labs outpatient. Hospital Course This is a pleasant 80 year old female who presents to the hospital for cough, shortness of breath ongoing for about 12 days secondary to COVID 19, diagnosed 1 week ago. Main complaints include body aches, generalized weakness. Patient does not have a fever, she denies nausea, vomiting, and diarrhea. Patient was not vaccinated for Covid 19. On admission serum sodium is 128, D-dimer 1.32. Patient was started on 3L NC. Chest xray on admission shows no suspicious infiltrates or consolidations. Mild nonspecific lung markings are present. Follow-up can be performed as clinically indicated. Patient was admitted to the hospital and pulmonary services consulted. We repeated the chest xray on 03/21 and there was no interval change. Patient has been able to ambulate for short distances. She did not pass her walking oxygen test, Oxygenation was 86% on room air, however, she was saturing well on 2-3L nasal cannula and we set patient up for discharge on home oxygen. Patient was outside of the window for remdesivir infusion, and was not a candidate for Baricitinib. There was no elevated white count this admission, serum sodium improved to 134, troponin negative, blood sugars stable in the 100's despite decadron, LDH elevated at 271, CRP elevated at 3.40. Vitals include temp of 98.2, heart rate 76, blood pressure 105/66, and 97% on 2L NC. 03/21/2021 Patient evaluated today resting in bed. Main complaint is fatigue. She is able to ambulate the restroom and back on nasal cannula. She lives with her and son, and her daughter she states is able to help out if needed. She has good support system at home. Additional family members in the home have recovered well from COVID 19. Unfortunately, she did not get tested soon enough after symptom onset to qualify for monoclonal antibodies. Otherwise, she is stable on oxygen and will be discharged home on 2L nasal cannula with the above mentioned recommendations. Lungs are clear, S1 S2 auscultated, no peripheral edema, focal neurological exam is negative. Vitals stable. Please see medication reconciliation for a list of current medications. Thank you for allowing us to participate in the care of this patient. Patient Condition at Discharge: Fair Plan - Discharge Summary Discharge Rx Participant: No New Discharge Prescriptions: New Ascorbic Acid [Vitamin C] 500 mg PO BID #60 tab Dexamethasone [Decadron] 4 mg PO DAILY 3 Days #3 tablet Enoxaparin [Lovenox] 40 mg SQ DAILY #7 each Melatonin 5 mg PO HS tablet Zinc Sulfate [Orazinc] 220 mg PO DAILY #30 cap Acetaminophen Tab [Tylenol] 650 mg PO Q6HR PRN tab PRN Reason: Mild Pain Or Fever > 100.5 Dexamethasone [Decadron] 6 mg PO DAILY 3 Days #3 tablet Famotidine [Pepcid] 20 mg PO BID #60 tablet Continue Loratadine [Claritin] 10 mg PO DAILY lisinopriL [Zestril] 20 mg PO DAILY #0 Albuterol Inhaler [Ventolin Hfa Inhaler] 1 puff INHALATION RT-Q4H PRN PRN Reason: Shortness Of Breath Gabapentin 600 mg PO BID Discontinued Azithromycin [Zithromax Z-pack (6 tabs)] See Taper PO DAILY dexAMETHasone 6 mg PO DAILY Discharge Medication List Loratadine [Claritin] 10 mg PO DAILY 03/06/20 [History] lisinopriL [Zestril] 20 mg PO DAILY #0 10/27/20 [Rx] Albuterol Inhaler [Ventolin Hfa Inhaler] 1 puff INHALATION RT-Q4H PRN 03/17/21 [History] Gabapentin 600 mg PO BID 03/17/21 [History] Acetaminophen Tab [Tylenol] 650 mg PO Q6HR PRN tab 03/21/21 [Rx] Ascorbic Acid [Vitamin C] 500 mg PO BID #60 tab 03/21/21 [Rx] Dexamethasone [Decadron] 4 mg PO DAILY 3 Days #3 tablet 03/21/21 [Rx] Dexamethasone [Decadron] 6 mg PO DAILY 3 Days #3 tablet 03/21/21 [Rx] Enoxaparin [Lovenox] 40 mg SQ DAILY #7 each 03/21/21 [Rx] Famotidine [Pepcid] 20 mg PO BID #60 tablet 03/21/21 [Rx] Melatonin 5 mg PO HS tablet 03/21/21 [Rx] Zinc Sulfate [Orazinc] 220 mg PO DAILY #30 cap 03/21/21 [Rx] Follow up Appointment(s)/Referral(s): Mell Fox MD [Primary Care Provider] - 1-2 days Benjamín Emerson MD [STAFF PHYSICIAN] - 1 Week Ambulatory/Diagnostic Orders: Basic Metabolic Panel [LAB.AMB] Time Frame: 3 Days, Location: None Selected Complete Blood Count w/diff [LAB.AMB] Time Frame: 3 Days, Location: None Selected Patient Instructions/Handouts: Enoxaparin (By injection), Coronavirus Disease 2019 (COVID-19), Using Oxygen at Home (DC), Using Oxygen at Home (GEN) Activity/Diet/Wound Care/Special Instructions: Discharged on home oxygen Patient to call [facility] when she gets home Call [facility] to notify of discharge Discharge Disposition: HOME WITH HOME HEALTH SERVICES
== END 2021-03-21 17:11 | disposition home health service (06) | DRG 177 ==
LOC: EC 17:40 → 4SSUR 20:12
PROVIDERS: ADMIT Hospitalist; ATTEND Hospitalist
DX: U07.1 COVID-19 (principal); J96.01 Acute respiratory failure with hypoxia; J12.82 Pneumonia due to coronavirus disease 2019; E87.1 Hypo-osmolality and hyponatremia; K21.9 Gastro-esophageal reflux disease without esophagitis; M19.90 Unspecified osteoarthritis, unspecified site; I10 Essential (primary) hypertension; E87.70 Fluid overload, unspecified; E86.1 Hypovolemia; Z79.899 Other long term (current) drug therapy; Z80.7 Family history of other malignant neoplasms of lymphoid, hematopoietic and related tissues; Z82.49 Family history of ischemic heart disease and other diseases of the circulatory system; Z85.828 Personal history of other malignant neoplasm of skin; Z87.442 Personal history of urinary calculi; Z96.643 Presence of artificial hip joint, bilateral; F32.A Depression, unspecified; G62.9 Polyneuropathy, unspecified; R79.82 Elevated C-reactive protein (CRP); R74.02 Elevation of levels of lactic acid dehydrogenase [LDH]; K44.9 Diaphragmatic hernia without obstruction or gangrene
CPT/HCPCS: 36415; 71045; 80048; 80053; 83615; 83735; 83880; 84484; 85025; 85027; 85379; 85610; 85730; 86140; 87636; 93005; 94640; 99285

== ENCOUNTER → 2021-04-22 | Outpatient (CLI) | payer MEDICARE ==
--- NOTE | 2021-04-22 09:53 | US ---
EXAMINATION TYPE: US liver DATE OF EXAM: 04/22/2021 COMPARISON: Correlation 09/18/2017 CLINICAL HISTORY: 80-year-old female R94.5 Abnormal Liver Function Test. Elevated liver enzymes TECHNIQUE: Multiple sonographic images of the right upper quadrant are obtained. FINDINGS: EXAM MEASUREMENTS: Liver Length: 14.3 cm CBD: 0.4 cm Right Kidney: 9.6 x 4.2 x 4.9 cm Pancreas: Most of the pancreas is visualized and shows no gross abnormality. Prominent but nondilate d main pancreatic duct at 2 mm. Liver: mildly heterogeneous Gallbladder: surgically absent Evidence for sonographic Mercer's sign: no CBD: visualized portions wnl, limited by overlying bowel gas Right Kidney: 2.2cm hypoechoic area centrally upper pole. Internal echoes are felt to be artifactual . No hydronephrosis. IMPRESSION: 1. Incidental 2.2 cm parapelvic cyst upper right kidney versus 2.[address] from 2018. 2. Some heterogeneity of the liver may be on a technical basis due to large patient body habitus. Cor relate exclude nonspecific hepatocellular disease. 3. No biliary ductal dilatation. Status post cholecystectomy.
== END | disposition home or self-care (01) ==
LOC: RADUSWWP 06:56
PROVIDERS: ATTEND Internal Medicine
DX: R94.5 Abnormal results of liver function studies (principal); Z90.49 Acquired absence of other specified parts of digestive tract
CPT/HCPCS: 76705

== ENCOUNTER → 2021-04-22 | Outpatient (CLI) | payer MEDICARE | END | disposition home or self-care (01) | LOC: RADUSWWP 07:37 | PROVIDERS: ATTEND Internal Medicine | DX: M79.661 Pain in right lower leg (principal) | CPT/HCPCS: 93922 ==

== ENCOUNTER 2021-09-05 18:07 | Emergency (ER) | payer MEDICARE ==
[2021-09-05 18:49] VITALS: BP 118/72; PULSE 69; RESP 16; TEMP 98
--- NOTE | 2021-09-05 19:31 | XR ---
Result: History: Pain. Comparison: None available. Technique: 3 views of the right wrist. Findings: There is moderately impacted and dorsally displaced fracture of the distal radius metaphysis. There i s also impacted fracture of the distal ulnar metaphysis involving the styloid process. No evidence of dislocation. There is moderate osteoarthritis of the thumb basal joint. Impression: Distal radius and ulna fractures.
[2021-09-05] MEDS ORDERED: LIDOCAINE 1% PF 10 MG/ML (5 ML AMP) SQ STA (19:58)
--- NOTE | 2021-09-05 20:00 | ED ---
Fall HPI - General Chief Complaint: Fall Stated Complaint: Fall/wrist injury Time Seen by Provider: 09/05/21 19:44 Source: patient, family Mode of arrival: wheelchair - History of Present Illness Initial Comments: Karo is a 80-year-old female presents the ER for evaluation of right wrist, right thigh and left foot pain. Patient had a mechanical trip and fall, reports she rolled her left ankle and fell onto her right side. She is obvious deformity of her right wrist. She states she feels that she pulled a muscle in her right thigh however she had that hip replaced last year and wanted to have x-rays make sure she didn't do any damage. - Related Data Home Medications Medication Instructions Recorded Confirmed Loratadine [Claritin] 10 mg PO DAILY 03/06/20 03/17/21 Albuterol Inhaler [Ventolin Hfa 1 puff INHALATION RT-Q4H PRN 03/17/21 03/17/21 Inhaler] Gabapentin 600 mg PO BID 03/17/21 03/17/21 Previous Rx's Medication Instructions Recorded lisinopriL [Zestril] 20 mg PO DAILY #0 10/27/20 Acetaminophen Tab [Tylenol] 650 mg PO Q6HR PRN tab 03/21/21 Ascorbic Acid [Vitamin C] 500 mg PO BID #60 tab 03/21/21 Dexamethasone [Decadron] 4 mg PO DAILY 3 Days #3 tablet 03/21/21 Dexamethasone [Decadron] 6 mg PO DAILY 3 Days #3 tablet 03/21/21 Enoxaparin [Lovenox] 40 mg SQ DAILY #7 each 03/21/21 Famotidine [Pepcid] 20 mg PO BID #60 tablet 03/21/21 Melatonin 5 mg PO HS tablet 03/21/21 Zinc Sulfate [Orazinc] 220 mg PO DAILY #30 cap 03/21/21 Allergies Allergy/AdvReac Type Severity Reaction Status Date / Time No Known Allergies Allergy Verified 09/05/21 18:49 Review of Systems ROS Statement: Those systems with pertinent positive or pertinent negative responses have been documented in the HPI. ROS Other: All systems not noted in ROS Statement are negative. Past Medical History Past Medical History: Eye Disorder, GERD/Reflux, Hypertension, Osteoarthritis (OA), Renal Disease Additional Past Medical History / Comment(s): Hiatal hernia, leaky heart valve, nephrolithiasis-passed stones on her own, bilateral macular degeneration, neuropathy bilateral calves, skin cancer. History of Any Multi-Drug Resistant Organisms: None Reported Past Surgical History: Adenoidectomy, Cholecystectomy, Joint Replacement, Orthopedic Surgery, Tonsillectomy Additional Past Surgical History / Comment(s): Bilateral total hip arthroplasties, R foot bunionectomy, R wrist carpal tunnel release, L eye reconstructive surgery, skin cancer removals, D&C, EGD, colonoscopy, bilateral cataract removals. Past Anesthesia/Blood Transfusion Reactions: No Reported Reaction Past Psychological History: Anxiety Smoking Status: Never smoker Past Alcohol Use History: None Reported Past Drug Use History: None Reported - Past Family History Father Family Medical History: Coronary Artery Disease (CAD), Myocardial Infarction (RI) Additional Family Medical History / Comment(s): Father had a massive RI at the age of 61 yrs and during CABG surgery. Mother Family Medical History: Cancer Additional Family Medical History / Comment(s): Hodgkins General Exam - General Exam Comments Initial Comments: Physical Exam GENERAL: Patient is well-developed and well-nourished. Appears uncomfortable HENT: Normocephalic, Atraumatic. EYES: PERRL, EOMI PULMONARY: Unlabored respirations. CARDIOVASCULAR: RRR Warm and well perfused extremities ABDOMEN: Non-distended SKIN: Abrasion on the wrist, no lacerations, no evidence of open fracture : Deferred NEUROLOGIC: Alert and oriented Normal speech antalgic gait, pain in left foot MUSCULOSKELETAL: Obvious deformity of right wrist PSYCHIATRIC: No SI/HI Limitations: no limitations Course Vital Signs 09/05/21 18:47 Temperature 98 F Pulse Rate 69 Respiratory 16 Rate Blood Pressure 118/72 O2 Sat by Pulse 96 Oximetry Procedures - Nerve Block Consent Obtained: verbal consent Local Anesthetic Used: Marcaine 0.25% Side: right Nerve Blocks: hematoma block Procedure Successful: Yes Complications: none Patient Tolerated Procedure: well, no complications - Orthopedic Fracture Reduction Fracture #1 Consent Obtained: verbal consent Side: right Fracture Reduction Location: radius, ulna Analgesia: hematoma block Technique: direct manipulation Post-Reduction Neuro Exam: intact Post-Reduction Vascular Exam: intact Splint Applied: Yes (joseph) Patient Tolerated Procedure: well Medical Decision Making - Medical Decision Making Patient was seen and evaluated, history is obtained from patient, x-rays were obtained patient does have a fracture at the base of the left fifth metatarsal, management options including walking boot were discussed however patient daughter have concern that this would increase her fall risk and would prefer she just where her normal orthotic shoes. I did offer the patient hematoma block versus sedation I do feel hematoma block is safe for her age and she was agreeable. Hematoma block was moderately successful, patient still had some pressure but no sharp pain. Were able to manipulate and apply traction to the wrist and placed a sugar tong splint. Patient tolerated this well she'll follow up with her orthopedic surgeon Dr. Alvarado later this week for reevaluation and casting. Disposition Clinical Impression: Fall, Closed fracture distal radius and ulna, Fracture of base of fifth metatarsal bone Disposition: HOME SELF-CARE Condition: Stable Instructions (If sedation given, give patient instructions): How to Use a Sling (ED) Is patient prescribed a controlled substance at d/c from ED?: No Referrals: Mell Fox MD [Primary Care Provider] - 1-2 days Skyler Weaver DO [Doctor of Osteopathic Medicine] - 1-2 days
[2021-09-05] MEDS ORDERED: BUPIVACAINE (PF) 0.25% 30 ML VIAL SQ STA (20:03)
--- NOTE | 2021-09-05 20:40 | XR ---
EXAMINATION TYPE: XR chest 2V DATE OF EXAM: 09/05/2021 COMPARISON: 03/21/2021 HISTORY: Pain status post fall TECHNIQUE: Frontal and lateral views of the chest are obtained. FINDINGS: There is mild right basilar atelectasis versus scarring. No significant infiltrate, consol idation pleural effusion, or pneumothorax seen. The cardiac silhouette size is within normal limits. No displaced fracture. Artifact about the left lower chest corresponds to external clothing. IMPRESSION: No acute cardiopulmonary process.
--- NOTE | 2021-09-05 20:41 | XR ---
Result: History: Pain. Comparison: None available. Technique: 3 views of the left foot. Findings: The bone mineralization is appropriate for age. There is nondisplaced fracture of the fifth metatarsal base. There are scattered mild degenerative ch anges. No evidence of dislocation. Hallux valgus seen. Impression: Fifth metatarsal base fracture.
--- NOTE | 2021-09-05 20:42 | XR ---
Result: History: Pain status post fall. Comparison: None available. Technique: Frontal and lateral radiographs of the right hip. Findings: The bone mineralization is appropriate for age. There is no acute fracture or dislocation. Prior right hip arthroplasty seen. No evidence of hardware complication. Impression: No acute osseous abnormality.
[2021-09-05] MEDS ORDERED: ACET/COD 300 MG/30 MG STARTER PACK 6 TAB BTL PO STA (21:40)
[2021-09-05] MEDS ORDERED: ONDANSETRON 4 MG ODT STARTER PACK 2 TAB BTL PO STA (21:40)
== END 2021-09-05 22:06 | disposition home or self-care (01) ==
LOC: EC 18:07
DX: S52.601A Unspecified fracture of lower end of right ulna, initial encounter for closed fracture (principal); S52.501A Unspecified fracture of the lower end of right radius, initial encounter for closed fracture; S92.352A Displaced fracture of fifth metatarsal bone, left foot, initial encounter for closed fracture; I10 Essential (primary) hypertension; M19.90 Unspecified osteoarthritis, unspecified site; Z79.899 Other long term (current) drug therapy; W01.0XXA Fall on same level from slipping, tripping and stumbling without subsequent striking against object, initial encounter
CPT/HCPCS: 73502; 73110; 73630; 71046; 99284; 25605; J2001; S0119

== ENCOUNTER → 2021-09-15 | Day surgery (SDC) | payer MEDICARE ==
--- NOTE | 2021-09-14 09:21 | P.HPOR ---
History of Present Illness H&P Date: 09/14/21 Chief Complaint: Right intra-articular distal radius fracture, 3 part Subjective: This is a 80 year old female that presents today for initial evaluation regarding a right wrist injury that occurred on 09/05/21 when she fell in her driveway. She was seen at an outside hospital and placed in a splint, no reduction was performed and she has been non weight bearing. She has a history of a open carpal tunnel release performed on this hand. She has no other areas of pain. She has some occasional paresthesias in the small finger and thumb. Physical Examination: RUE: AIN/PIN/Radial/Ulnar/Median motor intact. Radial/Ulnar/Median SILT. 2+/4 Radial/Ulnar pulses palpated. 5/5 APB, 5/5 FDI. TTP over dorsal and volar distal radius with bruising and swelling present. Imaging: X-Rays of the right wrist demonstrate a comminuted intra-articular distal radius fracture with 40 degrees of dorsal angulation and 50% dorsal displacement. Non displaced ulnar head fracture Impression: 1.) Right intra-articular distal radius fracture, displaced. Plan: Diagnosis and treatment options were discussed with the patient. Due to patients imaging findings and her level of activity I recommend surgical intervention. Risks and benefit of surgery including bleeding, infection, damage to surrounding tissue, need for further surgery,residual numbness were discussed and the patient wished to go forward with surgery. She will be scheduled for a right distal radius ORIF. Labs/EKG are ordered and a new splint is placed. -Sharif Levi DO Orthopedic Hand/Upper Extremity Surgeon Past Medical History Past Medical History: Eye Disorder, GERD/Reflux, Hypertension, Osteoarthritis (OA), Renal Disease Additional Past Medical History / Comment(s): Hiatal hernia, leaky heart valve, nephrolithiasis-passed stones on her own, bilateral macular degeneration, neuropathy bilateral calves, skin cancer. History of Any Multi-Drug Resistant Organisms: None Reported Past Surgical History: Adenoidectomy, Cholecystectomy, Joint Replacement, Orthopedic Surgery, Tonsillectomy Additional Past Surgical History / Comment(s): Bilateral total hip arthroplasties, R foot bunionectomy, R wrist carpal tunnel release, L eye reconstructive surgery, skin cancer removals, D&C, EGD, colonoscopy, bilateral cataract removals. Past Anesthesia/Blood Transfusion Reactions: No Reported Reaction Past Psychological History: Anxiety Smoking Status: Never smoker Past Alcohol Use History: None Reported Past Drug Use History: None Reported - Past Family History Father Family Medical History: Coronary Artery Disease (CAD), Myocardial Infarction (NH) Additional Family Medical History / Comment(s): Father had a massive NH at the age of 61 yrs and during CABG surgery. Mother Family Medical History: Cancer Additional Family Medical History / Comment(s): Hodgkins Medications and Allergies Home Medications Medication Instructions Recorded Confirmed Type Loratadine [Claritin] 10 mg PO DAILY 03/06/20 03/17/21 History lisinopriL [Zestril] 20 mg PO DAILY #0 10/27/20 03/17/21 Rx Albuterol Inhaler [Ventolin Hfa 1 puff INHALATION RT-Q4H PRN 03/17/21 03/17/21 History Inhaler] Gabapentin 600 mg PO BID 03/17/21 03/17/21 History Acetaminophen Tab [Tylenol] 650 mg PO Q6HR PRN tab 03/21/21 Rx Ascorbic Acid [Vitamin C] 500 mg PO BID #60 tab 03/21/21 Rx Dexamethasone [Decadron] 4 mg PO DAILY 3 Days #3 tablet 03/21/21 Rx Dexamethasone [Decadron] 6 mg PO DAILY 3 Days #3 tablet 03/21/21 Rx Enoxaparin [Lovenox] 40 mg SQ DAILY #7 each 03/21/21 Rx Famotidine [Pepcid] 20 mg PO BID #60 tablet 03/21/21 Rx Melatonin 5 mg PO HS tablet 03/21/21 Rx Zinc Sulfate [Orazinc] 220 mg PO DAILY #30 cap 03/21/21 Rx Allergies Allergy/AdvReac Type Severity Reaction Status Date / Time No Known Allergies Allergy Verified 09/05/21 18:49 Physical Examination Osteopathic Statement: *. No significant issues noted on an osteopathic structural exam other than those noted in the History and Physical/Consult.
[2021-09-14 12:18] VITALS: BMI 27.9
[~2021-09-15] MED LIST changes: -ACETAMINOPHEN TAB 500 MG TAB PO PRN; -DEXAMETHASONE SOD PHOSPHATE 4 MG/ML 1 ML VIAL IV ONE; +HYDROcodone/APAP 5-325MG 1 EACH TAB ONE; +HYDROcodone/APAP 5-325MG 1 EACH TAB PO ONE; +HYDROmorphone 0.5 MG/0.5 ML SYRINGE IVP ONE; -HYDROmorphone 0.5 MG/0.5 ML SYRINGE IVP PRN; +KETAMINE 10 MG/ML 20 ML VIAL ONE; +LABETALOL 5 MG/ML VIAL MDV ONE; +LACTATED RINGERS 1,000 ML IV ONE; +LACTATED RINGERS 1,000 ML IV SCH; +LIDOCAINE 1% (10MG/ML) FOR IV START INTRADERMA PRN; -MELOXICAM 7.5 MG TAB PO PRN; +MIDAZOLAM 2 MG/2 ML VIAL IVP ONE; +MIDAZOLAM 2 MG/2 ML VIAL ONE; +PROPOFOL 10 MG/ML 20 ML VIAL IV ONE; +ROPIVACAINE 5 MG/ML 30 ML VIAL ONE; -ROPIVACAINE/EPI/CLONIDINE/KET 50 ML SYRINGE MISCELLANE PRN; -TRANEXAMIC ACID 1,000 MG in SODIUM CHLORIDE 0.9% 100 ML IVPB PRN; +fentaNYL (PF) 50 MCG/ML 2 ML AMP IVP ONE; +fentaNYL (PF) 50 MCG/ML 2 ML AMP ONE; +hydrALAZINE HCL 20 MG/ML 1 ML VIAL ONE
[2021-09-15 14:41] LABS: HCT 40.8 % (34.0-46.0); HGB 13.5 gm/dL (11.4-16.0); MCH 30.5 pg (25.0-35.0); MCHC 32.9 g/dL (31.0-37.0); MCV 92.5 fL (80.0-100.0); Mean Platelet Volume 7.2; Platelet Count 278 k/uL (150-450); RBC 4.41 m/uL (3.80-5.40); RDW 13.6 % (11.5-15.5); WBC 6.3 k/uL (3.8-10.6)
[2021-09-15 14:43] LABS: Potassium 4.5 mmol/L (3.5-5.1)
[2021-09-15 17:46] VITALS: TEMP 98
[2021-09-15] MEDS: HYDROmorphone 0.5 MG/0.5 ML SYRINGE IVP PRN ×5 (17:53→18:25)
[2021-09-15 18:13] VITALS: RESP 16
[2021-09-15 19:17] VITALS: BP 126/56; PULSE 81
--- NOTE | 2021-09-15 21:18 | P.OP ---
Date of Procedure: 09/15/21 Preoperative Diagnosis: 1.) Right intra-articular distal radius fracture, greater than 3 parts. 2.) Right distal ulna fracture Postoperative Diagnosis: 1.) Right intra-articular distal radius fracture, greater than 3 parts. 2.) Right distal ulna fracture Procedure(s) Performed: 1.) Open reduction internal fixation of right intra-articular distal radius fracture, greater than 3 parts. 2.) Closed treatment of right distal ulna fracture Implants: 1.) Gumaro/Biomet DVR Crosslock DRV plate, short narrow. Anesthesia: regional Surgeon: Sharif Levi Servomechanism Designer #1: Theron Burnett Estimated Blood Loss (ml): 30 Pathology: none sent Condition: stable Disposition: PACU Description of Procedure: This is a 81 year old female who sustained a right comminuted displaced intra- articular distal radius fracture and presents today for open reduction internal fixation of their right distal radius fracture . Risks and benefits of surgery were discussed with the patient including bleeding, damage to surrounding tissue, infection, need for further surgery as well as risks of anesthesia including pulmonary embolism and even and the patient wished to proceed with surgical intervention. The patients was seen in the pre-operative area by myself. Consent and H&P were completed and updated. The correct extremity was marked in the pre-operative area by myself and all other questions were answered. Operative Narrative: The patient was brought to the operating room by the department of anesthesia. They remained on the portable stretcher and a rolling hand table was brought to the side of the operative extremity. Pre-operative time out was performed indicating the correct patient, procedure and laterality. All in the room agreed. Pre-operative antibiotics were given prior to skin incision. The patient was then drifted off to sleep by the department of anesthesia. A nonsterile tourniquet was then applied to the operative extremity and the right upper extremity was then prepped and draped in normal sterile fashion. The operative extremity was the exsanguinated with an esmarch bandage and the tourniquet was inflated to 250mmHg. A longitudinal incision centered over the FCR tendon was made with a 15-blade scalpel. Blunt dissection was taken down to the FCR tendon sheath using Bovie cautery for meticulous hemostasis. The FCR sheath was opened with tenotomy scissors. The floor of the FCR sheath was then incised with a 15-blade scalpel and the FPL tendon and muscle belly was swept bluntly in an ulnar direction to reveal the pronator quadratus. Pronator quadratus was sharply incised with a 15-blade scalpel along the radial border of the distal radius, coming across transversely parallel to the joint at the level of the watershed line, radial artery was identified and protected. Periosteal elevator was then used to elevate the pronator quadratus off the distal radius from a radial to ulnar fashion. A [place] elevator was used to try to lever the distal pieces back into place and free up the fractured fragments. There was extensive comminution and poor bone quality in the distal radius. The radial styloid was in approximately 3 separate fragments. Brachioradialis was released to gain better control of the radial styloid fragments. A short/narrow width Gumaro/biomet crosslock DVR plate was chosen to fit the patients anatomy best. This was placed on the distal radius under direct visualization and the K- wire was placed in the shaft k-wire hole. The fracture was then reduced to the plate distally and a k-wire was placed in the ulnar most k-wire hole in the proximal row. Fluoroscopy was then utilized to confirm acceptable placement of plate in the radial/ulnar plane and distal k-wire placement was confirmed to be proximal to the subchondral bone on 20 degree elevated lateral view confirming extra-articular screw placement. Anglican of radial height, inclination and volar tilt was difficult due to the amount of comminution and separate fragments and poor bone quality however best possible alignment was achieved. The oblong hole was drilled and filled with a cortical screw. The proximal row and radial styloid screw hole was then drilled and filled from ulnar to radial with locking screws. Distal row was then drilled and filled with locking smooth pegs. Attention was then brought to the proximal shaft screws. Proximal crosslocking shaft screws were drilled with a nonlocking screws. The wrist joint was the ranged and full smooth flexion/extension with no crepitus appreciated. Final imaging was taken confirming extra-articular placement of distal screws at DRUJ and radiocarpal joint. The wound was then irrigated. Subcutaneous closure was performed with 3-0 vicryl followed by skin closure with 4-0 nylon suture. Sterile dressing consisting of adaptic, 4x4s, and a volar and dorsal plaster splint was applied. Tourniquet was let down and the hand had immediate perfusion. The patient was then woken by the department of anesthesia and transferred to PACU in stable condition. The patient was then woken by the department of anesthesia and transferred to PACU in stable condition. Theron BARTLETT was present for the case and assisted in major portions of the operation and hardware placement. Sharif Levi D.O. Orthopedic Hand/Upper Extremity Surgeon
--- NOTE | 2021-09-27 12:41 | P.ANPRN ---
Procedure Note - Anesthesia - Nerve Block Performed Right Supraclavicular Single Time Out Performed: Yes Date of Procedure: 09/15/21 Procedure Start Time: 14:29 Procedure Stop Time: 14:35 Location of Patient: PreOp Indication: Acute Post-Operative Pain, Requested by Surgeon Sedation Type: Sedate with meaningful contact maintained Preparation: Sterile Prep Position: Supine Needle Types: Pajunk Needle Gauge: 21 Ultrasound used to visualize needle placement: Yes Ultrasound used to observe medication spread: Yes Blood Aspirated: No Pain Paresthesia on Injection Noted: No Resistance on Injection: Normal Image Stored and Saved: Yes Events: Uneventful and Well Tolerated (ropi .5% 20cc)
== END | disposition home or self-care (01) ==
LOC: OR 12:48
PROVIDERS: ATTEND Orthopaedic Surgery Hand Surgery
DX: S52.571A Other intraarticular fracture of lower end of right radius, initial encounter for closed fracture (principal); S52.601A Unspecified fracture of lower end of right ulna, initial encounter for closed fracture; W18.30XA Fall on same level, unspecified, initial encounter; H35.30 Unspecified macular degeneration; Z96.643 Presence of artificial hip joint, bilateral; Z98.890 Other specified postprocedural states; Z98.42 Cataract extraction status, left eye; Z98.41 Cataract extraction status, right eye; F41.9 Anxiety disorder, unspecified; Z80.7 Family history of other malignant neoplasms of lymphoid, hematopoietic and related tissues; I10 Essential (primary) hypertension; N28.9 Disorder of kidney and ureter, unspecified; G62.9 Polyneuropathy, unspecified; Z90.49 Acquired absence of other specified parts of digestive tract; Z79.899 Other long term (current) drug therapy; K21.9 Gastro-esophageal reflux disease without esophagitis; M19.90 Unspecified osteoarthritis, unspecified site; Z79.01 Long term (current) use of anticoagulants; Z82.49 Family history of ischemic heart disease and other diseases of the circulatory system
CPT/HCPCS: 25609; 25535; 80051; 85027; C1713 ×2; J2250; J0360; J0690; J2405; J3010; J2795; J2704; J1170; 64415; 76942

== ENCOUNTER 2021-10-10 07:30 | Emergency (ER) | payer MEDICARE ==
[2021-10-10 07:36] VITALS: BP 134/90; PULSE 76; RESP 18; TEMP 98.9
[2021-10-10] MEDS ORDERED: KETOROLAC 15 MG/ML 1 ML VIAL IM STA (07:49)
[2021-10-10] MEDS ORDERED: GABAPENTIN 300 MG CAP PO STA (07:49)
[2021-10-10] MEDS ORDERED: LIDOCAINE 5% PATCH TOPICAL STA (07:49)
[2021-10-10 08:13] LABS: Appearance,Urine Cloudy (Clear); Bacteria,Urine Occasional /hpf; Bilirubin,Urine Negative (Negative); Blood,Urine Negative (Negative); Color,Urine Yellow; Glucose,Urine (UA) Negative (Negative); Ketones,Urine Negative (Negative); Leukocyte Esterase,Urine Moderate (Negative); Mucus,Urine Rare /hpf; Nitrite,Urine Positive (Negative); PH, Urine 6.5 (5.0-8.0); Protein,Urine Negative (Negative); RBC,Urine <1 /hpf (0-5); Specific Gravity,Urine 1.019 (1.001-1.035); Squamous Epithelial Cell,Urine <1 /hpf (0-4); Urobilinogen,Urine <2.0 mg/dL (<2.0); WBC,Urine 6 /hpf (0-5)
--- NOTE | 2021-10-10 08:30 | CT ---
EXAMINATION TYPE: CT lumbar spine wo con DATE OF EXAM: 10/10/2021 8:20 AM COMPARISON: None HISTORY: Low back pain CT DLP: 1037.4 mGycm Automated exposure control for dose reduction was used. Unenhanced CT of the lumbar spine was performed. Bone and soft tissue window settings are submitted as well as coronal and sagittal reconstructions. L1-L2: Normal disc space height. No disc herniation protrusion or central stenosis. No facet joint arthropathy. No evidence for foraminal encroachment. L2-L3: Mild degenerative disc space narrowing. Circumferential disc bulge greatest posteriorly. No ev idence for a disc herniation or central stenosis. No facet joint arthropathy. No evidence for forami nal encroachment. L3-L4: Grade 1 anterolisthesis L3 on L4 measuring 5.5 mm. Severe facet joint arthropathy without spon dylolysis. Moderate posterior disc bulge and degenerative disc space narrowing. Hypertrophy ligamentu m flavum. Moderate central stenosis. L4-L5: Grade 1 anterolisthesis L4 and L5 measuring approximately 6.8 mm.Severe facet joint arthropath y without spondylolysis. Moderate posterior disc bulge and degenerative disc space narrowing. Hypertr ophy ligamentum flavum. Moderate central stenosis. L5-S1: Severe degenerative disc space narrowing with vacuum disc seen. Posterior disc bulge effaces t he ventral thecal sac and results in bilateral lateral recess stenosis. Facet joint arthropathy resul ting in moderate bilateral foraminal encroachment left greater than right. No evidence for compression fracture or paraspinal mass. IMPRESSION: 1. Multilevel degenerative disc disease. 2. 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 3. Grade 1 anterolisthesis L3 on L4 and L4 and L5.
--- NOTE | 2021-10-10 08:33 | CT ---
EXAMINATION TYPE: CT pelvis wo con DATE OF EXAM: 10/10/2021 COMPARISON: None HISTORY: Low back pain CT DLP: 575.9 mGycm Automated exposure control for dose reduction was used. Unenhanced CT of the pelvis was performed wit h bone and soft tissue window settings submitted. FINDINGS: There is bilateral total hip arthroplasty noted with femoral and acetabular components appearing well seated bilaterally. Streak artifact limits evaluation. There is fracture noted to involve the right superior and inferior pubic rami. No additional acute fr actures are seen. Sacrum is intact. Pelvic structures are limited in evaluation. IMPRESSION: 1. Fractures of the superior and inferior right-sided pubic rami.
[2021-10-10] MEDS ORDERED: SULFAMETHOX-TMP 800-160MG 1 EACH TAB PO STA (09:00)
[2021-10-10] MEDS ORDERED: HYDROcodone/APAP 5-325MG 1 EACH TAB PO STA (09:00)
--- NOTE | 2021-10-10 09:03 | ED ---
General Adult HPI - General Chief complaint: Back Pain/Injury Stated complaint: UTI Time Seen by Provider: 10/10/21 07:41 Source: patient, RN notes reviewed, old records reviewed Mode of arrival: wheelchair Limitations: no limitations - History of Present Illness Initial comments: Patient is an 81-year-old female with past medical history remarkable for cancer, hypertension, renal disease with recent fall resulting in right distal radial fracture as well as right-sided pubic rami fracture who presents emergency Department complaining of worsening lower back pain with radicular symptoms into the bilateral legs. Denies saddle anesthesia. Denies lower extremity weakness. Denies urinary or bowel incontinence or retention. Describes the pain as sharp. Pinpoint over the lower lumbar spine. Patient states she is being managed outpatient for her surgery as well as pelvic fracture. Presents for further evaluation of this time.States the pain has been progressively getting worse over the last week. - Related Data Home Medications Medication Instructions Recorded Confirmed Loratadine [Claritin] 10 mg PO DAILY 03/06/20 09/15/21 Albuterol Inhaler [Ventolin Hfa 1 puff INHALATION RT-Q4H PRN 03/17/21 09/15/21 Inhaler] Gabapentin 600 mg PO BID 03/17/21 09/15/21 Previous Rx's Medication Instructions Recorded lisinopriL [Zestril] 20 mg PO DAILY #0 10/27/20 Acetaminophen Tab [Tylenol] 650 mg PO Q6HR PRN tab 03/21/21 Famotidine [Pepcid] 20 mg PO BID #60 tablet 03/21/21 Melatonin 5 mg PO HS tablet 03/21/21 Zinc Sulfate [Orazinc] 220 mg PO DAILY #30 cap 03/21/21 HYDROcodone/APAP 5-325MG [[place] 1 tab PO Q6HR PRN 3 Days #24 tab 09/15/21 5-325] HYDROcodone/APAP 5-325MG [[place] 1 tab PO Q6HR PRN 3 Days #12 tab 10/10/21 5-325] Lidocaine 5% Patch [Lidoderm 5% 1 patch TOPICAL DAILY PRN 7 Days 10/10/21 Patch] #7 patch Sulfamethox-Tmp 800-160Mg [Bactrim 1 tab PO Q12HR 7 Days #14 tab 10/10/21 DS 800-160 mg] Allergies Allergy/AdvReac Type Severity Reaction Status Date / Time No Known Allergies Allergy Verified 10/10/21 07:33 Review of Systems ROS Statement: Those systems with pertinent positive or pertinent negative responses have been documented in the HPI. Review of Systems: CONST: Denies fever EYES: Denies blurry vision ENT: Denies nasal congestion C/V: Denies Chest pain RESP: Denies shortness of breath GI: Denies abdominal pain : Denies dysuria SKIN: Denies rash. MSK: Endorses back pain. NEURO: Denies headache ROS Other: All systems not noted in ROS Statement are negative. Past Medical History Past Medical History: Cancer, Eye Disorder, GERD/Reflux, Hypertension, Osteoarthritis (OA), Renal Disease Additional Past Medical History / Comment(s): Hiatal hernia, leaky heart valve, nephrolithiasis-passed stones on her own, bilateral macular degeneration, neuropathy bilateral calves, skin cancer. FX RT WRIST 09/05/21, ALSO HAS CHIPPED BONE IN LT FOOT AND BRUISED RT GROIN FROM FALL 09/05/21 History of Any Multi-Drug Resistant Organisms: None Reported Past Surgical History: Adenoidectomy, Cholecystectomy, Joint Replacement, Orthopedic Surgery, Tonsillectomy Additional Past Surgical History / Comment(s): Bilateral total hip arthroplasties, R foot bunionectomy, R wrist carpal tunnel release, L eye reconstructive surgery, skin cancer removals, D&C, EGD, colonoscopy, bilateral cataract removals, R wrist Past Anesthesia/Blood Transfusion Reactions: No Reported Reaction Past Psychological History: Anxiety Smoking Status: Never smoker Past Alcohol Use History: None Reported Past Drug Use History: None Reported - Past Family History Father Family Medical History: Coronary Artery Disease (CAD), Myocardial Infarction (RI) Additional Family Medical History / Comment(s): Father had a massive RI at the age of 61 yrs and during CABG surgery. Mother Family Medical History: Cancer Additional Family Medical History / Comment(s): Hodgkins General Exam - General Exam Comments Initial Comments: General: Appears in mild to moderate distress secondary to lower back pain. HEAD: Normal with no signs of head trauma. EYES: EOMI ENT: Hearing grossly intact RESPIRATORY:, Breath sounds bilaterally. No respiratory distress. C/V: Regular rate and rhythm. Peripheral pulses 2+ and intact throughout. ABD: Abdomen is soft, nontender, nondistended. EXT: Cast over the right hand and wrist secondary to recent surgery. Patient has pinpoint tenderness to palpation midline lower lumbar spine. Pelvis is stable. No other acute complaints at this time. SKIN: No rashes or lesions observed on exposed skin. NEURO: Alert and oriented 4. No focal sensory strength deficits. Limitations: no limitations Course Vital Signs 10/10/21 07:33 Temperature 98.9 F Pulse Rate 76 Respiratory 18 Rate Blood Pressure 134/90 O2 Sat by Pulse 97 Oximetry Medical Decision Making - Medical Decision Making Based on patient's presentation and physical exam, I'm concerned for lower back pain. Since to be radicular in nature. Has known pelvis fracture as well. Being managed conservatively by her orthopedic surgeon. Patient is concerned she is having a UTI. She spoke with her PCP over the phone who prescribed her muscle relaxers without much improvement in her symptoms. Therefore we will obtain a urinalysis and I recommended CT imaging of the lumbar spine and pelvis. She was in agreement this plan. She has no red flag symptoms to suggest cauda equina syndrome. Urinalysis is remarkable for positive nitrites, moderate leuk esterase with 6 WBCs. Concerning for UTI. Lumbar spine CT revealed no acute fracture or subluxation. There is some spinal canal stenosis at L3-L4 and L4-L5 as well as anterolisthesis. Pelvis CT reveals the known pelvic fracture, which is a superior and inferior right-sided pubic rami fracture. This is known by the patient's orthopedic surgeon and is following up outpatient with them. This is from the fall multiple weeks ago. I updated the patient results of the imaging and urinalysis. She expressed understanding. I believe it is safer to follow-up with orthopedic surgeon and she was in agreement. Will be started on antibiotics as well as given additional pain medications. Vital signs are within normal limits. Patient will be discharged home at this time. I will provide the patient with a prescription for [place] 5, Bactrim. I instructed the patient to follow up with their PCP in the next 3 days. I explained that the patient should return to the emergency department if they experience any worsening symptoms. Strict return precautions were discussed with the patient. The patient expressed understanding of these instructions. I answered all questions that the patient had. The patient was discharged home in good condition with their prescriptions and follow up information. - Lab Data Lab Results 10/10/21 Range/Units 07:50 Urine Color Yellow Urine Appearance Cloudy H (Clear) Urine pH 6.5 (5.0-8.0) Ur Specific [place] 1.019 (1.001-1.035) Urine Protein Negative (Negative) Urine Glucose (UA) Negative (Negative) Urine Ketones Negative (Negative) Urine Blood Negative (Negative) Urine Nitrite Positive H (Negative) Urine Bilirubin Negative (Negative) Urine Urobilinogen <2.0 (<2.0) mg/dL Ur Leukocyte Esterase Moderate H (Negative) Urine RBC <1 (0-5) /hpf Urine WBC 6 H (0-5) /hpf Ur Squamous Epith Cells <1 (0-4) /hpf Urine Bacteria Occasional H (None) /hpf Urine Mucus Rare H (None) /hpf Disposition Clinical Impression: UTI (urinary tract infection), Pelvis fracture, Back pain Disposition: HOME SELF-CARE Condition: Good Instructions (If sedation given, give patient instructions): Urinary Tract Infection in Women (ED), Acute Low Back Pain (ED) Additional Instructions: Follow up with your ortho doctor for known pelvic fractures. Prescriptions: Sulfamethox-Tmp 800-160Mg [Bactrim DS 800-160 mg] 1 tab PO Q12HR 7 Days #14 tab Lidocaine 5% Patch [Lidoderm 5% Patch] 1 patch TOPICAL DAILY PRN 7 Days #7 patch PRN Reason: Pain HYDROcodone/APAP 5-325MG [[place] 5-325] 1 tab PO Q6HR PRN 3 Days #12 tab PRN Reason: Pain Is patient prescribed a controlled substance at d/c from ED?: Yes When asked, does pt state using other controlled substances?: Yes If prescribed controlled substance>3 days was MAPS reviewed?: Prescribed <3 Days If opioid is for acute pain is fill amount 7 days or less?: Yes If Rx opioid, was Start Talking consent form obtained?: Yes Referrals: Mell Fox MD [Primary Care Provider] - 1-2 days Time of Disposition: 09:00
== END 2021-10-10 09:22 | disposition home or self-care (01) ==
LOC: EC 07:30
DX: S32.9XXA Fracture of unspecified parts of lumbosacral spine and pelvis, initial encounter for closed fracture (principal); N39.0 Urinary tract infection, site not specified; Z82.49 Family history of ischemic heart disease and other diseases of the circulatory system; W19.XXXA Unspecified fall, initial encounter
CPT/HCPCS: 81001; 72192; 72131; 99284; 96372; J1885

== ENCOUNTER → 2021-12-17 | Outpatient (CLI) | payer MEDICARE ==
--- NOTE | 2021-12-21 06:30 | MM ---
Reason for Exam: Screening (asymptomatic). Last mammogram was performed 1 year(s) and 8 month(s) ago. Patient History: Menarche at age 14. First Full-Term at age 29. Postmenopausal. Other cancer, age 74. Estrogen, starting at age 71 for 5 years. Risk Values: Rachel 5 year model risk: 1.8%. NCI Lifetime model risk: 2.8%. Prior Study Comparison: 02/13/2018 Bilateral Screening Mammogram, [facility]. 04/06/2019 Bilateral Screening Mammogram, [facility]. 04/22/2020 Bilateral Screening Mammogram, [facility]. Tissue Density: There are scattered fibroglandular densities. Findings: Analyzed By CAD. There are a few scattered benign-appearing round calcifications redemonstrated throughout both breasts. Stable prominent subareolar region of the bilateral breasts. Benign appearing bilateral axillary lymph nodes are redemonstrated. There is no suspicious group of microcalcifications or new suspicious mass in either breast. Overall Assessment: Benign, BI-RAD 2 Management: Screening Mammogram of both breasts in 1 year. A clinical breast exam by your physician is recommended on an annual basis and results should be correlated with mammographic findings. Electronically signed and approved by: Surjit Randall M.D.
== END | disposition home or self-care (01) ==
LOC: RADMAMWWP 14:21
PROVIDERS: ATTEND Internal Medicine
DX: Z12.31 Encounter for screening mammogram for malignant neoplasm of breast (principal); Z78.0 Asymptomatic menopausal state; Z85.89 Personal history of malignant neoplasm of other organs and systems
CPT/HCPCS: 77063; 77067

== ENCOUNTER → 2023-01-18 | Outpatient (CLI) | payer MEDICARE ==
--- NOTE | 2023-01-19 20:40 | MM ---
Reason for Exam: Screening (asymptomatic). Last mammogram was performed 1 year(s) and 1 month(s) ago. Patient History: Menarche at age 14. First Full-Term at age 29. Postmenopausal. Patient has history of breast feeding. Other cancer, age 74. Estrogen for 5 years from age 71 until age 76. Sister had breast cancer, age 78. Risk Values: Rachel 5 year model risk: 3.2%. NCI Lifetime model risk: 4.6%. Prior Study Comparison: 02/05/2016 Bilateral Screening Mammogram, [facility]. 02/06/2017 Bilateral Screening Mammogram, [facility]. 02/13/2018 Bilateral Screening Mammogram, [facility]. 04/06/2019 Bilateral Screening Mammogram, [facility]. 04/22/2020 Bilateral Screening Mammogram, [facility]. 12/17/2021 Bilateral MG 3D screening mammo w/cad, [facility]. Tissue Density: There are scattered fibroglandular densities. Findings: Analyzed By CAD. Benign oil cyst calcifications are redemonstrated. There is no suspicious group of microcalcifications or new suspicious mass in either breast. Overall Assessment: Benign, BI-RAD 2 Management: Screening Mammogram of both breasts in 1 year. See note below in regards to patient's increased 5 year Rachel score. Patient should continue monthly self-breast exams. A clinical breast exam by your physician is recommended on an annual basis. This exam should not preclude additional follow-up of suspicious palpable abnormalities. Note on Rachel scores and lifetime risk: 1. A Rachel score greater than 3% is considered moderate risk. If this is the case, consider specialist referral to assess eligibility for a risk reducing agent. 2. If overall lifetime risk for the development of breast cancer is 20% or higher, the patient may qualify for future screening with alternating mammogram and breast MRI. Electronically signed and approved by: Juliana Cervantes M.D. Radiologist
== END | disposition home or self-care (01) ==
LOC: RADMAMWWP 13:21
PROVIDERS: ATTEND Internal Medicine
DX: Z12.31 Encounter for screening mammogram for malignant neoplasm of breast (principal); Z78.0 Asymptomatic menopausal state; Z80.3 Family history of malignant neoplasm of breast
CPT/HCPCS: 77063; 77067

== ENCOUNTER → 2023-03-20 | Outpatient (CLI) | payer MEDICARE ==
[2023-03-21 03:07] LABS: Calcium 9.2 mg/dL (8.7-10.3); Magnesium 2.3 mg/dL (1.5-2.4)
== END | disposition home or self-care (01) ==
LOC: LABWHC1 15:13
PROVIDERS: ATTEND Psychiatry & Neurology Neurology
DX: G62.9 Polyneuropathy, unspecified (principal); Z79.899 Other long term (current) drug therapy
CPT/HCPCS: 36415; 82306; 82310; 82607; 83036; 83735

== ENCOUNTER → 2024-11-05 | Outpatient (CLI) | payer MEDICARE ==
--- NOTE | 2024-11-05 13:37 | MM ---
Reason for Exam: Screening (asymptomatic). Last mammogram was performed 1 year(s) and 9 month(s) ago. Patient History: Menarche at age 14. First Full-Term at age 29. Postmenopausal. Patient has history of breast feeding. Estrogen for 5 years from age 71 until age 76. Sister had breast cancer, age 78. Risk Values: Rachel 5 year model risk: 2.9%. NCI Lifetime model risk: 3.6%. Prior Study Comparison: 04/22/2020 Bilateral Screening Mammogram, [facility]. 12/17/2021 Bilateral MG 3D screening mammo w/cad, [facility]. 01/18/2023 Bilateral MG 3D screening mammo w/cad, [facility]. Tissue Density: There are scattered areas of fibroglandular density. Findings: Analyzed By CAD. Right breast: There is no suspicious group of microcalcifications or new suspicious mass. Benign-appearing calcifications right breast. Left breast: There is no suspicious group of microcalcifications or new suspicious mass. Benign-appearing calcifications left breast. Overall Assessment: Benign, BI-RAD 2 Management: Screening Mammogram of both breasts in [address] [facility] will attempt to contact patient to return for supplemental views and ultrasound if indicated. Patient should continue monthly self-breast exams. A clinical breast exam by your physician is recommended on an annual basis. This exam should not preclude additional follow-up of suspicious palpable abnormalities. Note on Rachel scores and lifetime risk: 1. A Rachel score greater than 3% is considered moderate risk. If this is the case, consider specialist referral to assess eligibility for a risk reducing agent. 2. If overall lifetime risk for the development of breast cancer is 20% or higher, the patient may qualify for future screening with alternating mammogram and breast MRI. [facility], , 11/05/2024 1:35 PM. Electronically signed and approved by: Siva Granado DO
== END | disposition home or self-care (01) ==
LOC: RADMAMWWP 13:00
PROVIDERS: ATTEND Family Medicine
DX: Z12.31 Encounter for screening mammogram for malignant neoplasm of breast (principal); R92.323 Mammographic fibroglandular density, bilateral breasts; R92.1 Mammographic calcification found on diagnostic imaging of breast; Z80.3 Family history of malignant neoplasm of breast; Z78.0 Asymptomatic menopausal state
CPT/HCPCS: 77063; 77067